=== PATIENT | male | born 1945 | race Caucasian/White ===

== ENCOUNTER → 2016-11-17 | Outpatient (CLI) | payer MEDICARE ==
[2016-11-17 13:14] LABS: ABSOLUTE BASOPHILS # (AUTO) 0.1 10^3/uL (0.0-0.2); ABSOLUTE EOSINOPHILS # (AUTO) 0.4 10^3/uL (0.0-0.6); ABSOLUTE LYMPHOCYTES (AUTO) 0.5 10^3/uL (0.5-4.7); ABSOLUTE MONOCYTES (AUTO) 0.9 10^3/uL (0.1-1.4); ABSOLUTE NEUT (AUTO) 7.9 10^3/uL (1.7-8.2); BASOPHILS % (AUTO) 0.7 % (0-2); EOSINOPHILS % (AUTO) 3.9 % (0-6); HEMATOCRIT 41.7 % (37.9-51.0); HEMOGLOBIN 13.3 g/dL (13.5-17.0); HGB HCT DIFFERENCE -1.8; LYMPHOCYTES % (AUTO) 5.5 % (13-45); MEAN CORPUSCULAR HEMOGLOBIN 28.9 pg (27.0-33.4); MEAN CORPUSCULAR HGB CONC 31.8 g/dL (32.0-36.0); MEAN CORPUSCULAR VOLUME 91 fl (80-97); MONOCYTES % (AUTO) 9.5 % (3-13); SEGMENTED NEUTROPHILS % (AUTO) 80.4 % (42-78); WHITE BLOOD COUNT 9.8 10^3/uL (4.0-10.5)
[2016-11-17 13:22] LABS: APPEARANCE,URINE CLEAR; BILIRUBIN,URINE NEGATIVE (NEGATIVE); GLUCOSE, URINE NEGATIVE (NEGATIVE); KETONES,URINE NEGATIVE (NEGATIVE); LEUKOCYTE ESTERASE,URINE NEGATIVE (NEGATIVE); NITRITE,URINE NEGATIVE (NEGATIVE); PROTEIN,URINE NEGATIVE (NEGATIVE); URINE SPECIFIC GRAVITY 1.012; UROBILINOGEN,URINE NEGATIVE mg/dL (<2.0)
[2016-11-17 13:26] LABS: ANION GAP 14 (5-19); BLOOD UREA NITROGEN 33 mg/dL (7-20); CARBON DIOXIDE 26 mmol/L (22-30); CHLORIDE 101 mmol/L (98-107); CREATININE RESULT 1.38 mg/dL (0.52-1.25); GLUCOSE 103 mg/dL (75-110); POTASSIUM 4.8 mmol/L (3.6-5.0); SODIUM 141.1 mmol/L (137-145)
[2016-11-18 11:40] LABS: CREATININE URINE 57.7 mg/dL (Not Estab.)
[2016-11-18 11:47] LABS: MICROALBUMIN URINE <3.0 ug/mL (Not Estab.)
== END ==
LOC: OD 11:35
PROVIDERS: ATTEND Internal Medicine Nephrology
DX: N18.3 Chronic kidney disease, stage 3 (moderate) (principal); Z94.0 Kidney transplant status
CPT/HCPCS: 36415; 80048; 80197; 81001; 82043; 82570; 85025

== ENCOUNTER → 2017-01-20 | Outpatient (CLI) | payer MEDICARE | LOC: OD 11:34 | PROVIDERS: ATTEND Internal Medicine Critical Care Medicine | DX: Z53.9 Procedure and treatment not carried out, unspecified reason (principal) ==

== ENCOUNTER → 2017-01-28 | Outpatient (CLI) | payer MEDICARE | LOC: RAD 12:09 | PROVIDERS: ATTEND Internal Medicine Critical Care Medicine | DX: R91.1 Solitary pulmonary nodule (principal); J47.9 Bronchiectasis, uncomplicated | CPT/HCPCS: 71250 ==

== ENCOUNTER → 2017-03-23 | Outpatient (CLI) | payer MEDICARE ==
[2017-03-23 10:09] LABS: ABSOLUTE BASOPHILS # (AUTO) 0.1 10^3/uL (0.0-0.2); ABSOLUTE EOSINOPHILS # (AUTO) 0.5 10^3/uL (0.0-0.6); ABSOLUTE LYMPHOCYTES (AUTO) 0.8 10^3/uL (0.5-4.7); ABSOLUTE MONOCYTES (AUTO) 1.2 10^3/uL (0.1-1.4); ABSOLUTE NEUT (AUTO) 6.5 10^3/uL (1.7-8.2); EOSINOPHILS % (AUTO) 5.6 % (0-6); HEMATOCRIT 42.7 % (37.9-51.0); HEMOGLOBIN 13.6 g/dL (13.5-17.0); HGB HCT DIFFERENCE -1.9; LYMPHOCYTES % (AUTO) 9.1 % (13-45); MEAN CORPUSCULAR HEMOGLOBIN 28.9 pg (27.0-33.4); MEAN CORPUSCULAR HGB CONC 31.8 g/dL (32.0-36.0); MEAN CORPUSCULAR VOLUME 91 fl (80-97); MONOCYTES % (AUTO) 13.1 % (3-13); RED CELL DISTRIBUTION WIDTH 15.7 % (11.5-14.0); SEGMENTED NEUTROPHILS % (AUTO) 71.2 % (42-78); WHITE BLOOD COUNT 9.1 10^3/uL (4.0-10.5)
[2017-03-23 10:44] LABS: ALBUMIN 3.7 g/dL (3.5-5.0); ANION GAP 11 (5-19); BLOOD UREA NITROGEN 25 mg/dL (7-20); CALCIUM 8.9 mg/dL (8.4-10.2); CARBON DIOXIDE 28 mmol/L (22-30); CHLORIDE 102 mmol/L (98-107); CREATININE RESULT 1.16 mg/dL (0.52-1.25); GLUCOSE 87 mg/dL (75-110); PHOSPHORUS 4.4 mg/dL (2.5-4.5); POTASSIUM 5.1 mmol/L (3.6-5.0)
[2017-03-24 07:20] LABS: VITAMIN D 25-HYDROXY 31.6 ng/mL (30.0-100.0)
[2017-03-24 10:57] LABS: APPEARANCE,URINE CLEAR; BILIRUBIN,URINE NEGATIVE (NEGATIVE); GLUCOSE, URINE NEGATIVE (NEGATIVE); KETONES,URINE NEGATIVE (NEGATIVE); LEUKOCYTE ESTERASE,URINE NEGATIVE (NEGATIVE); NITRITE,URINE NEGATIVE (NEGATIVE); PROTEIN,URINE NEGATIVE (NEGATIVE); URINE SPECIFIC GRAVITY 1.015; UROBILINOGEN,URINE NEGATIVE mg/dL (<2.0)
[2017-03-24 13:58] LABS: TACROLIMUS (FK506) 3.6 ng/mL (2.0-20.0)
[2017-03-25 11:40] LABS: CREATININE URINE 85.7 mg/dL (Not Estab.)
[2017-03-25 13:21] LABS: MICROALBUMIN URINE <3.0 ug/mL (Not Estab.)
== END ==
LOC: OD 09:01
PROVIDERS: ATTEND Internal Medicine Nephrology
DX: N18.3 Chronic kidney disease, stage 3 (moderate) (principal); Z94.0 Kidney transplant status
CPT/HCPCS: 36415; 80048; 80197; 81001; 82040; 82043; 82306; 82570; 83970; 84100; 85025

== ENCOUNTER → 2017-06-02 | Outpatient (CLI) | payer MEDICARE ==
[2017-06-02 11:37] LABS: ABSOLUTE BASOPHILS # (AUTO) 0.1 10^3/uL (0.0-0.2); ABSOLUTE EOSINOPHILS # (AUTO) 0.5 10^3/uL (0.0-0.6); ABSOLUTE LYMPHOCYTES (AUTO) 0.7 10^3/uL (0.5-4.7); ABSOLUTE MONOCYTES (AUTO) 0.7 10^3/uL (0.1-1.4); ABSOLUTE NEUT (AUTO) 5.3 10^3/uL (1.7-8.2); BASOPHILS % (AUTO) 1.3 % (0-2); HEMATOCRIT 41.5 % (37.9-51.0); HEMOGLOBIN 13.4 g/dL (13.5-17.0); HGB HCT DIFFERENCE -1.3; LYMPHOCYTES % (AUTO) 9.3 % (13-45); MEAN CORPUSCULAR HEMOGLOBIN 29.7 pg (27.0-33.4); MEAN CORPUSCULAR HGB CONC 32.3 g/dL (32.0-36.0); MEAN CORPUSCULAR VOLUME 92 fl (80-97); RED BLOOD COUNT 4.51 10^6/uL (4.35-5.55); RED CELL DISTRIBUTION WIDTH 16.1 % (11.5-14.0); SEGMENTED NEUTROPHILS % (AUTO) 72.4 % (42-78); WHITE BLOOD COUNT 7.3 10^3/uL (4.0-10.5)
[2017-06-02 12:08] LABS: ALANINE AMINOTRANSFERASE 33 U/L (21-72); ALBUMIN 3.9 g/dL (3.5-5.0); ALKALINE PHOSPHATASE 123 U/L (38-126); ANION GAP 11 (5-19); ASPARTATE AMINO TRANSFERASE 24 U/L (17-59); BILIRUBIN,DIRECT 0.5 mg/dL (0.0-0.4); BILIRUBIN,TOTAL 0.6 mg/dL (0.2-1.3); BLOOD UREA NITROGEN 32 mg/dL (7-20); C-REACTIVE PROTEIN 13.1 mg/L (<10.0); CALCIUM 8.9 mg/dL (8.4-10.2); CARBON DIOXIDE 26 mmol/L (22-30); CHLORIDE 105 mmol/L (98-107); CREATININE RESULT 1.37 mg/dL (0.52-1.25); GLUCOSE 101 mg/dL (75-110); SODIUM 141.8 mmol/L (137-145); TOTAL PROTEIN 7.2 g/dL (6.3-8.2)
[2017-06-02 12:15] LABS: ERYTHROCYTE SEDIMENTATION RATE 22 mm/hr (0-20)
== END ==
LOC: OD 10:11
PROVIDERS: ATTEND Physician Assistant
DX: B44.1 Other pulmonary aspergillosis (principal)
CPT/HCPCS: 36415; 80053; 85025; 85652; 86140

== ENCOUNTER → 2017-06-04 | Outpatient (CLI) | payer MEDICARE ==
--- NOTE | 2017-06-04 13:23 | RADIOLOGY REPORT (SQ) ---
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 Images reviewed with lung, soft tissue and bone windows. Reconstructed coronal and sagittal MPR images reviewed. All images st ored on PACS. All CT scanners at this facility use dose modulation, iterative reconstruction, and/or weight based d osing when appropriate to reduce radiation dose to as low as reasonably achievable (ALARA). [facility]: Dose Right [facility]: CareDose [facility]: Dose Right [facility]: Teradose 4D [facility]: [employer] RADIATION DOSE: Up-to-date CT equipment and radiation dose reduction techniques were employed. CTDIv ol: 7.3 mGy. DLP: 273 mGy-cm. mGy. LIMITATIONS: No technical limitations. FINDINGS: LUNGS AND PLEURA: There is stable bronchiectasis in the right lower lobe. Minimal parench ymal scarring. No consolidation or pleural effusions. HILAR AND MEDIASTINAL STRUCTURES: No identified masses or abnormal nodes. No obvious aneurysm. HEART AND VASCULAR STRUCTURES: There is coronary artery calcification. No pericardial effusion. UPPER ABDOMEN: No significant findings. Limited exam. THYROID AND OTHER SOFT TISSUES: No masses. No adenopathy. BONES: No significant finding. HARDWARE: Sternotomy wires are in place. OTHER: No other significant findings. IMPRESSION: Stable CT of the chest with bronchiectasis and scarring in the right lower lobe. No shane picious nodules. No consolidation. TECHNICAL DOCUMENTATION: JOB ID: [id number] Quality ID # [id number]: Final reports with documentation of one or more dose reduction techniques (e.g., Au tomated exposure control, adjustment of the mA and/or kV according to patient size, use of iterative reconstruction technique) 2010 [employer] All Rights Reserved
== END ==
LOC: RAD 12:54
PROVIDERS: ATTEND Physician Assistant
DX: B44.1 Other pulmonary aspergillosis (principal)
CPT/HCPCS: 71250

== ENCOUNTER → 2017-07-26 | Outpatient (CLI) | payer MEDICARE ==
[2017-07-26 10:55] LABS: ANION GAP 11 (5-19); BLOOD UREA NITROGEN 33 mg/dL (7-20); CALCIUM 9.2 mg/dL (8.4-10.2); CARBON DIOXIDE 26 mmol/L (22-30); CHLORIDE 105 mmol/L (98-107); CREATININE RESULT 1.12 mg/dL (0.52-1.25); GLUCOSE 84 mg/dL (75-110); POTASSIUM 5.1 mmol/L (3.6-5.0); SODIUM 142.1 mmol/L (137-145)
== END ==
LOC: OD 09:31
PROVIDERS: ATTEND Internal Medicine Nephrology
DX: N18.2 Chronic kidney disease, stage 2 (mild) (principal); Z94.0 Kidney transplant status
CPT/HCPCS: 36415; 80048; 80197

== ENCOUNTER → 2017-07-30 | Outpatient (CLI) | payer MEDICARE ==
--- NOTE | 2017-07-30 14:11 | RADIOLOGY REPORT (SQ) ---
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 Images reviewed with lung, soft tissue and bone windows. Reconstructed coronal and sagittal MPR images reviewed. All images st ored on PACS. All CT scanners at this facility use dose modulation, iterative reconstruction, and/or weight based d osing when appropriate to reduce radiation dose to as low as reasonably achievable (ALARA). [facility]: Dose Right [facility]: CareDose [facility]: Dose Right [facility]: Teradose 4D [facility]: [employer] RADIATION DOSE: Up-to-date CT equipment and radiation dose reduction techniques were employed. CTDIv ol: 7.1 mGy. DLP: 289 mGy-cm. mGy. LIMITATIONS: No technical limitations. FINDINGS: LUNGS AND PLEURA: Upper lobes are hyperinflated and hyperlucent. No dense consolidation in the lung parenchyma on today's study. subcentimeter smooth round subpleura l nodules are present in the periphery of the right upper lobe, right middle lobe near the minor fiss ure, and at both lung bases, similar or less prominent than on previous exams. There are no pleural effusions today. No focal consolidation in the lower lobes. There is mild stable bronchiectasis in the bilateral lower lobes. No pneumothorax. HILAR AND MEDIASTINAL STRUCTURES: No identified masses or abnormal nodes. No obvious aneurysm. Stab le subcentimeter calcified left hilar lymph nodes. HEART AND VASCULAR STRUCTURES: No aneurysm. No pericardial effusion. Very heavy ruby coronary art yandy calcification. UPPER ABDOMEN: No significant findings. Limited exam. THYROID AND OTHER SOFT TISSUES: No masses. No adenopathy. BONES: Osteoporotic. No acute fracture. HARDWARE: Post sternotomy for CABG. OTHER: No other significant findings. IMPRESSION: No recurrent consolidation. No pleural effusions. Chronic obstructive disease in the l ungs, bronchiectasis bilateral lower lobes, small postinflammatory benign nodules. TECHNICAL DOCUMENTATION: JOB ID: [id number] Quality ID # [id number]: Final reports with documentation of one or more dose reduction techniques (e.g., Au tomated exposure control, adjustment of the mA and/or kV according to patient size, use of iterative reconstruction technique) 2010 [employer]- All Rights Reserved
== END ==
LOC: RAD 12:09
PROVIDERS: ATTEND Internal Medicine Critical Care Medicine
DX: A42.9 Actinomycosis, unspecified (principal); A43.0 Pulmonary nocardiosis; R91.1 Solitary pulmonary nodule; J45.40 Moderate persistent asthma, uncomplicated; R05 Cough; N18.9 Chronic kidney disease, unspecified; J44.9 Chronic obstructive pulmonary disease, unspecified; Z80.1 Family history of malignant neoplasm of trachea, bronchus and lung; Z94.0 Kidney transplant status
CPT/HCPCS: 71250

== ENCOUNTER 2017-11-04 14:01 | Inpatient (IN) | payer MEDICARE ==
[2017-11-04] MEDS ORDERED: IPRATROPIUM/ALBUTEROL 0.5-2.5 MG/3 ML AMPUL NEB ONE ×3 (14:07→22:30)
[2017-11-04] MEDS ORDERED: METHYLPREDNISOLONE INJ 125 MG/2 ML SDV IV ONE (14:42)
--- NOTE | 2017-11-04 14:43 | ER Document Report ---
ED Respiratory Problem - General Stated Complaint: DIFFICULTY BREATHING Time Seen by Provider: 11/04/17 14:29 Notes: This is a 72-year-old male to emergency department chief complaint shortness of breath. On antibiotics recently. Recently started on doxycycline yesterday due to concern for possible pneumonia. Cannot seem to catch his breath. Getting much worse. Seen by the rf engineer as well as the cooler room worker. On chronic immunosuppression for kidney transplant. TRAVEL OUTSIDE OF THE [place] IN LAST 30 DAYS: No - Related Data Allergies/Adverse Reactions: aspirin [Aspirin] Allergy (Verified 09/01/17 18:00) iron [Iron] Allergy (Verified 09/01/17 18:00) Past Medical History - General Information source: Patient, [facility] Records - Social History Smoking Status: Former Smoker Cigarette use (# per day): No Frequency of alcohol use: None Drug Abuse: None Lives with: Spouse/Significant other Family History: Reviewed & Not Pertinent, CAD, Hypertension - Past Medical History Cardiac Medical History: Reports: Hx Atrial Fibrillation, Hx Congestive Heart Failure, Hx Coronary Artery Disease, Hx Heart Attack - x2, Hx Hypercholesterolemia, Hx Pulmonary Embolism Denies: Hx Hypertension Pulmonary Medical History: Reports: Hx Asthma, Hx Bronchitis, Hx COPD, Hx Pneumonia, Hx Sleep Apnea Neurological Medical History: Denies: Hx Cerebrovascular Accident, Hx Seizures Endocrine Medical History: Denies: Hx Diabetes Mellitus Type 1, Hx Diabetes Mellitus Type 2 Renal/ Medical History: Reports: Hx End Stage Renal Disease - Patient was previously on hemodialysis prior to kidney transplant., Hx Hemodialysis - No longer on dialysis. Denies: Hx Peritoneal Dialysis Musculoskeltal Medical History: Reports Hx Arthritis Psychiatric Medical History: Denies: Hx Depression Past Surgical History: Reports: Hx Cardiac Catheterization, Hx Cardiac Surgery - CABG, Hx Coronary Artery Bypass Graft - 3 vessels on 09/19/2008, Hx Coronary Stent - 10/15/1999, Hx Kidney (Renal Surgery) - Transplant, Hx Open Heart Surgery - x 3V - Immunizations Hx Diphtheria, Pertussis, Tetanus Vaccination: Yes Hx Pneumococcal Vaccination: 06/25/16 Review of Systems - Review of Systems Constitutional: Malaise, Weakness EENT: No symptoms reported Cardiovascular: No symptoms reported. denies: Chest pain Respiratory: Cough, Short of breath, Wheezing. denies: Hemoptysis Gastrointestinal: No symptoms reported Genitourinary: No symptoms reported Male Genitourinary: No symptoms reported Musculoskeletal: No symptoms reported Skin: No symptoms reported Hematologic/Lymphatic: No symptoms reported Neurological/Psychological: No symptoms reported Physical Exam - Vital signs Vitals: Pulse Resp BP Pulse Ox 90 12 133/66 H 100 11/04/17 14:03 11/04/17 14:03 11/04/17 14:03 11/04/17 14:03 Interpretation: Normal, Tachypneic - General General appearance: Appears well, Alert - HEENT Head: Normocephalic, Atraumatic Eyes: Normal Pupils: PERRL - Respiratory Respiratory status: No respiratory distress Chest status: Nontender Breath sounds: Wheezing Chest palpation: Normal - Cardiovascular Rhythm: Regular Heart sounds: Normal auscultation Murmur: No - Abdominal Inspection: Normal Distension: No distension Bowel sounds: Normal Tenderness: Nontender Organomegaly: No organomegaly - Back Back: Normal, Nontender - Extremities General upper extremity: Normal inspection, Nontender, Normal color, Normal ROM , Normal temperature General lower extremity: Normal inspection, Nontender, Normal color, Normal ROM , Normal temperature, Normal weight bearing. No: Sadie's sign - Neurological Neuro grossly intact: Yes Cognition: Normal Orientation: AAOx4 Unique Coma Scale Eye Opening: Spontaneous Unique Coma Scale Verbal: Oriented Mcrae [place] Coma Scale Motor: Obeys Commands Unique Coma Scale Total: 15 Speech: Normal Motor strength normal: LUE, RUE, LLE, RLE Sensory: Normal - Psychological Associated symptoms: Normal affect, Normal mood - Skin Skin Temperature: Warm Skin Moisture: Dry Skin Color: Normal Course - Re-evaluation Re-evalutation: 11/04/17 17:08 The patient is with audible wheezing. History of COPD and pulmonary infections. Already on antibiotics. Does have a history of PE. 11/04/17 18:15 Patient states he does not feel a whole lot better. Just feels extremely short of breath. Has extreme exertional dyspnea. Will order VQ scan as well as a echocardiogram. Consulted with Dr. Heath. Patient will likely need to be admitted 11/04/17 19:11 Consult with patient's cooler room worker, Dr. Saavedra. Recommends getting CT scan, sputum culture and giving IV Levaquin and admitted to the hospital. Thinks that there is probably some cardiac issues as well and the echocardiogram will be helpful. He will see patient tomorrow. Admits to the hospitalist service at this time 11/04/17 19:24 Consulted with the hospitalist, Dr. Anaya. Will admit at this time. Starting on Levaquin and Zosyn based on his previous cultures. Will get CT scan without contrast and VQ scan. May need to get CT angiogram if this is unrevealing or patient is not getting better. - Vital Signs Vital signs: Temp Pulse Resp BP Pulse Ox 90 12 133/65 H 100 11/04/17 14:03 11/04/17 17:01 11/04/17 17:00 11/04/17 17:01 - Laboratory Result Diagrams: 11/04/17 17:50 11/04/17 17:50 Laboratory results interpreted by me: 11/04/17 11/04/17 11/04/17 17:50 17:50 17:50 RBC 4.18 L Hgb 12.4 L RDW 15.5 H Seg Neutrophils % 83.1 H Lymphocytes % 6.5 L BUN 24 H Glucose 157 H Lactic Acid 2.4 H NT-Pro-B Natriuret Pep Total Protein 6.1 L Albumin 3.4 L 11/04/17 17:50 RBC Hgb RDW Seg Neutrophils % Lymphocytes % BUN Glucose Lactic Acid NT-Pro-B Natriuret Pep 1980 H Total Protein Albumin Discharge - Discharge Clinical Impression: COPD exacerbation Congestive heart failure Qualifiers: Congestive heart failure type: unspecified Congestive heart failure chronicity : unspecified Qualified Code(s): I50.9 - Heart failure, unspecified Condition: Good Disposition: ADMITTED INPATIENT Admitting Provider: Jazlyn Anaya Unit Admitted: I[facility]U Referrals: PORSCHE SAPP MD [Primary Care Provider] - Follow up as needed
--- NOTE | 2017-11-04 15:35 | RADIOLOGY REPORT (SQ) ---
EXAM DESCRIPTION: CHEST SINGLE VIEW COMPLETED DATE/TIME: 11/04/2017 3:14 pm REASON FOR STUDY: sob COMPARISON: Chest CT scan dated July 2017 EXAM PARAMETERS: NUMBER OF VIEWS: One view. TECHNIQUE: Single frontal radiographic view of the chest acquired. RADIATION DOSE: NA LIMITATIONS: None. FINDINGS: LUNGS AND PLEURA: No opacities, masses or pneumothorax. No pleural effusion. Chronic appe aring changes are identified. I cannot exclude a component of obstructive lung disease. MEDIASTINUM AND HILAR STRUCTURES: No masses. Contour normal. HEART AND VASCULAR STRUCTURES: Cardiac silhouette is at the upper limits of normal in size. BONES: No acute findings. HARDWARE: Patient is status post median sternotomy with coronary bypass surgery. OTHER: No other significant finding. IMPRESSION: NO ACUTE RADIOGRAPHIC FINDING IN THE CHEST. TECHNICAL DOCUMENTATION: JOB ID: [id number] [employer]- All Rights Reserved
[2017-11-04] MEDS ORDERED: ALBUTEROL SULFATE 0.083% NEB 2.5 MG/3 ML AMPUL NEB ONE (16:44)
[2017-11-04 18:24] LABS: ABSOLUTE EOSINOPHILS # (AUTO) 0.1 10^3/uL (0.0-0.6); ABSOLUTE LYMPHOCYTES (AUTO) 0.5 10^3/uL (0.5-4.7); ABSOLUTE MONOCYTES (AUTO) 0.7 10^3/uL (0.1-1.4); ABSOLUTE NEUT (AUTO) 6.6 10^3/uL (1.7-8.2); BASOPHILS % (AUTO) 0.6 % (0-2); EOSINOPHILS % (AUTO) 0.7 % (0-6); HEMATOCRIT 38.6 % (37.9-51.0); HEMOGLOBIN 12.4 g/dL (13.5-17.0); LYMPHOCYTES % (AUTO) 6.5 % (13-45); MEAN CORPUSCULAR HEMOGLOBIN 29.6 pg (27.0-33.4); MEAN CORPUSCULAR HGB CONC 32.1 g/dL (32.0-36.0); MEAN CORPUSCULAR VOLUME 92 fl (80-97); MONOCYTES % (AUTO) 9.1 % (3-13); PLATELET COUNT 290 10^3/uL (150-450); RED BLOOD COUNT 4.18 10^6/uL (4.35-5.55); RED CELL DISTRIBUTION WIDTH 15.5 % (11.5-14.0); SEGMENTED NEUTROPHILS % (AUTO) 83.1 % (42-78); TOTAL CELLS COUNTED % (AUTO) 100 %; WHITE BLOOD COUNT 7.9 10^3/uL (4.0-10.5)
[2017-11-04 18:45] LABS: ALANINE AMINOTRANSFERASE 41 U/L (21-72); ALBUMIN 3.4 g/dL (3.5-5.0); ALKALINE PHOSPHATASE 102 U/L (38-126); ANION GAP 10 (5-19); ASPARTATE AMINO TRANSFERASE 29 U/L (17-59); BILIRUBIN,DIRECT 0.3 mg/dL (0.0-0.4); BILIRUBIN,TOTAL 0.4 mg/dL (0.2-1.3); BLOOD UREA NITROGEN 24 mg/dL (7-20); CALCIUM 8.7 mg/dL (8.4-10.2); CARBON DIOXIDE 28 mmol/L (22-30); CHLORIDE 103 mmol/L (98-107); GLUCOSE 157 mg/dL (75-110); POTASSIUM 4.4 mmol/L (3.6-5.0); SODIUM 140.5 mmol/L (137-145); TOTAL PROTEIN 6.1 g/dL (6.3-8.2)
[2017-11-04 18:56] LABS: TROPONIN I 0.016 ng/mL
[2017-11-04] MEDS ORDERED: LEVOFLOXACIN 500 MG/D5W RTU 500 MG/100 ML RTUPB IV ONE (19:10)
[2017-11-04] MEDS ORDERED: PIPERACILLIN/TAZOBACTAM 3.375 GM VIAL IV ONE ×2 (19:22)
[2017-11-04 20:15] LABS: APPEARANCE,URINE CLEAR; BILIRUBIN,URINE NEGATIVE (NEGATIVE); COLOR,URINE YELLOW; GLUCOSE, URINE NEGATIVE (NEGATIVE); KETONES,URINE NEGATIVE (NEGATIVE); LEUKOCYTE ESTERASE,URINE NEGATIVE (NEGATIVE); NITRITE,URINE NEGATIVE (NEGATIVE); PROTEIN,URINE NEGATIVE (NEGATIVE); URINE SPECIFIC GRAVITY 1.023; UROBILINOGEN,URINE NEGATIVE mg/dL (<2.0)
--- NOTE | 2017-11-04 20:29 | XCELERA REPORT ---
[address] [address] Transthoracic Echocardiogram Report Name: GOEMZPAOLOJR Age: 72 yrs Gender: Male : 1945 Patient Status: Inpatient Patient Location: [address] Study Date: 11/04/2017 07:06 PM Height: 65 in Weight: 170 lb BSA: 1.8 m2 Procedure: A complete two-dimensional transthoracic echocardiogram was performed (2D, M-mode, spectral and color flow Doppler). The study was technically difficult with many images being suboptimal in quality. Reason For Study: sob Ordering Physician: MITCHELL GERBER Performed By: Benita Blue Interpretation Summary The Ejection Fraction estimate is 45-50% Left ventricular systolic function is borderline reduced. There is mild concentric left ventricular hypertrophy. The left ventricle is grossly normal size. Regional wall motion abnormalities cannot be excluded due to limited visualization. Doppler measurements suggest pseudonormalized left ventricular relaxation, which is associated with grade II/IV or mild to moderate diastolic dysfunction The right ventricular systolic function is normal. The right ventricle is borderline dilated. The left atrium is mildly dilated. The right atrium is mildly dilated. There is a mild to moderate amount of mitral regurgitation There is no mitral valve stenosis. There is a trace to mild amount of aortic regurgitation There is mild aortic stenosis There is a trace to mild amount of tricuspid regurgitation There is mild pulmonary hypertension by echo Right ventricular systolic pressure is estimated to be elevated at 30- 40mmHg. The aortic root is not well visualized. The inferior vena cava appeared normal and decreased > 50% with respiration (RAP 5-10 mmHg) There is no pericardial effusion. MMode/2D Measurements & Calculations RVDd: 3.3 cm LVIDd: 6.3 cmFS: 18.7 % Ao root diam: 3.3 cm IVSd: 1.2 cm LVIDs: 5.1 cmEDV(Teich): 198.0 ml LVPWd: 1.2 cmESV(Teich): 123.0 ml Ao root area: 8.7 cm2 EF(Teich): 37.9 % LA dimension: 4.4 cm LVOT diam: 2.2 cm LVOT area: 3.7 cm2 Doppler Measurements & Calculations MV E max gary: MV P1/2t max gary: Ao V2 max: LV V1 max P.0 cm/sec 120.1 cm/sec 223.0 cm/sec 6.6 mmHg MV A max gary: MV P1/2t: 46.0 msec Ao max PG: LV V1 mean P.1 cm/sec MVA(P1/2t): 4.8 cm2 19.9 mmHg 3.8 mmHg MV E/A: 1.2 MV dec slope: Ao V2 mean: LV V1 max: 764.6 cm/sec2 152.4 cm/sec 127.6 cm/sec Ao mean PG: LV V1 mean: 10.2 mmHg 89.2 cm/sec Ao V2 VTI: LV V1 VTI: 48.3 cm 30.8 cm MARISA(I,D): 2.4 cm2 MARISA(V,D): 2.1 cm2 SV(LVOT): 114.2 ml PA V2 max: TR max gary: 105.1 cm/sec 286.4 cm/sec PA max P.4 mmHg TR max P.8 mmHg Left Ventricle The left ventricle is grossly normal size. There is mild concentric left ventricular hypertrophy. Left ventricular systolic function is borderline reduced. The Ejection Fraction estimate is 45-50%. Doppler measurements suggest pseudonormalized left ventricular relaxation, which is associated with grade II/IV or mild to moderate diastolic dysfunction. Regional wall motion abnormalities cannot be excluded due to limited visualization. Right Ventricle The right ventricle is borderline dilated. There is normal right ventricular wall thickness. The right ventricular systolic function is normal. Atria The right atrium is mildly dilated. The left atrium is mildly dilated. Interarterial septum not well visualized and not well dopplered. Cannot comment on ASD/PFO presence. Mitral Valve There is mild to moderate mitral annular calcification. There is no mitral valve stenosis. There is a mild to moderate amount of mitral regurgitation. Aortic Valve The aortic valve is moderately calcified. There is mild aortic stenosis. There is a trace to mild amount of aortic regurgitation. Tricuspid Valve The tricuspid valve is not well visualized, but is grossly normal. There is no tricuspid stenosis. There is a trace to mild amount of tricuspid regurgitation. There is mild pulmonary hypertension by echo. Right ventricular systolic pressure is estimated to be elevated at 30-40mmHg. Pulmonic Valve The pulmonic valve is not well visualized. Great Vessels The aortic root is not well visualized. The inferior vena cava appeared normal and decreased > 50% with respiration (RAP 5-10 mmHg). Effusions There is no pericardial effusion. : MITCHELL GERBER > Karey Heath
--- NOTE | 2017-11-04 20:42 | PDOC CONSULTATION ---
Consultation Consult Date: 11/04/17 Attending physician:: MINH STEWART Consult reason:: Shortness of breath, known CAD History of Present Illness Admission Date/PCP: 11/04/17 19:32 PORSCHE SAPP MD Patient complains of: Shortness of breath History of Present Illness: PAOLO GOMEZ JR is a 72 year old male, with history of coronary artery disease, status post coronary artery bypass graft surgery, history of CHF, history of renal transplant, COPD and redness granulomatosis who has been chronically short of breath but has gotten worse over time with acute worsening today. Patient was seen by Dr. Rae who felt that patient may have CHF and therefore was sent over for further assessment and management. Patient on questioning denied any chest pain. This history was reviewed and confirmed and supplemented. Past Medical History Cardiac Medical History: Reports: Atrial Fibrillation, Congestive Heart Failure , Coronary Artery Disease, Myocardial Infarction - x2, Hyperlipidema, Pulmonary Embolism Denies: Hypertension Pulmonary Medical History: Reports: Asthma, Bronchitis, Chronic Obstructive Pulmonary Disease (COPD), Pneumonia, Sleep Apnea Neurological Medical History: Denies: Seizures Endocrine Medical History: Denies: Diabetes Mellitus Type 1, Diabetes Mellitus Type 2 Renal/ Medical History: Reports: End Stage Renal Disease - Patient was previously on hemodialysis prior to kidney transplant. Musculoskeltal Medical History: Reports: Arthritis Psychiatric Medical History: Denies: Depression Hematology: Denies: Anemia Past Surgical History Past Surgical History: Reports: Cardiac Catheterization, Coronary Artery Bypass Graft - 3 vessels on 09/19/2008, Coronary Stent - 10/15/1999 Social History Information Source: Patient Lives with: Spouse/Significant other Smoking Status: Former Smoker Frequency of Alcohol Use: None Hx Recreational Drug Use: No Hx Prescription Drug Abuse: No - Advance Directive Resuscitation Status: Full Code Surrogate healthcare decision maker:: Patient spouse is the surrogate decision-maker Family History Family History: Reviewed & Not Pertinent, CAD, Hypertension Parental Family History Reviewed: Yes Children Family History Reviewed: Yes Sibling(s) Family History Reviewed.: Yes Medication/Allergy Home Medications: Albuterol Sulfate [Proair Hfa Inhalation Aerosol 8.5 gm Mdi] 1 puff IH Q4HP PRN 11/04/17 Albuterol Sulfate [Ventolin 0.083% Neb 2.5 mg/3 ml Ampul] 1 vial NEB RTQ4HP PRN 11/04/17 Apixaban [Eliquis 5 mg Tablet] 5 mg PO Q12 11/04/17 Atorvastatin Calcium [Lipitor 40 mg Tablet] 40 mg PO QHS 11/04/17 Budesonide/Formoterol Fumarate [Symbicort Hfa 160-4.5 Mcg Inhaler 6 gm] 1 puff IH Q12 11/04/17 Cetirizine HCl [Zyrtec 10 mg Tablet] 10 mg PO DAILY 11/04/17 Clopidogrel Bisulfate [Plavix 75 mg Tablet] 75 mg PO DAILY 11/04/17 Diltiazem HCl [Tiazac] 120 mg PO DAILY 11/04/17 Docusate Sodium [Colace 100 mg Capsule] 100 mg PO BID 11/04/17 Ergocalciferol (Vitamin D2) [Drisdol 50,000 Unit (1.25MG) Capsule] 50,000 unit PO ASDIR PRN MDD TAKE ON & 11/04/17 Famotidine [Pepcid 20 mg Tablet] 40 mg PO QHS 11/04/17 Gabapentin [Neurontin 300 mg Capsule] 300 mg PO BID@,11/04/17 Gabapentin [Neurontin 300 mg Capsule] 600 mg PO DAILY@11/04/17 Magnesium Oxide [Mag-Ox 400 mg Tablet] 400 mg PO DAILY 11/04/17 Midodrine HCl [Proamatine 5 Mg Tablet] 5 mg PO Q12 11/04/17 Minocycline HCl [Minocin] 100 mg PO DAILY 11/04/17 Mycophenolate Sodium [Mycophenolic Acid] 360 mg PO Q8 11/04/17 Nitroglycerin [Nitrostat 0.4 mg (1/150 Gr) Tabs 25/Bottle] 1 tab SL Q5MP PRN 09/11 Oxycodone HCl/Acetaminophen [Percocet 5-325 mg Tablet] 1 tab PO Q4HP PRN Prednisone [Deltasone 5 mg Tablet] 5 mg PO DAILY 11/04/17 Ropinirole HCl [Requip] 1 mg PO BID@,11/04/17 Ropinirole HCl [Requip] 2 mg PO QHS 11/04/17 Tacrolimus Anhydrous [Prograf 1 Mg Capsule] 1 mg PO Q12 11/04/17 Tiotropium [place] [Spiriva Handihaler 18 mcg/dose (30 Dose)] 1 cap IH DAILY 09/11 Allergies/Adverse Reactions: aspirin [Aspirin] Allergy (Verified 09/01/17 18:00) iron [Iron] Allergy (Verified 09/01/17 18:00) Review of Systems Review of Systems: Please see history of present illness and past medical history as wall. Constitutional: No definite fever or chills reported. Head : No recent chronic headaches, recent head injury. Eyes: No recent eye pain, diplopia, redness, discharge, acute visual changes. Ears: No recent chronic ear pain, acute hearing loss, ear discharge. Oral cavity: No recent ulcerations, bleeding, oral cavity discomfort. Neck: No recent acute neck pain reported. Hematologic: No recent easy bruising or bleeding or hematologic malignancy reported. Lymphatic: No recent lymphatic malignancy, chronic lymphadenopathy reported yet Cardiovascular system review: See history of present illness. Respiratory system review: Recent cough with greenish yellow sputum production but no hemoptysis, blood clots in the lungs reported. Marked increased shortness of breath on exertion Gastrointestinal system review: Negative for any recent acute or chronic abdominal pain, hematemesis, melena, recent change in bowel habits. Genitourinary system review: No recent acute or chronic hematuria, flank pain, UTI etc. reported. Skin system review: Negative for any recent abnormal bruising, no rash, no pruritus reported. Neurologic: No prior history of strokes, mini strokes, seizure disorder. Psychologic: No history of major psychosis or major depression reported. Musculoskeletal: Minor aches and pains reported. No acute joint swelling reported. Endocrine: No recent polyuria, polydipsia, recent heat or cold intolerance. Physical Exam Vital Signs: Temp Pulse Resp BP Pulse Ox 90 13 133/65 H 100 11/04/17 14:03 11/04/17 19:00 11/04/17 17:00 11/04/17 19:00 Exam: GENERAL: well-nourished and in no acute distress. Alert and oriented x3 HEAD: Atraumatic, normocephalic. EYES: Pupils equal round and reactive to light, extraocular movements intact, sclera anicteric, conjunctiva are normal. ENT: TMs normal, nares patent, oropharynx clear without exudates. Moist mucous membranes. No oral ulcerations or bleeding gums noted NECK: supple without lymphadenopathy. Trachea is central. No cervical or axillary lymphadenopathy noted. Carotids are 2+, JVD WNL LUNGS: Respiration seems nonlabored, no significant accessory muscle action noted. Bibasilar coarse crackles noted both bases with minimal dullness noted both bases. CHEST: Palpation of the chest wall shows no significant chest wall tenderness. No other significant abnormalities noted. HEART: Harvey FILM SORTER, No PSH, 1/6 SHARON aortic area, 1/6 cox systolic murmur mitral area, no rubs, no gallops. ABDOMEN: Soft, no significant tenderness appreciated, normoactive bowel sounds. No guarding, no rebound. No rigidity noted . No masses appreciated. EXTREMITIES: Pedal pulses are 1-2+, no calf tenderness noted. No clubbing or cyanosis. 1+ pedal edema noted NEUROLOGICAL: Focused neurological exam showed no significant neurologic deficit. Normal speech, no focal weakness appreciated. PSYCH: Normal mood, normal affect. Judgment and insight within normal limits. SKIN: No significant ecchymosis, rash, ulcerations or signs of pruritus noted. MUSCULOSKELETAL EXAM: No significant joint swelling noted. Results Laboratory Results: 11/04/17 19:36 Urine Color YELLOW Urine Appearance CLEAR Urine pH 5.0 Ur Specific [place] 1.023 Urine Protein NEGATIVE Urine Glucose (UA) NEGATIVE Urine Ketones NEGATIVE Urine Blood NEGATIVE Urine Nitrite NEGATIVE Ur Leukocyte Esterase NEGATIVE Urine WBC (Auto) 0 Urine RBC (Auto) 0 EKG Comments: Sinus rhythm, nonprogression of R-wave V1 to V3, no acute ST-T wave changes noted. Impressions: Chest X-Ray 11/04/17 14:42 IMPRESSION: NO ACUTE RADIOGRAPHIC FINDING IN THE CHEST. Assessment & Plan - Diagnosis (1) COPD exacerbation Is this a current diagnosis for this admission?: Yes (2) Congestive heart failure Qualifiers: Congestive heart failure type: combined Congestive heart failure chronicity : chronic Qualified Code(s): I50.42 - Chronic combined systolic (congestive) and diastolic (congestive) heart failure Is this a current diagnosis for this admission?: Yes (3) CAD (coronary artery disease) Qualifiers: Coronary Disease-Associated Artery/Lesion type: unspecified vessel or lesion type [place] vs. transplanted heart: [place] heart Associated angina: angina presence unspecified Qualified Code(s): I25.10 - Atherosclerotic heart disease of [place] coronary artery without angina pectoris Is this a current diagnosis for this admission?: Yes (4) Respiratory tract infection Is this a current diagnosis for this admission?: Yes - Notes Notes: 2D echo was obtained. This was reviewed. Patient's LVEF is noted to be at around 45-50%. Echocardiogram was technically difficult. Feel that patient's dyspnea is predominantly from COPD exacerbation but with some contribution from CHF. Chest x-ray showed remarkably clear lung freeman. At this point will recommend to low-dose diuretics, aggressive treatment of COPD , interstitial lung disease. May consider pulmonary evaluation. Also recommend ruling out pulmonary embolism in view of history of pulmonary embolism and patient's shortness of breath seems out of proportion to his chest x-ray and other findings. Other possible explanation could be ischemia equivalent symptoms. Will continue to follow patient during this hospitalization. - Time Time Spent: 30 to 50 Minutes - CODE STATUS was discussed, patient remains full code. Surrogate decision-maker unchanged. Multiple medical problems were addressed. More than 50% of the time spent coordinating care, discussing management plans with involved caregivers. Management plans discussed with involved personnels. Medical decision making was of moderate to high complexity , patient's has multiple comorbidities. Medications reviewed and adjusted accordingly: Yes
--- NOTE | 2017-11-04 21:08 | RADIOLOGY REPORT (SQ) ---
EXAM DESCRIPTION: CT CHEST WITHOUT COMPLETED DATE/TIME: 11/04/2017 8:55 pm REASON FOR STUDY: sob COMPARISON: 11/04/2017 TECHNIQUE: CT scan performed of the chest without intravenous contrast. Images reviewed with lung, soft tissue and bone windows. Reconstructed coronal and sagittal MPR images reviewed. All images st ored on PACS. All CT scanners at this facility use dose modulation, iterative reconstruction, and/or weight based d osing when appropriate to reduce radiation dose to as low as reasonably achievable (ALARA). [facility]: Dose Right [facility]: CareDose [facility]: Dose Right [facility]: Teradose 4D [facility]: [employer] RADIATION DOSE: CT Rad equipment meets quality standard of care and radiation dose reduction techniq ues were employed. CTDIvol: 11.1 mGy. DLP: 448 mGy-cm. mGy. LIMITATIONS: No technical limitations. FINDINGS: LUNGS AND PLEURA: Minimal interstitial changes at the right base. No consolidation. No e ffusions. HILAR AND MEDIASTINAL STRUCTURES: No identified masses or abnormal nodes. No obvious aneurysm. HEART AND VASCULAR STRUCTURES: Prior CABG. No aneurysm. UPPER ABDOMEN: Cystic lesion in the pancreatic head. Measures 3.6 cm compared to 5 cm previously. L ikely a resolving pancreatic pseudocysts. THYROID AND OTHER SOFT TISSUES: No masses. No adenopathy. BONES: Sternal wires. HARDWARE: CABG hardware. OTHER: No other significant findings. IMPRESSION: Minimal interstitial changes at the right base. Could represent acute pneumonitis. Cystic lesion in the pancreatic head which is decreased in size since 01/28/2017. Likely a resolving p ancreatic pseudocyst. TECHNICAL DOCUMENTATION: JOB ID: [id number] Quality ID # [id number]: Final reports with documentation of one or more dose reduction techniques (e.g., Au tomated exposure control, adjustment of the mA and/or kV according to patient size, use of iterative reconstruction technique) 2010 [employer]- All Rights Reserved
--- NOTE | 2017-11-04 21:09 | RADIOLOGY REPORT (SQ) ---
EXAM DESCRIPTION: NM LUNG VENT/PERF SCAN COMPLETED DATE/TIME: 11/04/2017 9:00 pm REASON FOR STUDY: sob, hx of PE COMPARISON: Chest radiograph RADIONUCLIDE AND DOSE: 5.49 millicuries TC-99m MAA Intravenous 32.4 millicuries TC-99m DTPA Inhaled aerosol TECHNIQUE: Eight views of the lungs acquired post ventilation of DTPA aerosol. Eight matching views of the lungs acquired following injection of MAA. LIMITATIONS: None. FINDINGS: VENTILATION: Extensive ventilatory abnormality throughout the lungs. PERFUSION: Matching perfusion defects. No mismatch. OTHER: No other significant finding. IMPRESSION: Low probability pulmonary embolus. TECHNICAL DOCUMENTATION: JOB ID: [id number] [employer]- All Rights Reserved
[2017-11-04] MEDS ORDERED: LEVALBUTEROL HCL NEB 1.25 MG/3 ML AMPUL NEB PRN (21:45)
[2017-11-04] MEDS ORDERED: ACETAMINOPHEN 325 MG TABLET PO PRN (21:45)
[2017-11-04] MEDS ORDERED: APIXABAN 5 MG TABLET PO SCH (21:45)
[2017-11-04] MEDS ORDERED: PHARMACY COMMUNICATION ORDER MC NR (21:45)
[2017-11-04] MEDS ORDERED: APIXABAN 5 MG TABLET PO ONE (22:30)
[2017-11-05] MEDS ORDERED: PIPERACILLIN SODIUM/TAZOBACTAM 4.5 GM in NORMAL SALINE 100 ML IV SCH ×2
[2017-11-05] MEDS: METHYLPREDNISOLONE INJ 40 MG/1 ML SDV IV SCH ×4 (00:20→17:33)
[2017-11-05] MEDS: OXYCODONE-ACETAMINOPHEN 5-325 MG TABLET PO PRN ×5 (00:21→20:48)
[2017-11-05] MEDS: FAMOTIDINE 20 MG TABLET PO SCH ×3 (00:21→21:40)
[2017-11-05] MEDS: GUAIFENESIN 600 MG TABLET.SA PO SCH ×3 (00:21→21:40)
[2017-11-05] MEDS: SENNOSIDES/DOCUSATE 8.6-50 MG 1 EACH TABLET PO SCH ×2 (00:23→21:40)
[2017-11-05] MEDS: TACROLIMUS ANHYDROUS 1 MG CAPSULE PO SCH ×3 (02:24→21:39)
[2017-11-05] MEDS ORDERED: PIPERACILLIN/TAZOBACTAM 4.5 GM VIAL IV ONE (02:34)
[2017-11-05] MEDS: PIPERACILLIN SODIUM/TAZOBACTAM 4.5 GM in NORMAL SALINE 100 ML IV SCH ×4 (03:39→20:39)
[2017-11-05 06:53] LABS: HEMATOCRIT 38.2 % (37.9-51.0); HEMOGLOBIN 12.4 g/dL (13.5-17.0); MEAN CORPUSCULAR HEMOGLOBIN 29.8 pg (27.0-33.4); MEAN CORPUSCULAR HGB CONC 32.5 g/dL (32.0-36.0); MEAN CORPUSCULAR VOLUME 92 fl (80-97); PLATELET COUNT 280 10^3/uL (150-450); RED BLOOD COUNT 4.16 10^6/uL (4.35-5.55); RED CELL DISTRIBUTION WIDTH 15.5 % (11.5-14.0); WHITE BLOOD COUNT 6.6 10^3/uL (4.0-10.5)
[2017-11-05 07:18] LABS: ALANINE AMINOTRANSFERASE 44 U/L (21-72); ALBUMIN 3.4 g/dL (3.5-5.0); ALKALINE PHOSPHATASE 98 U/L (38-126); ANION GAP 12 (5-19); ASPARTATE AMINO TRANSFERASE 24 U/L (17-59); BILIRUBIN,DIRECT 0.4 mg/dL (0.0-0.4); BILIRUBIN,TOTAL 0.5 mg/dL (0.2-1.3); BLOOD UREA NITROGEN 23 mg/dL (7-20); CALCIUM 9.1 mg/dL (8.4-10.2); CARBON DIOXIDE 25 mmol/L (22-30); CHLORIDE 104 mmol/L (98-107); GLUCOSE 157 mg/dL (75-110); POTASSIUM 4.6 mmol/L (3.6-5.0); SODIUM 140.9 mmol/L (137-145); TOTAL PROTEIN 6.2 g/dL (6.3-8.2)
--- NOTE | 2017-11-05 07:41 | PDOC H&P ---
History of Present Illness Admission Date/PCP: 11/04/17 19:32 PORSCHE SAPP MD History of Present Illness: Edis Mathew is a 72-year-old male with past medical history of coronary artery disease, Loretta's granulomatosis, status post kidney transplant , atrial fibrillation, squamous and basal cell carcinoma the left, chronic immune suppression, chronic pain who presents to the emergency department with complaints of shortness of breath. Patient reports that he was on Levaquin for the last 34 days. He reports that he does not have any fevers or chills, but has had productive green sputum. 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 Patient apparently saw his wine steward and was told that they felt that his shortness of breath was secondary to cardiac reasons, and he saw his national sales today Dr. Rae, who felt that this was secondary to his pulmonic issues. Subsequently patient was sent to the emergency department. Currently he is improving on 2 L of oxygen. The emergency department elected to consult emergently the national sales and an a bedside echo was obtained which revealed an EF of 45-50% and grade 2 diastolic dysfunction as well as mild pulmonary hypertension. VQ scan performed was low probability for pulmonary embolus, and plain CT of the chest revealed right lower lobe interstitial lung disease. He is referred to the hospitalist service for COPD exacerbation and possible early pneumonia. Past Medical History Cardiac Medical History: Reports: Atrial Fibrillation, Congestive Heart Failure , Coronary Artery Disease, Myocardial Infarction - x2, Hyperlipidema, Pulmonary Embolism Denies: Hypertension Pulmonary Medical History: Reports: Asthma, Bronchitis, Chronic Obstructive Pulmonary Disease (COPD), Pneumonia, Sleep Apnea Neurological Medical History: Denies: Seizures Endocrine Medical History: Denies: Diabetes Mellitus Type 1, Diabetes Mellitus Type 2 Renal/ Medical History: Reports: End Stage Renal Disease - Patient was previously on hemodialysis prior to kidney transplant., Other - Kidney transplant Malignancy Medical History: Reports: Skin Cancer Musculoskeltal Medical History: Reports: Arthritis Psychiatric Medical History: Denies: Depression Hematology: Denies: Anemia Infectious Medical History: Denies: Other Infectious History Note: Nocardia Past Surgical History Past Surgical History: Reports: Cardiac Catheterization, Coronary Artery Bypass Graft - 3 vessels on 09/19/2008, Coronary Stent - 10/15/1999, Renal Transplant Social History Lives with: Spouse/Significant other Smoking Status: Former Smoker Frequency of Alcohol Use: None Hx Recreational Drug Use: No Hx Prescription Drug Abuse: No - Advance Directive Resuscitation Status: Full Code Surrogate healthcare decision maker:: Brandon Mathew, Family History Family History: CAD, Hypertension Parental Family History Reviewed: Yes Children Family History Reviewed: Yes Sibling(s) Family History Reviewed.: Yes Medication/Allergy Home Medications: Albuterol Sulfate [Proair Hfa Inhalation Aerosol 8.5 gm Mdi] 1 puff IH Q4HP PRN 11/04/17 Albuterol Sulfate [Ventolin 0.083% Neb 2.5 mg/3 ml Ampul] 1 vial NEB RTQ4HP PRN 11/04/17 Apixaban [Eliquis 5 mg Tablet] 5 mg PO Q12 11/04/17 Atorvastatin Calcium [Lipitor 40 mg Tablet] 40 mg PO QHS 11/04/17 Budesonide/Formoterol Fumarate [Symbicort Hfa 160-4.5 Mcg Inhaler 6 gm] 1 puff IH Q12 11/04/17 Cetirizine HCl [Zyrtec 10 mg Tablet] 10 mg PO DAILY 11/04/17 Clopidogrel Bisulfate [Plavix 75 mg Tablet] 75 mg PO DAILY 11/04/17 Diltiazem HCl [Tiazac] 120 mg PO DAILY 11/04/17 Docusate Sodium [Colace 100 mg Capsule] 100 mg PO BID 11/04/17 Ergocalciferol (Vitamin D2) [Drisdol 50,000 Unit (1.25MG) Capsule] 50,000 unit PO ASDIR PRN MDD TAKE ON & 11/04/17 Famotidine [Pepcid 20 mg Tablet] 40 mg PO QHS 11/04/17 Furosemide [Lasix 40 mg Tablet] 40 mg PO BID 11/04/17 Gabapentin [Neurontin 300 mg Capsule] 300 mg PO BID@06,11/04/17 Gabapentin [Neurontin 300 mg Capsule] 600 mg PO DAILY@14 11/04/17 Magnesium Oxide [Mag-Ox 400 mg Tablet] 400 mg PO DAILY 11/04/17 Midodrine HCl [Proamatine 5 Mg Tablet] 5 mg PO Q12 11/04/17 Minocycline HCl [Minocin] 100 mg PO DAILY 11/04/17 Mycophenolate Sodium [Mycophenolic Acid] 360 mg PO Q8 11/04/17 Nitroglycerin [Nitrostat 0.4 mg (1/150 Gr) Tabs 25/Bottle] 1 tab SL Q5MP PRN 09/11 Oxycodone HCl/Acetaminophen [Percocet 5-325 mg Tablet] 1 tab PO Q4HP PRN Prednisone [Deltasone 5 mg Tablet] 5 mg PO DAILY 11/04/17 Promethazine HCl 25 mg PO 6XD PRN 11/04/17 Ropinirole HCl [Requip] 1 mg PO BID@06,14 11/04/17 Ropinirole HCl [Requip] 2 mg PO QHS 11/04/17 Tacrolimus Anhydrous [Prograf 1 Mg Capsule] 1 mg PO BID 11/04/17 Tacrolimus Anhydrous [Prograf 1 Mg Capsule] 1 mg PO Q12 11/04/17 Tiotropium [place] [Spiriva Handihaler 18 mcg/dose (30 Dose)] 1 cap IH DAILY 09/11 Warfarin Sodium [Coumadin] 4 mg PO DAILY MDD Th, Fr, Sat, Sun 11/04/17 Allergies/Adverse Reactions: aspirin [Aspirin] Allergy (Verified 09/01/17 18:00) iron [Iron] Allergy (Verified 09/01/17 18:00) Review of Systems Constitutional: PRESENT: fatigue. ABSENT: chills, fever(s), headache(s), weight gain, weight loss Eyes: ABSENT: visual disturbances Ears: ABSENT: hearing changes Cardiovascular: PRESENT: edema. ABSENT: chest pain, dyspnea on exertion, orthropnea, palpitations Respiratory: PRESENT: cough, dyspnea, sputum. ABSENT: hemoptysis Gastrointestinal: ABSENT: abdominal pain, constipation, diarrhea, hematemesis, hematochezia, nausea, vomiting Genitourinary: ABSENT: dysuria, hematuria Musculoskeletal: ABSENT: joint swelling Integumentary: ABSENT: rash, wounds Neurological: ABSENT: abnormal gait, abnormal speech, confusion, dizziness, focal weakness, syncope Psychiatric: ABSENT: anxiety, depression, homidical ideation, suicidal ideation Endocrine: ABSENT: cold intolerance, heat intolerance, polydipsia, polyuria Hematologic/Lymphatic: ABSENT: easy bleeding, easy bruising Physical Exam Vital Signs: Temp Pulse Resp BP Pulse Ox 90 13 133/65 H 100 11/04/17 14:03 11/04/17 19:00 11/04/17 17:00 11/04/17 19:00 General appearance: PRESENT: no acute distress, well-developed, well-nourished Head exam: PRESENT: atraumatic, normocephalic Eye exam: PRESENT: conjunctiva pink, EOMI, PERRLA. ABSENT: scleral icterus Ear exam: PRESENT: normal external ear exam Mouth exam: PRESENT: moist, tongue midline Neck exam: ABSENT: JVD, lymphadenopathy, thyromegaly, tracheal deviation Respiratory exam: PRESENT: rhonchi, unlabored, wheezes. ABSENT: accessory muscle use, rales, tachypnea Cardiovascular exam: PRESENT: RRR, +S1, +S2, systolic murmur. ABSENT: diastolic murmur, rubs Pulses: PRESENT: normal dorsalis pedis pul Vascular exam: PRESENT: normal capillary refill GI/Abdominal exam: PRESENT: normal bowel sounds, soft. ABSENT: distended, guarding, mass, organolmegaly, rebound, tenderness Rectal exam: PRESENT: deferred Extremities exam: PRESENT: full ROM, +1 edema - Right lower extremity. ABSENT: calf tenderness, clubbing Neurological exam: PRESENT: alert, awake, oriented to person, oriented to place , oriented to time, oriented to situation, CN II-XII grossly intact. ABSENT: motor sensory deficit Psychiatric exam: PRESENT: appropriate affect, normal mood. ABSENT: homicidal ideation, suicidal ideation Skin exam: PRESENT: dry, intact, rash - Bilateral arm discoloration secondary to minocycline, warm. ABSENT: cyanosis Results Laboratory Results: 11/04/17 19:36 Urine Color YELLOW Urine Appearance CLEAR Urine pH 5.0 Ur Specific [place] 1.023 Urine Protein NEGATIVE Urine Glucose (UA) NEGATIVE Urine Ketones NEGATIVE Urine Blood NEGATIVE Urine Nitrite NEGATIVE Ur Leukocyte Esterase NEGATIVE Urine WBC (Auto) 0 Urine RBC (Auto) 0 11/04/17 11/04/17 11/04/17 17:50 17:50 17:50 WBC 7.9 Hgb 12.4 L Plt Count 290 Seg Neutrophils % 83.1 H Sodium 140.5 Potassium 4.4 Chloride 103 Carbon Dioxide 28 Anion Gap 10 BUN 24 H Creatinine 1.08 Glucose 157 H Lactic Acid 2.4 H Calcium 8.7 Total Bilirubin 0.4 Direct Bilirubin 0.3 AST 29 ALT 41 Alkaline Phosphatase 102 Troponin I NT-Pro-B Natriuret Pep Total Protein 6.1 L Albumin 3.4 L 11/04/17 17:50 WBC Hgb Plt Count Seg Neutrophils % Sodium Potassium Chloride Carbon Dioxide Anion Gap BUN Creatinine Glucose Lactic Acid Calcium Total Bilirubin Direct Bilirubin AST ALT Alkaline Phosphatase Troponin I 0.016 NT-Pro-B Natriuret Pep 1980 H Total Protein Albumin Impressions: Chest X-Ray 11/04/17 14:42 IMPRESSION: NO ACUTE RADIOGRAPHIC FINDING IN THE CHEST. Assessment & Plan - Diagnosis (1) Pneumonia Qualifiers: Pneumonia type: due to unspecified organism Lung location: unspecified part of lung Is this a current diagnosis for this admission?: Yes Plan: Patient is growing gram-negative rods in his sputum culture. He has a history of Pseudomonas in his sputum initiate patient onScheduled nebulized treatments and Zosyn sputum culture pending (2) COPD exacerbation Is this a current diagnosis for this admission?: Yes Plan: Place patient on scheduled nebulized treatments and re-evaluate for improvement. PRN Xopenex Place patient on IV Solu-Medrol Obtain sputum culture (3) Transplanted kidney Is this a current diagnosis for this admission?: Yes Plan: Check tacrolimus level (4) Anemia of chronic disease Is this a current diagnosis for this admission?: Yes (5) Chronic a-fib Is this a current diagnosis for this admission?: Yes (6) Chronic anticoagulation Is this a current diagnosis for this admission?: Yes Plan: Have expressed concern to patient over him being on both Plavix and Eliquis but will continue these as patient is highly allergic to aspirin (7) Esophageal reflux disease Qualifiers: Esophagitis presence: esophagitis presence not specified Qualified Code(s) : K21.9 - Gastro-esophageal reflux disease without esophagitis Is this a current diagnosis for this admission?: Yes (8) History of pulmonary embolism Is this a current diagnosis for this admission?: Yes Plan: VQ scan negative (9) Opiate dependence, continuous Is this a current diagnosis for this admission?: Yes (10) Peripheral neuropathy Qualifiers: Peripheral neuropathy type: idiopathic neuropathy, unspecified Qualified Code(s): G60.9 - Hereditary and idiopathic neuropathy, unspecified Is this a current diagnosis for this admission?: Yes (11) Coronary atherosclerosis Is this a current diagnosis for this admission?: Yes (12) Nocardia infection Is this a current diagnosis for this admission?: Yes Plan: Continue minocycline, patient may use his from home (13) Pulmonary hypertension Is this a current diagnosis for this admission?: Yes (14) Full code status Is this a current diagnosis for this admission?: Yes - Time Time Spent: 50 to 70 Minutes Medications reviewed and adjusted accordingly: Yes
--- NOTE | 2017-11-05 08:00 | EKG REPORT ---
SEVERITY:- ABNORMAL ECG - SINUS RHYTHM NONSPECIFIC INTRAVENTRICULAR CONDUCTION DELAY ABNRM R PROG, CONSIDER ASMI OR LEAD PLACEMENT : Confirmed by: Jorgito Street MD 05-Nov-2017 07:59:41
[2017-11-05] MEDS: IPRATROPIUM/ALBUTEROL 0.5-2.5 MG/3 ML AMPUL NEB SCH ×4 (08:20→19:55)
[2017-11-05] MEDS: DOCUSATE SODIUM 100 MG CAPSULE PO SCH ×2 (09:42→17:33)
[2017-11-05] MEDS: CLOPIDOGREL BISULFATE 75 MG TABLET PO SCH (09:43)
[2017-11-05] MEDS: APIXABAN 5 MG TABLET PO SCH ×2 (09:48→17:34)
--- NOTE | 2017-11-05 11:24 | PDOC PROGRESS REPORT ---
Subjective Progress Note for:: 11/05/17 Subjective:: Still has dyspnea. However Patient seems to be doing better with gradual improvement. Pt is denying any chest arm or neck discomfort. Patient denying any PND, orthopnea. Patient denied any sustained palpitations, dizziness, syncope, near syncope. Patient denying any fever chills. Patient denying any other significant discomfort. Patient is maintaining sinus rhythm. Frequent APCs noted. Review of systems: Rest review of systems negative. Medications: Medications have been reviewed. Reason For Visit: PNEUMONIA, COPD EXACERBATION HX OF KTP Physical Exam Vital Signs: Temp Pulse Resp BP Pulse Ox 97.5 F 92 18 148/66 H 100 11/05/17 08:24 11/05/17 08:24 11/05/17 08:24 11/05/17 08:24 11/05/17 08:24 Intake & Output 11/04/17 11/05/17 11/06/17 06:59 06:59 06:59 Intake Total 337 Output Total 0 Balance 337 Weight 78.4 kg Exam: GENERAL: well-nourished and in no acute distress. Alert and oriented x3 HEAD: Atraumatic, normocephalic. EYES: Pupils equal round and reactive to light, extraocular movements intact, sclera anicteric, conjunctiva are normal. ENT: TMs normal, nares patent, oropharynx clear without exudates. Moist mucous membranes. No oral ulcerations or bleeding gums noted NECK: supple without lymphadenopathy. Trachea is central. No cervical or axillary lymphadenopathy noted. Carotids are 2+, JVD WNL LUNGS: Respiration seems nonlabored, no significant accessory muscle action noted. Bibasilar coarse crackles and mild wheezing noted. CHEST: Palpation of the chest wall shows no significant chest wall tenderness. No other significant abnormalities noted. HEART: [place] [employer], No PSH, 1/6 SHARON aortic area, 1/6 cox systolic murmur mitral area, no rubs, no gallops. ABDOMEN: Soft, no significant tenderness appreciated, normoactive bowel sounds. No guarding, no rebound. No rigidity noted . No masses appreciated. EXTREMITIES: Pedal pulses are 1-2+, no calf tenderness noted. No clubbing or cyanosis.trace to 1+ pedal edema noted NEUROLOGICAL: Focused neurological exam showed no significant neurologic deficit. Normal speech, no focal weakness appreciated. PSYCH: Normal mood, normal affect. Judgment and insight within normal limits. SKIN: No significant ecchymosis, rash, ulcerations or signs of pruritus noted. MUSCULOSKELETAL EXAM: No significant joint swelling noted. Results Laboratory Results: 11/05/17 06:25 11/05/17 06:25 11/04/17 11/05/17 11/05/17 19:36 06:25 06:25 WBC 6.6 RBC 4.16 L Hgb 12.4 L Hct 38.2 MCV 92 MCH 29.8 MCHC 32.5 RDW 15.5 H Plt Count 280 Sodium 140.9 Potassium 4.6 Chloride 104 Carbon Dioxide 25 Anion Gap 12 BUN 23 H Creatinine 1.09 Est GFR ( Amer) > 60 Est GFR (Non-Af Amer) > 60 Glucose 157 H Calcium 9.1 Total Bilirubin 0.5 AST 24 ALT 44 Alkaline Phosphatase 98 Total Protein 6.2 L Albumin 3.4 L Urine Color YELLOW Urine Appearance CLEAR Urine pH 5.0 Ur Specific [place] 1.023 Urine Protein NEGATIVE Urine Glucose (UA) NEGATIVE Urine Ketones NEGATIVE Urine Blood NEGATIVE Urine Nitrite NEGATIVE Ur Leukocyte Esterase NEGATIVE Urine WBC (Auto) 0 Urine RBC (Auto) 0 EKG Comments: Telemetry strips reviewed shows patient maintaining sinus rhythm. No sustained tachycardia or bradycardia arrhythmias noted. Occasional PACs noted. Impressions: Chest X-Ray 11/04/17 14:42 IMPRESSION: NO ACUTE RADIOGRAPHIC FINDING IN THE CHEST. Lung Scan-VQ NM 11/04/17 18:04 IMPRESSION: Low probability pulmonary embolus. Chest CT 11/04/17 19:10 IMPRESSION: Minimal interstitial changes at the right base. Could represent acute pneumonitis. Cystic lesion in the pancreatic head which is decreased in size since 01/28/2017. Likely a resolving pancreatic pseudocyst. Assessment & Plan - Diagnosis (1) Dyspnea Qualifiers: Dyspnea type: unspecified Qualified Code(s): R06.00 - Dyspnea, unspecified Is this a current diagnosis for this admission?: Yes (2) COPD exacerbation Is this a current diagnosis for this admission?: Yes (3) Congestive heart failure Qualifiers: Congestive heart failure type: combined Congestive heart failure chronicity : chronic Qualified Code(s): I50.42 - Chronic combined systolic (congestive) and diastolic (congestive) heart failure Is this a current diagnosis for this admission?: Yes (4) CAD (coronary artery disease) Qualifiers: Coronary Disease-Associated Artery/Lesion type: unspecified vessel or lesion type [place] vs. transplanted heart: [place] heart Associated angina: angina presence unspecified Qualified Code(s): I25.10 - Atherosclerotic heart disease of [place] coronary artery without angina pectoris Is this a current diagnosis for this admission?: Yes (5) Respiratory tract infection Is this a current diagnosis for this admission?: Yes - Notes Notes: Started Lasix 20mg po daily. Dyspnea: Most likely related to COPD exacerbation, underlying emphysema with some contribution from CHF. Have placed patient on low-dose Lasix. Have discussed CT scan results, VQ scan results, venous duplex results and also EKGs and rhythm strips. Patient also seems improved. Coronary artery disease: Symptomatically stable. Initial troponin I negative. EKGs has been nonacute. CHF: Feel that patient is mildly fluid overloaded. Therefore did start Lasix 20 mg p.o. daily. Respiratory tract infection: Continue with antibiotic therapy and bronchodilator therapy etc. COPD with exacerbation. Continue current therapeutic plans with steroids, bronchodilator therapy, antibiotics etc. Patient does have a complicated past medical history and significant ongoing concurrent problems. However cardiac talbot he seems stable. Will continue to follow until discharge. - Time Time with patient: Greater than 35 minutes - CODE STATUS was discussed, patient remains full code. Surrogate decision-maker unchanged. Multiple medical problems were addressed. More than 50% of the time spent coordinating care, discussing management plans with involved caregivers. Management plans discussed with involved personnels. Medical decision making was of moderate to high complexity, patient's has multiple comorbidities. Medications reviewed and adjusted accordingly: Yes
[2017-11-05] MEDS: FUROSEMIDE 20 MG TABLET PO SCH (11:42)
[2017-11-05] MEDS: MYCOPHENOLATE MOFETIL 250 MG CAPSULE PO SCH ×3 (14:43→18:00)
--- NOTE | 2017-11-05 17:06 | XCELERA REPORT ---
[address] [address] Lower Extremity Venous Evaluation Name: PAOLO GOMEZ JR Age: 72 yrs Gender: Male : 1945 Patient Status: Inpatient Patient Location: [address] [place] [address] Study Date: 11/05/2017 10:03 AM Procedure: Color flow and duplex imaging of the veins of the right lower extremity as well as the left Common Femoral vein. Reason For Study: RLE edema, hxof dvt Ordering Physician: AJIT WALDROP Performed By: Nichole Chang Right Sided Venous Evaluation Complex, non vascular mass in the Popliteal fossa, measures 4 x 3 x 2 cms. Normal vessel filling wall to wall, compression and augmentation as well as Colour flow down to the infrageniculate veins. Left Sided Venous Evaluation The left common femoral vein is fully compressible. Spontaneous and phasic flow is present in the left common femoral vein. Interpretation Summary No duplex evidence of DVT or obstruction in the right lower extremity nor in the left Common Femoral vein. Unusual complex mass in the right Popliteal fossa, further imaging to be considered. : AJIT WALDROP [place]
[2017-11-05] MEDS: LACTOBACILLUS ACIDOPHILUS 250 MG TAB PO SCH (17:33)
--- NOTE | 2017-11-05 18:28 | PROGRESS NOTE E ---
Progress Note NAME: PAOLO GOMEZ : 1945 AGE: 72Y DATE: 11/05/2017 ROOM: 314 SUBJECTIVE: The patient is out of bed to the bedside chair. He states he feels better today. He does admit to a strong cough but is unable to produce any sputum. The patient has been afebrile. His blood pressure has been in a good range. He denies any nausea, vomiting, diarrhea. No dizziness or chest pain. The patient does not voice any other concerns at this time. REVIEW OF SYSTEMS: Rest of review of systems is negative. MEDICATIONS: Medications have been reviewed. OBJECTIVE: Mr. Gomez is a 72-year-old male who is awake, alert, and oriented to person, place, and situation. He is verbal, conversational, ambulatory, does not appear to be in any acute distress. VITAL SIGNS: Temperature is 97.5, pulse 73, respirations 20, blood pressure is 111/55, oxygen saturation of 100% on 4 L nasal cannula. SKIN: Warm and dry. No rashes. No diaphoretic. HEENT: Pupils equal, round, reactive to light and accommodation. Conjunctivae was pink. No evidence of JVD. CARDIOVASCULAR SYSTEM: Heart is regular. There is no murmur or rub. CHEST: Clear, symmetrical, unlabored. ABDOMEN: Soft, nontender, nondistended. BACK: No CVA tenderness, sacral edema. EXTREMITIES: No clubbing, cyanosis, or edema. PSYCHIATRIC: Appropriate affect, pleasant mood. DIAGNOSTICS/LAB VALUES: Hematology obtained on 11/05/2017, WBC are 6.6, hemoglobin is 12.4, hematocrit is 38.2, platelet count is 280,000. Chemistries obtained on 11/05/2017, sodium is 144, potassium 3.8, chloride is 104, carbon dioxide 25, BUN 23, creatinine is 1.09, glucose 127, calcium is 9.1, bilirubin is 0.5, AST 24, ALT 44, alk phos 98, total protein 6.2, albumin 3.4. IMPRESSION AND PLAN: 1. GRAM-NEGATIVE JOSE PNEUMONIA. Will continue the patient's current treatment with Zosyn. Wait for repeat sputum cultures. It appears the patient did have a history of pseudomonas as well. 2. CHRONIC OBSTRUCTIVE PULMONARY DISEASE. Will continue the patient's home inhalers as well as p.r.n. Xopenex and Solu-Medrol, follow. 3. ACUTE ON CHRONIC HYPOXEMIC RESPIRATORY FAILURE. Will continue supplemental O2. 4. TRANSPLANT KIDNEY. Will continue Prograf. 5. ANEMIA OF CHRONIC DISEASE, STABLE. 6. CHRONIC ATRIAL FIBRILLATION. Will continue the patient's home medications. 7. CHRONIC ANTICOAGULATION. Will continue the patient's home medications. 8. ESOPHAGEAL REFLUX DISEASE. Will continue the patient's home medications. 9. HISTORY OF PULMONARY EMBOLISM. VQ scan is negative. 10. OPIATE DEPENDENCY, CONTINUOUS. Will continue the patient's home medication. 11. PERIPHERAL NEUROPATHY. Will continue the patient's home medications. 12. CORONARY ARTERIOSCLEROSIS. Continue home medication. 13. NOCARDIA INFECTION. The patient is on minocycline. He can continue his home medications. 14. PULMONARY HYPERTENSION. Continue home medications. DISPOSITION: THE PATIENT IS FULL CODE. Pending patient's symptomatology and diagnostic findings, will reevaluate in the a.m. Time spent on this followup, including assessment, plan, physical examination, patient education, review of records, and specialty collaboration, was 25 minutes. DICTATING PHYSICIAN: BUFFY HAIR NP [id number] PHY#: [id number] ID: [id number] JOB#: [id number] ACCT: [id number] cc: > SHARONA
[2017-11-05] MEDS ORDERED: ROPINIROLE HCL 2 MG TABLET PO SCH (22:00)
[2017-11-05] MEDS: FLUTICASONE/SALMETEROL DISKUS 500-50 MCG/DOSE IH SCH (22:46)
[2017-11-05] MEDS: GABAPENTIN 300 MG CAPSULE PO SCH (22:48)
[2017-11-06] MEDS: OXYCODONE-ACETAMINOPHEN 5-325 MG TABLET PO PRN (00:36)
[2017-11-06] MEDS: METHYLPREDNISOLONE INJ 40 MG/1 ML SDV IV SCH ×2 (00:36→05:18)
[2017-11-06] MEDS: PIPERACILLIN SODIUM/TAZOBACTAM 4.5 GM in NORMAL SALINE 100 ML IV SCH ×2 (02:46→10:38)
[2017-11-06] MEDS: GABAPENTIN 300 MG CAPSULE PO SCH (05:18)
[2017-11-06] MEDS ORDERED: ROPINIROLE HCL 1 MG TABLET PO SCH ×3 (06:00→22:00)
[2017-11-06] MEDS: IPRATROPIUM/ALBUTEROL 0.5-2.5 MG/3 ML AMPUL NEB SCH ×2 (07:56→11:53)
[2017-11-06] MEDS ORDERED: TIOTROPIUM BROMIDE DPI 5 CAP/KIT (18 MCG/CAP) IH SCH (10:00)
[2017-11-06] MEDS: GUAIFENESIN 600 MG TABLET.SA PO SCH (10:48)
[2017-11-06] MEDS: LACTOBACILLUS ACIDOPHILUS 250 MG TAB PO SCH (10:48)
[2017-11-06] MEDS: FAMOTIDINE 20 MG TABLET PO SCH (10:49)
[2017-11-06] MEDS: CLOPIDOGREL BISULFATE 75 MG TABLET PO SCH (10:49)
[2017-11-06] MEDS: APIXABAN 5 MG TABLET PO SCH (10:49)
[2017-11-06] MEDS: DOCUSATE SODIUM 100 MG CAPSULE PO SCH (10:49)
[2017-11-06] MEDS: FLUTICASONE/SALMETEROL DISKUS 500-50 MCG/DOSE IH SCH (10:50)
[2017-11-06] MEDS: TACROLIMUS ANHYDROUS 1 MG CAPSULE PO SCH (10:51)
--- NOTE | 2017-11-06 11:34 | PDOC PROGRESS REPORT ---
Subjective Progress Note for:: 11/06/17 Subjective:: Patient claims significant improvement and has ambulated without any problems claims that he is now basically baseline to what he was doing at home. Pt is denying any chest arm or neck discomfort. Patient denying any PND, orthopnea. Patient denied any sustained palpitations, dizziness, syncope, near syncope. Patient denying any fever chills. Patient denying any other significant discomfort. Patient is maintaining sinus rhythm. Occasional APCs noted. Review of systems: Rest review of systems negative. Medications: Medications have been reviewed. Reason For Visit: PNEUMONIA Physical Exam Vital Signs: Temp Pulse Resp BP Pulse Ox 97.5 F 95 16 144/71 H 94 11/06/17 07:38 11/06/17 07:56 11/06/17 07:56 11/06/17 07:38 11/06/17 07:56 Intake & Output 11/05/17 11/06/17 11/07/17 06:59 06:59 06:59 Intake Total 1500 Output Total 1775 Balance -275 Weight 76.9 kg Exam: GENERAL: well-nourished and in no acute distress. Alert and oriented x3 HEAD: Atraumatic, normocephalic. EYES: Pupils equal round and reactive to light, extraocular movements intact, sclera anicteric, conjunctiva are normal. ENT: TMs normal, nares patent, oropharynx clear without exudates. Moist mucous membranes. No oral ulcerations or bleeding gums noted NECK: supple without lymphadenopathy. Trachea is central. No cervical or axillary lymphadenopathy noted. Carotids are 2+, JVD WNL LUNGS: Respiration seems nonlabored, no significant accessory muscle action noted. Few coarse crackles noted both bases. No wheezes rales or rhonchi noted. No significant dullness noted on percussion. CHEST: Palpation of the chest wall shows no significant chest wall tenderness. No other significant abnormalities noted. HEART: [place] [employer]CHITECT, No PSH, 1/6 SHARON aortic area, 1/6 cox systolic murmur mitral area, no rubs, no gallops. ABDOMEN: Soft, no significant tenderness appreciated, normoactive bowel sounds. No guarding, no rebound. No rigidity noted . No masses appreciated. EXTREMITIES: Pedal pulses are 1-2+, no calf tenderness noted. No clubbing or cyanosis.trace pedal edema noted NEUROLOGICAL: Focused neurological exam showed no significant neurologic deficit. Normal speech, no focal weakness appreciated. PSYCH: Normal mood, normal affect. Judgment and insight within normal limits. SKIN: No significant ecchymosis, rash, ulcerations or signs of pruritus noted. MUSCULOSKELETAL EXAM: No significant joint swelling noted. Results EKG Comments: Telemetry strips reviewed showed sinus rhythm with occasional APCs and VPCs. Impressions: Chest X-Ray 11/04/17 14:42 IMPRESSION: NO ACUTE RADIOGRAPHIC FINDING IN THE CHEST. Lung Scan-VQ NM 11/04/17 18:04 IMPRESSION: Low probability pulmonary embolus. Chest CT 11/04/17 19:10 IMPRESSION: Minimal interstitial changes at the right base. Could represent acute pneumonitis. Cystic lesion in the pancreatic head which is decreased in size since 01/28/2017. Likely a resolving pancreatic pseudocyst. Assessment & Plan - Diagnosis (1) Dyspnea Qualifiers: Dyspnea type: unspecified Qualified Code(s): R06.00 - Dyspnea, unspecified Is this a current diagnosis for this admission?: Yes (2) COPD exacerbation Is this a current diagnosis for this admission?: Yes (3) Congestive heart failure Qualifiers: Congestive heart failure type: combined Congestive heart failure chronicity : chronic Qualified Code(s): I50.42 - Chronic combined systolic (congestive) and diastolic (congestive) heart failure Is this a current diagnosis for this admission?: Yes (4) CAD (coronary artery disease) Qualifiers: Coronary Disease-Associated Artery/Lesion type: unspecified vessel or lesion type [place] vs. transplanted heart: [place] heart Associated angina: angina presence unspecified Qualified Code(s): I25.10 - Atherosclerotic heart disease of [place] coronary artery without angina pectoris Is this a current diagnosis for this admission?: Yes (5) Respiratory tract infection Is this a current diagnosis for this admission?: Yes - Notes Notes: Patient has shown significant improvement in his general condition. Patient did tolerate Lasix p.o. and seems to have been improved since it was started yesterday. At this point will recommend continuing low-dose diuretics, concurrent management of his COPD exacerbation, CAD etc. as he were doing. Patient was encouraged to ambulate. He is expecting to be discharged today. Cardiac evaluations, rhythm strips discussed. 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 - Time Time with patient: 15-25 minutes - CODE STATUS was discussed, patient remains full code. Surrogate decision-maker unchanged. Multiple medical problems were addressed. More than 50% of the time spent coordinating care, discussing management plans with involved caregivers. Management plans discussed with involved personnels. Medical decision making was of moderate to high complexity , patient's has multiple comorbidities. Medications reviewed and adjusted accordingly: Yes
[2017-11-06] MEDS ORDERED: ERGOCALCIFEROL (VITAMIN D2) 50000 UNIT (1.25 MG) CAPSULE PO PRN (11:52)
[2017-11-06] MEDS ORDERED: ALBUTEROL SULFATE HFA (90 MCG/PUFF) 200 PUFF/8.5 GM MDI IH PRN (11:52)
[2017-11-06] MEDS ORDERED: ALBUTEROL SULFATE 0.083% NEB 2.5 MG/3 ML AMPUL NEB PRN (11:52)
[2017-11-06] MEDS ORDERED: NITROGLYCERIN 0.4 MG/TAB 25 TAB/BOTTLE SL PRN (11:52)
[2017-11-06] MEDS ORDERED: OXYCODONE-ACETAMINOPHEN 5-325 MG TABLET PO PRN (11:52)
[2017-11-06] MEDS ORDERED: MINOCYCLINE HCL 100 MG PO SCH (12:00)
[2017-11-06] MEDS ORDERED: CETIRIZINE 10 MG TABLET PO SCH (12:00)
[2017-11-06] MEDS ORDERED: CLOPIDOGREL BISULFATE 75 MG TABLET PO SCH (12:00)
[2017-11-06] MEDS: FUROSEMIDE 20 MG TABLET PO SCH (12:51)
[2017-11-06] MEDS ORDERED: (PENDING PHARMACY ID) (Mycophenolate Sodium [Mycophenolic Acid] 360 MG) PO SCH (14:00)
[2017-11-06] MEDS ORDERED: MYCOPHENOLATE SODIUM 360 MG PO SCH (14:00)
[2017-11-06] MEDS ORDERED: GABAPENTIN 300 MG CAPSULE PO SCH ×3 (14:00→22:00)
[2017-11-06 14:41] VITALS: BP 126/63
[2017-11-06] MEDS ORDERED: DOCUSATE SODIUM 100 MG CAPSULE PO SCH (18:00)
--- NOTE | 2017-11-06 18:49 | CONSULTATION REPORT E ---
Duplicate/ Error. MTDD
--- NOTE | 2017-11-06 19:03 | CONSULTATION REPORT E ---
Consultation Report NAME: PAOLO GOMEZ : 1945 AGE: 72Y DATE: 11/05/2017 ROOM: 314 A TO: LORENE BRADFORD M.D. FROM: AJIT WALDROP M.D. Requesting Physician HISTORY OF PRESENT ILLNESS: The patient is a 72-year-old male with a past medical history of severe COPD, kidney transplant, on immunosuppression, admitted because of increased shortness of breath and increasing chest tightness. The patient has been coughing yellow-green phlegm over the last 3-4 weeks. Sputum culture showed Pseudomonas aeruginosa senstive to Levaquin. The patient was placed on Levaquin 750 mg once daily for about 3 weeks. He was seen in the pulmonary clinic about 3 days ago and was started on doxicycline 100 mg cap po daily. The patient was admitted yesterday due to severe SOB, wheezing and chest tightness The patient has history of severe COPD - severe chrobic bronchitis, and asthma, history of pneumonia, and obstructive sleep apnea. Has chronic kidney disease and status post renal transplant and currently on immunosuppressive therapy. ALLERGIES: 1. ASPIRIN 2. IRON REVIEW OF SYSTEMS: CONSTITUTIONAL: Has no fever or chills. EYES: No conjunctival pallor or eye pain. EARS, NOSE, AND THROAT: No ear drainage or nasal discharge. HEAD AND NECK: No scalp swelling or tenderness. RESPIRATORY: Complains of increased shortness of breath, wheezing, and chest tightness. Has been coughing up green phlegm. Treated for pseudomonas infection of the respiratory tract for the last 3 weeks, on Levaquin 750 mg daily. GASTROINTESTINAL: No nausea, vomiting, diarrhea. CARDIAC: No history of chest pain or chest tightness. History of heart attack. . GENITOURINARY: No dysuria, hematuria, urinary stones. History of renal transplant PHYSICAL EXAM: GENERAL: Patient is awake, alert, coherent, oriented x3. VITAL SIGNS: Temperature 97.6 with a T-max of 98.4. Heart rate is 96-102. Blood pressure is 127/74. Respirations 20. Saturation is 97% on 2 L. EYES: Conjunctival. EARS, NOSE, AND THROAT: No ear drainage noted. No nasal discharge. HEAD AND NECK: No scalp tenderness. Neck supple. CARDIOVASCULAR: S1/S2 distant. Normal rate and regular rhythm. ABDOMEN: Flabby. Positive bowel sounds. Soft, nondistended, tender. EXTREMITIES: no jint swelling cellulitis. LABORATORY DATA: On admission, CBC showed a white count of 10.9 yesterday and 6.6 this morning; hemoglobin is 12.4 this morning, and platelet count is 218, and no bands noted on yesterday's CBC differential. Chemistries today show a sodium of 140, potassium is 4.6, chloride 104, CO2 is 25, BUN 12, creatinine is 1.09, calcium is 9.1, total bili 0.5, direct bili 0.4. NT-BNP is elevated. SGOT is 24, SGPT 44, alkaline phos 98, total protein 6.2, and albumin 3.4. Lactate was 2.4 yesterday. IMAGING STUDIES: Chest CT scan showed some infiltrates involving the right lower lobe with subsegmental opacities. Pneumonia could not be completely excluded. ASSESSMENT: 1. Severe COPD exacerbation. 2. Pulmonary infiltrate, right lower lobe, possible pneumonic process. 3. Chronic kidney disease, status post renal transplant, on immunosuppressant. 4. History of congestive heart failure, CVD, status post CABG. PLAN/RECOMMENDATION: 1. Continue nebulizer treatment every 6 hours as needed. 2. Continue Advair 500 mcg Diskus 1 puff b.i.d. 3. Spiriva inhaler 1 capsule once daily. 4. Continue Cellcept, prednsione, Plavix, as taking at home. 5. Continue Zosyn. Awaiting blood cultures and sputum culture results. DICTATING PHYSICIAN: LORENE BRADFORD MD,GLENN,MPH [id number] PHY#: [id number] ID: [id number] JOB#: [id number] ACCT: [id number] cc:LORENE BRADFORD M.D. > [id number] PHY#: [id number] ID: [id number] JOB#: [id number] ACCT: [id number] cc:LORENE BRADFORD M.D. > MTDD
[2017-11-06] MEDS ORDERED: APIXABAN 5 MG TABLET PO SCH ×2 (22:00)
[2017-11-06] MEDS ORDERED: MIDODRINE HCL 5 MG TABLET PO SCH (22:00)
[2017-11-06] MEDS ORDERED: FAMOTIDINE 20 MG TABLET PO SCH (22:00)
[2017-11-06] MEDS ORDERED: ATORVASTATIN CALCIUM 40 MG TABLET PO SCH (22:00)
[2017-11-06] MEDS ORDERED: TACROLIMUS ANHYDROUS 1 MG CAPSULE PO SCH (22:00)
[2017-11-06] MEDS ORDERED: BUDESONIDE/FORMOTEROL 160-4.5 MCG 60 PUFF/6 GM MDI IH SCH (22:00)
[2017-11-07] MEDS ORDERED: TIOTROPIUM BROMIDE DPI 5 CAP/KIT (18 MCG/CAP) IH SCH (10:00)
[2017-11-07] MEDS ORDERED: PREDNISONE 5 MG TABLET PO SCH (10:00)
[2017-11-07] MEDS ORDERED: DILTIAZEM HCL 120 MG CAP.SR.24H PO SCH (10:00)
[2017-11-07] MEDS ORDERED: DILTIAZEM HCL 120 MG PO SCH (10:00)
[2017-11-07] MEDS ORDERED: MAGNESIUM OXIDE 400 MG TABLET PO SCH (10:00)
--- NOTE | 2017-11-07 11:54 | DISCHARGE SUMMARY E ---
Discharge Summary NAME: PAOLO GOMEZ : 1945 AGE: 72Y ADMITTED: 11/05/2017 DISCHARGED: 11/06/2017 CODE STATUS: FULL CODE. PRIMARY CARE PROVIDER: Irma Owusu MD DISCHARGE DIAGNOSES: 1. MULTIFOCAL PNEUMONIA. 2. CHRONIC OBSTRUCTIVE PULMONARY DISEASE. 3. VCKXL-OX-CSWOOCY HYPOXIC RESPIRATORY FAILURE. 4. TRANSPLANT KIDNEY. 5. ANEMIA OF CHRONIC DISEASE, STABLE. 6. CHRONIC ATRIAL FIBRILLATION. 7. CHRONIC ANTICOAGULATION. 8. ESOPHAGEAL REFLUX DISEASE. 9. HISTORY OF PULMONARY EMBOLISM. 10. OPIATE DEPENDENCY, CONTINUOUS. 11. PERIPHERAL NEUROPATHY. 12. CORONARY ARTERY SCLEROSIS. 13. NOCARDIA INFECTION. 14. PULMONARY HYPERTENSION. DISCHARGE MEDICATIONS: Include: 1. Augmentin 875/125, one tablet p.o. b.i.d., 14 tablets with 0 refill. 2. Spiriva 1 capsule inhalation daily. 3. Prograf 1 mg p.o. every 12 hours. 4. Requip 2 mg p.o. at bedtime. 5. Requip 1 mg p.o. b.i.d. 6. Prednisone 5 mg daily. 7. Percocet 5/325 mg 1 tablet p.o. every 4 hours p.r.n. 8. Nitrostat 0.4 mg sublingual p.r.n. 9. Mycophenolic acid 360 mg p.o. every 8 hours. 10. Minocin 100 mg p.o. daily. 11. Midodrine 5 mg every 12 hours. 12. Magnesium oxide 400 mg p.o. daily. 13. Neurontin 300 mg p.o. b.i.d. 14. Neurontin 300 mg, 600 mg daily at 2 o'clock. 15. Pepcid 40 mg at bedtime. 16. Vitamin D2 50,000 IU p.o. as directed. 17. Colace 100 mg p.o. b.i.d. 18. Cardizem 120 mg p.o. daily. 19. Plavix 75 mg p.o. daily. 20. Zyrtec 2 mg p.o. daily. 21. Symbicort HFA one puff inhalation every 12 hours. 22. Eliquis 5 mg p.o. every 12 hours. 23. Ventolin 2.5 mg via nebulizer every 4 hours p.r.n. 24. ProAir HFA 1 puff inhalation every 4 hours p.r.n. DIET: As tolerated. ACTIVITIES: As tolerated. DIAGNOSTIC/LABORATORY VALUES: Hematology obtained 11/05/2017: WBC 6.6, hemoglobin 12.4, hematocrit 38.2, platelet count 280,000. Chemistries obtained on 11/05/2017: sodium 144, potassium 4.6, chloride 104, carbon dioxide 25, BUN 23, creatinine 1.09, glucose 157, lactic acid 2.4, calcium 9.1, bilirubin 0.5, AST 24, ALT 44, alkaline phosphatase 98. Troponin 0.016. BNP 1980. Total protein 3.2, albumin 3.4. Urinalysis obtained on 11/04/2017: Color yellow, appearance clear, pH 5.0, specific gravity 1.023, protein negative, glucose negative, ketones negative, occult blood negative, nitrites negative, bilirubin negative, urobilinogen negative, leukocyte esterase negative, WBC 0, RBC 0, epithelial squamous cells less than 1, mucous rare, ascorbic acid negative. Toxicology obtained on 11/05/2017: Tacrolimus is pending. Serology obtained on 11/05/2017: AFP is pending. Blood cultures read on 11/04/2017: Revealed no growth. Sputum cultures read on 11/05/2017: Revealed no growth. Urine culture obtained on 11/05/2017: Revealed no growth. AFP negative. Chest x-ray obtained 11/04/2017: Revealed no acute radiographic finding of the chest. Lung VQ scan obtained 11/04/2017: Revealed low probability of pulmonary emboli. Chest CT obtained on 11/04/2017: Revealed minimal interstitial changes to the right lung base, which could represent acute pneumonitis. Venous Doppler study obtained 11/05/2017: Revealed no duplex evidence of DVT or obstruction of the right lower extremity, nor in the common femoral vein. Unusual complex mass in the right popliteal fossa, further imaging to be considered. EKG obtained on 11/04/2017 revealed sinus rhythm. Echocardiogram obtained on 11/04/2017 revealed EF of 45-50%, moderate diastolic dysfunction. HISTORY OF PRESENT ILLNESS: The patient is a 72-year-old male with past medical history of transplant kidney, as well as Loretta granulomatosis. The patient presented to the emergency department with the chief complaint of shortness of breath. The patient is on chronic immunosuppression and chronic pain, presented the emergency department with significant shortness of breath, but not fevers or chills, but was productive of green sputum. The patient was on Levaquin for 34 days due to a previous Pseudomonal infection; however, the patient's last sputum culture did reveal Gram-negative elio consistent with E. coli. This was as well sensitive to Levaquin. The patient is followed outpatient by Dr. Saavedra, as well as Dr. Rae. The patient had increasing shortness of breath, which Pulmonary felt might be a cardiology issue. However, after the patient was evaluated at his fuel storage technician's office, he was sent to the emergency department for evaluation. The patient improved significantly on 2 liters of oxygen. The patient was referred to the hospitalist for admission and management. HOSPITAL COURSE: The patient was admitted to [facility]. The patient was placed on Zosyn and had significant improvement in his pneumonia symptoms. The patient was seen by his art class model, Dr. Saavedra and recommendations were noted. The patient was weaned from O2. The patient was able to cough up a significant amount of sputum with flutter valve. The patient was transitioned to Augmentin given his previous history of Gram-negative elio, possible E. coli in the sputum. However, the patient's sputum culture was negative, but given the patient's improvement with Zosyn it was recommended the patient to continue on Augmentin and to follow up with his art class model in a couple of weeks. The patient is in agreement with this plan. The patient did have a Doppler of his lower extremity that did have findings of an unusual mass that will require followup imaging. The patient is quite eager to leave the hospital and will follow this up on an outpatient basis. The patient does have a history of reflux, but denies it has given him any significant issues. This appears to be well controlled with an H2 receptor franki. Given the concern for previous E. coli on culture, I do recommend the patient have an outpatient swallow study versus evaluation for reflux. The patient is quite eager for discharge and has actually refused treatments and was dressed stating he was going to leave regardless today. The rest of the patient's workup can be done on an outpatient basis. The patient is hemodynamically stable. PHYSICAL EXAMINATION: GENERAL: The patient is a frail, chronically ill appearing 72-year-old male, who is awake, alert and oriented to person, place, time and situation. He is a verbal conversationalist, does appear in acute distress. VITAL SIGNS: As follows: Temperature 97.4, pulse 105, respirations 22, blood pressure 126/63, oxygen saturation 100% on room air. SKIN: Warm and dry. No rashes. No diaphoretic. HEENT: Pupils equal, round, reactive to light and accommodation. Conjunctivae was pink. No evidence of JVD. CARDIOVASCULAR SYSTEM: Heart is regular. There is no murmur or rub. CHEST: Clear, symmetrical, unlabored. ABDOMEN: Soft, nontender, nondistended. BACK: No CVA tenderness or sacral edema. EXTREMITIES: No clubbing, cyanosis, or edema. DISCHARGE PLAN: 1. The patient is to follow up with his art class model, Dr. Saavedra within 2-4 weeks for hospital followup. 2. The patient is to follow up with fuel storage technician as scheduled. 3. The patient is to follow up with his primary care provider, Dr. Owusu, within 1 week for hospital followup. The patient does need an additional followup for findings on the venous Doppler that was suggestive of an unusual complex mass in the right popliteal fossa. TIME SPENT: On this discharge including assessment, plan, physical examination, patient education, review of records is 30 minutes. DICTATING PHYSICIAN: BUFFY HAIR NP [id number] PHY#: [id number] ID: [id number] JOB#: [id number] ACCT: [id number] cc:Bimal SALINAS NP MILAGROS CAILING, M.D. >
== END 2017-11-06 15:12 | disposition home or self-care (01) | DRG 193 ==
LOC: ER 14:01 → EH 19:32 → INTOOBSV 19:32 → 3W 23:22 → OBSVTOIN 11-05 16:12
PROVIDERS: ADMIT Family Medicine; ATTEND Family Medicine
DX: J18.9 Pneumonia, unspecified organism (principal); J96.21 Acute and chronic respiratory failure with hypoxia; J44.0 Chronic obstructive pulmonary disease with (acute) lower respiratory infection; J44.1 Chronic obstructive pulmonary disease with (acute) exacerbation; M31.30 Wegener's granulomatosis without renal involvement; Z94.0 Kidney transplant status; I50.42 Chronic combined systolic (congestive) and diastolic (congestive) heart failure; I11.0 Hypertensive heart disease with heart failure; I48.2 Chronic atrial fibrillation; D63.8 Anemia in other chronic diseases classified elsewhere; K21.9 Gastro-esophageal reflux disease without esophagitis; G89.29 Other chronic pain; E78.5 Hyperlipidemia, unspecified; I25.10 Atherosclerotic heart disease of native coronary artery without angina pectoris; G62.9 Polyneuropathy, unspecified; I27.20 Pulmonary hypertension, unspecified; M19.90 Unspecified osteoarthritis, unspecified site; Z79.02 Long term (current) use of antithrombotics/antiplatelets; Z79.899 Other long term (current) drug therapy; Z86.711 Personal history of pulmonary embolism; Z95.1 Presence of aortocoronary bypass graft; Z85.828 Personal history of other malignant neoplasm of skin; Z95.5 Presence of coronary angioplasty implant and graft; Z87.891 Personal history of nicotine dependence; Z88.6 Allergy status to analgesic agent
CPT/HCPCS: 36415; 71045; 71250; 78582; 80053; 80197; 81001; 83605; 83880; 84484; 85025; 85027; 87015; 87040; 87070; 87077; 87086; 87101; 87116; 87186; 87205; 87206; 93005; 93010; 93306; 93971; 94640; 96374; 99285; A9540; A9567; J2543; J2920; J2930; J3490; J7507; J7517; J7620; Q9969

== ENCOUNTER → 2017-11-29 | Outpatient (CLI) | payer MEDICARE ==
--- NOTE | 2017-11-29 15:19 | RADIOLOGY REPORT (SQ) ---
EXAM DESCRIPTION: MRI RT LOWER EXTREMITY WITHOUT COMPLETED DATE/TIME: 11/29/2017 1:36 pm REASON FOR STUDY: LOCALIZED SWELLING MASS OR LUMP IN R THIGH R22.41 LOCALIZED SWELLING, MASS AND JUVENTINO MP, RIGHT LOWER LIMB COMPARISON: Venous Doppler 11/05/2017 TECHNIQUE: Right lower extremity images acquired and stored on PACS. Multiplanar images include fat sensitive sequences as T1, water sensitive sequences as FST2 or STIR, cartilage sensitive sequences as FSPD, and gradient echo sequences. LIMITATIONS: None. FINDINGS: In the right popliteal fossa, a 6 cm CC x 3.4 cm AP x 2.3 cm TR paredes cyst is present gerry g the medial head gastrocnemius muscle proximal tendon. Cyst is complex with septations. This corre lates with findings on venous Doppler 11/05/2017. Normal bone marrow signal. No findings worrisome for occult fracture. No soft tissue masses worrisome for tumor. Limited view of the knee in the field of view demonstrates that the ACL and PCL are intact. Medial a nd lateral collateral ligaments are intact. No gross meniscal tear. Moderate chondromalacia through out the medial compartment. IMPRESSION: Findings on right lower extremity venous Doppler 11/05/2017 correlate with a complex Bake r's cyst in the medial popliteal fossa with septations. TECHNICAL DOCUMENTATION: JOB ID: [id number] [employer]- All Rights Reserved
== END ==
LOC: RAD 11:40
PROVIDERS: ATTEND Physician Assistant
DX: R22.41 Localized swelling, mass and lump, right lower limb (principal); M71.21 Synovial cyst of popliteal space [Baker], right knee

== ENCOUNTER 2018-03-02 15:51 | Inpatient (IN) | payer MEDICARE ==
--- NOTE | 2018-03-02 16:06 | ER Document Report ---
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 He saw an urgent care 4 days ago and was started on antibiotics and steroids, but he is not feeling much better. He denies chest pain, hemoptysis, increased leg swelling, fevers, nausea, vomiting, back pain, syncope, headache, abdominal pain or urinary symptoms. TRAVEL OUTSIDE OF THE [place] IN LAST 30 DAYS: No - Related Data Allergies/Adverse Reactions: aspirin [Aspirin] Allergy (Verified 09/01/17 18:00) iron [Iron] Allergy (Verified 09/01/17 18:00) Past Medical History - General Information source: Patient - Social History Smoking Status: Former Smoker Family History: Reviewed & Not Pertinent, CAD, Hypertension - Past Medical History Cardiac Medical History: Reports: Hx Atrial Fibrillation, Hx Congestive Heart Failure, Hx Coronary Artery Disease, Hx Heart Attack - x2, Hx Hypercholesterolemia, Hx Pulmonary Embolism Denies: Hx Hypertension Pulmonary Medical History: Reports: Hx Asthma, Hx Bronchitis, Hx COPD, Hx Pneumonia, Hx Sleep Apnea Neurological Medical History: Denies: Hx Cerebrovascular Accident, Hx Seizures Endocrine Medical History: Denies: Hx Diabetes Mellitus Type 1, Hx Diabetes Mellitus Type 2 Renal/ Medical History: Reports: Hx End Stage Renal Disease - Patient was previously on hemodialysis prior to kidney transplant., Hx Hemodialysis - No longer on dialysis. Denies: Hx Peritoneal Dialysis Malignancy Medical History: Reports Hx Skin Cancer Musculoskeltal Medical History: Reports Hx Arthritis Psychiatric Medical History: Denies: Hx Depression Past Surgical History: Reports: Hx Cardiac Catheterization, Hx Cardiac Surgery - CABG, Hx Coronary Artery Bypass Graft - 3 vessels on 09/19/2008, Hx Coronary Stent - 10/15/1999, Hx Kidney (Renal Surgery) - Transplant, Hx Open Heart Surgery - x 3V - Immunizations Hx Diphtheria, Pertussis, Tetanus Vaccination: Yes Hx Pneumococcal Vaccination: 06/25/16 Review of Systems - Review of Systems Notes: REVIEW OF SYSTEMS: CONSTITUTIONAL: -fevers, -chills EENT: -eye pain, -difficulty swallowing, -nasal congestion CARDIOVASCULAR: -chest pain, -syncope. RESPIRATORY: +cough, +SOB GASTROINTESTINAL: -abdominal pain, -nausea, -vomiting, -diarrhea GENITOURINARY: -dysuria, -hematuria MUSCULOSKELETAL: -back pain, -neck pain SKIN: -rash or skin lesions. HEMATOLOGIC: -easy bruising or bleeding. LYMPHATIC: -swollen, enlarged glands. NEUROLOGICAL: -altered mental status or loss of consciousness, -headache, - neurologic symptoms PSYCHIATRIC: -anxiety, -depression. ALL OTHER SYSTEMS REVIEWED AND NEGATIVE. Physical Exam - Vital signs Vitals: Pulse Ox 100 03/02/18 15:52 - Notes Notes: PHYSICAL EXAMINATION: GENERAL: Mild respiratory distress. HEAD: Atraumatic, normocephalic. EYES: Pupils equal round and reactive to light, extraocular movements intact, sclera anicteric, conjunctiva are normal. ENT: nares patent, oropharynx clear without exudates. Moist mucous membranes. NECK: Normal range of motion, supple without lymphadenopathy LUNGS: Tachypnea, diffuse wheezing and rhonchi, crackles in RLL. HEART: Tachycardia, irregular rhythm. ABDOMEN: Soft, nontender, normoactive bowel sounds. No guarding, no rebound. No masses appreciated. EXTREMITIES: 2+ peripheral edema, normal range of motion, no pitting or edema. No cyanosis. NEUROLOGICAL: Cranial nerves grossly intact. Normal speech. Normal sensory and motor exams. PSYCH: Normal mood, normal affect. SKIN: Warm, Dry, normal turgor, no rashes or lesions noted. Course - Re-evaluation Re-evalutation: Patient arrives tachypneic with diffuse wheezing and rhonchi. He is already taking 60 mg prednisone, using his albuterol inhaler and antibiotics given to him by the urgent care, but he is still having increased shortness of breath. CTA ordered due to his tachycardia and tachypnea, but this did not show any evidence of a PE. It did show a right lower lobe infiltrate. Due to his tenuous respiratory status, failure of outpatient Abx treatment and multiple comorbidities, patient requires observation for further evaluation and treatment. His primary care physician is Dr. Gaurang Sapp. Broad-spectrum Abx started due to his immunocompromised state with his immunosuppression meds for his kidney transplant. 03/02/18 18:[address] North (Hospitalist) and she has admitted patient to [facility] for further evaluation and treatment. - Vital Signs Vital signs: Temp Pulse Resp BP Pulse Ox 98.1 F 26 H 143/67 H 100 03/02/18 16:19 03/02/18 18:01 03/02/18 18:01 03/02/18 18:01 - Laboratory Result Diagrams: 03/02/18 16:04 03/02/18 16:04 Laboratory results interpreted by me: 03/02/18 03/02/18 03/02/18 16:04 16:04 16:04 WBC 12.4 H RBC 3.93 L Hgb 11.5 L Hct 35.9 L RDW 15.9 H Seg Neutrophils % 85.2 H Lymphocytes % 6.2 L Absolute Neutrophils 10.6 H Potassium 5.1 H BUN 40 H Glucose 156 H Direct Bilirubin 0.6 H Creatine Kinase 197 H NT-Pro-B Natriuret Pep 3390 H Total Protein 6.1 L Albumin 3.2 L Urine Blood 03/02/18 16:54 WBC RBC Hgb Hct RDW Seg Neutrophils % Lymphocytes % Absolute Neutrophils Potassium BUN Glucose Direct Bilirubin Creatine Kinase NT-Pro-B Natriuret Pep Total Protein Albumin Urine Blood SMALL H - Diagnostic Test Radiology reviewed: Image reviewed, Reports reviewed Radiology results interpreted by me: CXR: Mild chronic lung changes with no acute pulmonary disease. Borderline cardiomegaly without failure. CTA Chest: No evidence for pulmonary embolic disease. Minimal patchy densities in the right lower lung feel most consistent with a patchy pneumonic infiltrate. There are some associated bronchiectatic changes in the right lung base. No consolidations or pleural effusions are identified. Emphysematous changes are identified. Other findings as noted above - EKG Interpretation by Me EKG shows normal: Sinus rhythm, Pryor Rate: Tachycardia When compared to previous EKG there are: No significant change Additional EKG results interpreted by me: QTc 486 Discharge - Discharge Clinical Impression: Acute exacerbation of chronic bronchitis, Tachypnea Condition: Stable Disposition: ADMITTED INPATIENT Admitting Provider: Hospitalist - [facility] Admitted: Telemetry Referrals: PORSCHE SAPP MD [Primary Care Provider] - Follow up as needed
[2018-03-02] MEDS ORDERED: IPRATROPIUM/ALBUTEROL 0.5-2.5 MG/3 ML AMPUL NEB ONE (16:13)
[2018-03-02 16:24] LABS: ABSOLUTE EOSINOPHILS # (AUTO) 0.1 10^3/uL (0.0-0.6); ABSOLUTE LYMPHOCYTES (AUTO) 0.8 10^3/uL (0.5-4.7); ABSOLUTE NEUT (AUTO) 10.6 10^3/uL (1.7-8.2); BASOPHILS % (AUTO) 0.3 % (0-2); EOSINOPHILS % (AUTO) 0.4 % (0-6); HEMATOCRIT 35.9 % (37.9-51.0); HEMOGLOBIN 11.5 g/dL (13.5-17.0); LYMPHOCYTES % (AUTO) 6.2 % (13-45); MEAN CORPUSCULAR HEMOGLOBIN 29.2 pg (27.0-33.4); MEAN CORPUSCULAR VOLUME 91 fl (80-97); MONOCYTES % (AUTO) 7.9 % (3-13); PLATELET COUNT 334 10^3/uL (150-450); RED BLOOD COUNT 3.93 10^6/uL (4.35-5.55); RED CELL DISTRIBUTION WIDTH 15.9 % (11.5-14.0); SEGMENTED NEUTROPHILS % (AUTO) 85.2 % (42-78); TOTAL CELLS COUNTED % (AUTO) 100 %; WHITE BLOOD COUNT 12.4 10^3/uL (4.0-10.5)
[2018-03-02 16:32] LABS: VENOUS BLOOD BASE EXCESS 3.9 mmol/L; VENOUS BLOOD PCO2 45.3 mmHg (35-63); VENOUS BLOOD PH 7.42 (7.30-7.42)
[2018-03-02 16:44] LABS: ALANINE AMINOTRANSFERASE 54 U/L (21-72); ALBUMIN 3.2 g/dL (3.5-5.0); ALKALINE PHOSPHATASE 113 U/L (38-126); ANION GAP 11 (5-19); ASPARTATE AMINO TRANSFERASE 42 U/L (17-59); BILIRUBIN,DIRECT 0.6 mg/dL (0.0-0.4); BILIRUBIN,TOTAL 0.6 mg/dL (0.2-1.3); BLOOD UREA NITROGEN 40 mg/dL (7-20); CARBON DIOXIDE 30 mmol/L (22-30); CHLORIDE 99 mmol/L (98-107); CREATINE KINASE 197 U/L (55-170); GLUCOSE 156 mg/dL (75-110); POTASSIUM 5.1 mmol/L (3.6-5.0); SODIUM 139.6 mmol/L (137-145); TOTAL PROTEIN 6.1 g/dL (6.3-8.2)
--- NOTE | 2018-03-02 16:58 | RADIOLOGY REPORT (SQ) ---
EXAM DESCRIPTION: CHEST SINGLE VIEW COMPLETED DATE/TIME: 03/02/2018 4:48 pm REASON FOR STUDY: SOB COMPARISON: 11/04/2017 EXAM PARAMETERS: NUMBER OF VIEWS: One view. TECHNIQUE: Single frontal radiographic view of the chest acquired. RADIATION DOSE: NA LIMITATIONS: None. FINDINGS: LUNGS AND PLEURA: Mild chronic interstitial changes. MEDIASTINUM AND HILAR STRUCTURES: No masses. Contour normal. HEART AND VASCULAR STRUCTURES: Heart size is borderline. No evidence of failure. BONES: No acute findings. HARDWARE: None in the chest. OTHER: No other significant finding. IMPRESSION: Mild chronic lung changes with no acute pulmonary disease. Borderline cardiomegaly with out failure. TECHNICAL DOCUMENTATION: JOB ID: [id number] [employer]- All Rights Reserved Reading location - IP/workstation name: [email or web address]
[2018-03-02 17:03] LABS: TROPONIN I 0.043 ng/mL
[2018-03-02 17:07] LABS: APPEARANCE,URINE CLEAR; BILIRUBIN,URINE NEGATIVE (NEGATIVE); COLOR,URINE YELLOW; GLUCOSE, URINE NEGATIVE (NEGATIVE); KETONES,URINE NEGATIVE (NEGATIVE); LEUKOCYTE ESTERASE,URINE NEGATIVE (NEGATIVE); NITRITE,URINE NEGATIVE (NEGATIVE); PROTEIN,URINE NEGATIVE (NEGATIVE); URINE SPECIFIC GRAVITY 1.017; UROBILINOGEN,URINE NEGATIVE mg/dL (<2.0)
--- NOTE | 2018-03-02 18:08 | RADIOLOGY REPORT (SQ) ---
EXAM DESCRIPTION: CTA CHEST COMPLETED DATE/TIME: 03/02/2018 5:48 pm REASON FOR STUDY: tachypnea, tachycardia, PE? COMPARISON: Non contrasted chest CT scan dated October 2017 TECHNIQUE: CT scan of the chest performed using helical scanning technique with dynamic intravenous contrast injection. Images reviewed with lung, soft tissue and bone windows. Reconstructed coronal and sagittal MPR images reviewed. Additional 3 dimensional post-processing performed to develop Maximal Intensity Projection images (MO P). All images stored on PACS. All CT scanners at this facility use dose modulation, iterative reconstruction, and/or weight based d osing when appropriate to reduce radiation dose to as low as reasonably achievable (ALARA). [facility]: Dose Right [facility]: CareDose [facility]: Dose Right [facility]: Teradose 4D [facility]: IronPearl CONTRAST TYPE AND DOSE: contrast/concentration: Isovue 370.00 mg/ml; Total Contrast Delivered: 69.0 ml; Total Saline Delivered: 109.0 ml Contrast bolus optimized for the pulmonary arteries. Not diagnostic for the aorta. RENAL FUNCTION: Not available RADIATION DOSE: CT Rad equipment meets quality standard of care and radiation dose reduction techniq ues were employed. CTDIvol: 14.8 - 16.5 mGy. DLP: 585 mGy-cm. . LIMITATIONS: None. FINDINGS: LUNGS AND PLEURA: There are minimal patchy densities in the right lower lung field most co nsistent with a patchy pneumonic infiltrate. There are some associated bronchiectatic changes in the right lung base. No consolidations or pleural effusions are identified. Emphysematous changes are identified. AORTA AND GREAT VESSELS: No aneurysm. Contrast bolus not optimized for the aorta. There is ectasia of the thoracic aorta with vascular calcifications. HEART: No pericardial effusion. No significant coronary artery calcifications. PULMONARY ARTERIES: No emboli visualized in the main pulmonary arteries or the segmental branches. HILAR AND MEDIASTINAL STRUCTURES: No identified masses or abnormal nodes. HARDWARE: Patient is status post median sternotomy with coronary bypass surgery UPPER ABDOMEN: Atrophic appearing kidneys are identified. Vascular calcifications are identified in the proximal renal arteries bilaterally. Vascular calcifications also identified at the origin of th e celiac axis and superior mesenteric artery. THYROID AND OTHER SOFT TISSUES: No masses. No adenopathy. BONES: No acute or significant finding. 3D MIPS: Confirm above findings. OTHER: No other significant finding. IMPRESSION: No evidence for pulmonary embolic disease. Minimal patchy densities in the right lower lung feel most consistent with a patchy pneumonic infiltrate. There are some associated bronchiectat ic changes in the right lung base. No consolidations or pleural effusions are identified. Emphysema tous changes are identified. Other findings as noted above COMMENT: Quality ID # [id number]: Final reports with documentation of one or more dose reduction techniques (e.g., Automated exposure control, adjustment of the mA and/or kV according to patient size, use of iterative reconstruction technique) TECHNICAL DOCUMENTATION: JOB ID: [id number] [employer]- All Rights Reserved Reading location - IP/workstation name: [email or web address]
[2018-03-02] MEDS ORDERED: VANCOMYCIN HCL INJ 1000 MG VIAL IV ONE (18:16)
[2018-03-02] MEDS ORDERED: PIPERACILLIN/TAZOBACTAM 3.375 GM VIAL IV ONE (18:16)
[2018-03-02] MEDS ORDERED: ZOLPIDEM TARTRATE 5 MG TABLET PO PRN (18:21)
[2018-03-02] MEDS ORDERED: ONDANSETRON HCL INJ/PF 4 MG/2 ML SDV IV PRN (18:21)
[2018-03-02] MEDS ORDERED: ACETAMINOPHEN 325 MG TABLET PO PRN (18:21)
--- NOTE | 2018-03-02 18:24 | EKG REPORT ---
SEVERITY:- ABNORMAL ECG - SINUS TACHYCARDIA WITH PACS [id number] ABNRM R PROG, CONSIDER ASMI OR LEAD PLACEMENT BORDERLINE PROLONGED QT INTERVAL : Confirmed by: Jorgito Street MD 02-Mar-2018 18:22:44
[2018-03-02] MEDS ORDERED: ALBUTEROL SULFATE 0.083% NEB 2.5 MG/3 ML AMPUL NEB PRN (18:27)
[2018-03-02] MEDS ORDERED: FUROSEMIDE INJ/PF 20 MG/2 ML SDV IV SCH (18:30)
[2018-03-02] MEDS ORDERED: DEXTROSE 50%-WATER 25 GM/50 ML DISP.SYRIN IV PRN ×2 (18:44)
[2018-03-02] MEDS ORDERED: GLUCAGON,HUMAN RECOMB 1 MG INJ IM PRN (18:44)
[2018-03-02] MEDS ORDERED: DEXTROSE 40% GEL 15 GM TUBE PO PRN ×2 (18:44)
--- NOTE | 2018-03-02 19:07 | PDOC H&P ---
History of Present Illness Admission Date/PCP: PORSCHE SAPP MD Patient complains of: Shortness of breath for about 2 weeks worse today History of Present Illness: JOSE GOMEZ JR is a 73 year old male presented to ED accompanied by several members of his family complaining of progressive shortness of breath for the past 2 weeks. He had been seen at a local urgent care recently when he was given a course of doxycycline with no further improvement. Patient does use 2 L of O2 on a regular basis however had been going up to 3. Patient also complains of swelling of his legs. He is supposed to be on diuretics which he takes off and on. Patient denies having any fever or chills. 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 It has been suggested to him that he may need a lung biopsy to determine if he does have active Loretta's in his lungs. Accordingly his kidneys have been doing better since he got a kidney transplant and the donor was his daughter. Patient admits as to having a history of heart attacks 2 and heart surgery previously. 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 He was advised as not to be exposed to sun but he did not follow up with advice. Recently he had a cancer removed from his upper chest. Patient was evaluated through a CTA of the chest with her concern of pneumonia in the right side of his chest. Our service was consulted and prompted to admit for the management of primarily what is deemed to be acute exacerbation of COPD with bronchitis, pulmonary hypertension and acute on chronic congestive heart failure Past Medical History Cardiac Medical History: Reports: Atrial Fibrillation, Congestive Heart Failure , Coronary Artery Disease, Myocardial Infarction - x2, Hyperlipidema, Pulmonary Embolism Denies: Hypertension Pulmonary Medical History: Reports: Asthma, Bronchitis, Chronic Obstructive Pulmonary Disease (COPD), Pneumonia, Sleep Apnea EENT Medical History: Reports: None Neurological Medical History: Reports: None Denies: Seizures Endocrine Medical History: Denies: Diabetes Mellitus Type 1, Diabetes Mellitus Type 2 Renal/ Medical History: Reports: None, Chronic Kidney Disease Malignancy Medical History: Reports: None, Skin Cancer GI Medical History: Reports: None Musculoskeltal Medical History: Reports: Arthritis Psychiatric Medical History: Denies: Depression Traumatic Medical History: Reports: None Hematology: Denies: Anemia Infectious Medical History: Reports: None Past Surgical History Past Surgical History: Reports: Cardiac Catheterization, Coronary Artery Bypass Graft - 3 vessels on 09/19/2008, Coronary Stent - 10/15/1999, Other - Kidney transplant Social History Information Source: Patient Smoking Status: Former Smoker Frequency of Alcohol Use: None Hx Recreational Drug Use: No Hx Prescription Drug Abuse: No Family History Family History: CAD, Hypertension Parental Family History Reviewed: Yes Children Family History Reviewed: Yes Sibling(s) Family History Reviewed.: Yes Medication/Allergy Home Medications: Albuterol Sulfate [Proair Respiclick] 90 mcg IH PRN PRN 03/02/18 Albuterol Sulfate [Proventil Hfa] 6.7 gm IH PRN PRN 03/02/18 Apixaban [Eliquis 5 mg Tablet] 5 mg PO BID 03/02/18 Atorvastatin Calcium 40 mg PO DAILY 03/02/18 Budesonide/Formoterol Fumarate [Symbicort 160-4.5 Mcg Inhaler] 10.2 gm IH BID Cetirizine HCl [All Day Allergy] 10 mg PO DAILY 03/02/18 Clopidogrel Bisulfate [Clopidogrel] 75 mg PO DAILY 03/02/18 Diltiazem HCl 120 mg PO DAILY 03/02/18 Docusate Sodium 100 mg PO DAILY 03/02/18 Ergocalciferol (Vitamin D2) [Vitamin D2] 50,000 unit PO DAILY 03/02/18 Gabapentin 300 mg PO QID 03/02/18 Magnesium Oxide [Magnesium] 400 mg PO DAILY 03/02/18 Midodrine HCl [Proamatine 5 Mg Tablet] 5 mg PO DAILY 03/02/18 Minocycline HCl 100 mg PO DAILY 03/02/18 Mycophenolate Sodium [Mycophenolic Acid] 360 mg PO TID 03/02/18 Oxycodone HCl/Acetaminophen [Oxycodone-Acetaminophen 5-325] 1 each PO PRN PRN Prednisone 5 mg PO DAILY 03/02/18 Promethazine HCl 25 mg PO PRN PRN 03/02/18 Ropinirole HCl 1 mg PO BID 03/02/18 Tacrolimus [Prograf] 1 mg PO BID 03/02/18 Tiotropium [place] [Spiriva] 18 mcg IH DAILY 03/02/18 Allergies/Adverse Reactions: aspirin [Aspirin] Allergy (Verified 09/01/17 18:00) iron [Iron] Allergy (Verified 09/01/17 18:00) Review of Systems Constitutional: PRESENT: fatigue. ABSENT: chills, night sweats Eyes: ABSENT: visual disturbances Ears: ABSENT: hearing changes Nose, Mouth, and Throat: ABSENT: mouth pain, sore throat Cardiovascular: PRESENT: edema. ABSENT: chest pain, palpitations Respiratory: PRESENT: cough, dyspnea, sputum Gastrointestinal: PRESENT: abdominal pain. ABSENT: nausea, vomiting Genitourinary: ABSENT: dysuria Musculoskeletal: ABSENT: deformity, joint swelling Neurological: PRESENT: abnormal gait Endocrine: PRESENT: polydipsia, polyphagia, polyuria Physical Exam Vital Signs: Temp Pulse Resp BP Pulse Ox 98.1 F 26 H 143/67 H 100 03/02/18 16:19 03/02/18 18:01 03/02/18 18:01 03/02/18 18:01 Intake & Output 03/01/18 03/02/18 03/03/18 06:59 06:59 06:59 Weight 75 kg General appearance: PRESENT: no acute distress, cooperative, other - Chronically ill looking Head exam: PRESENT: atraumatic, normocephalic Eye exam: PRESENT: conjunctiva pink, EOMI, PERRLA Ear exam: PRESENT: normal external ear exam, TM's normal bilaterally Mouth exam: PRESENT: moist Neck exam: PRESENT: full ROM. ABSENT: JVD, lymphadenopathy, tenderness, thyromegaly Respiratory exam: PRESENT: crackles, decreased breath sounds Cardiovascular exam: PRESENT: irregular rhythm. ABSENT: diastolic murmur, systolic murmur Vascular exam: PRESENT: normal capillary refill GI/Abdominal exam: PRESENT: normal bowel sounds, soft. ABSENT: tenderness Extremities exam: PRESENT: full ROM, other Musculoskeletal exam: PRESENT: ambulatory Neurological exam: PRESENT: alert, awake, oriented to person, oriented to place , oriented to time, oriented to situation, CN II-XII grossly intact Psychiatric exam: PRESENT: appropriate affect, normal mood Skin exam: PRESENT: dry, other - Purplish discoloration of extremities. Results Laboratory Results: 03/02/18 16:04 03/02/18 16:04 03/02/18 03/02/18 03/02/18 16:04 16:04 16:04 WBC 12.4 H RBC 3.93 L Hgb 11.5 L Hct 35.9 L MCV 91 MCH 29.2 MCHC 32.0 RDW 15.9 H Plt Count 334 Seg Neutrophils % 85.2 H Lymphocytes % 6.2 L Monocytes % 7.9 Eosinophils % 0.4 Basophils % 0.3 Absolute Neutrophils 10.6 H Absolute Lymphocytes 0.8 Absolute Monocytes 1.0 Absolute Eosinophils 0.1 Absolute Basophils 0.0 VBG pH VBG pCO2 VBG HCO3 VBG Base Excess Sodium 139.6 Potassium 5.1 H Chloride 99 Carbon Dioxide 30 Anion Gap 11 BUN 40 H Creatinine 1.07 Est GFR ( Amer) > 60 Est GFR (Non-Af Amer) > 60 Glucose 156 H Lactic Acid 1.2 Calcium 9.0 Total Bilirubin 0.6 AST 42 ALT 54 Alkaline Phosphatase 113 Total Protein 6.1 L Albumin 3.2 L Urine Color Urine Appearance Urine pH Ur Specific [place] Urine Protein Urine Glucose (UA) Urine Ketones Urine Blood Urine Nitrite Ur Leukocyte Esterase Urine WBC (Auto) Urine RBC (Auto) 03/02/18 03/02/18 16:04 16:54 WBC RBC Hgb Hct MCV MCH MCHC RDW Plt Count Seg Neutrophils % Lymphocytes % Monocytes % Eosinophils % Basophils % Absolute Neutrophils Absolute Lymphocytes Absolute Monocytes Absolute Eosinophils Absolute Basophils VBG pH 7.42 VBG pCO2 45.3 VBG HCO3 29.0 VBG Base Excess 3.9 Sodium Potassium Chloride Carbon Dioxide Anion Gap BUN Creatinine Est GFR ( Amer) Est GFR (Non-Af Amer) Glucose Lactic Acid Calcium Total Bilirubin AST ALT Alkaline Phosphatase Total Protein Albumin Urine Color YELLOW Urine Appearance CLEAR Urine pH 5.0 Ur Specific [place] 1.017 Urine Protein NEGATIVE Urine Glucose (UA) NEGATIVE Urine Ketones NEGATIVE Urine Blood SMALL H Urine Nitrite NEGATIVE Ur Leukocyte Esterase NEGATIVE Urine WBC (Auto) 2 Urine RBC (Auto) 0 03/02/18 03/02/18 16:04 16:04 Creatine Kinase 197 H Troponin I 0.043 NT-Pro-B Natriuret Pep 3390 H Impressions: Chest X-Ray 03/02/18 16:04 IMPRESSION: Mild chronic lung changes with no acute pulmonary disease. Borderline cardiomegaly without failure. Chest/Abdomen CTA 03/02/18 17:12 IMPRESSION: No evidence for pulmonary embolic disease. Minimal patchy densities in the right lower lung feel most consistent with a patchy pneumonic infiltrate. There are some associated bronchiectatic changes in the right lung base. No consolidations or pleural effusions are identified. Emphysematous changes are identified. Other findings as noted above Assessment & Plan - Diagnosis (1) COPD (chronic obstructive pulmonary disease) with acute bronchitis Is this a current diagnosis for this admission?: Yes Plan: Patient will be placed on DuoNeb scheduled, albuterol as needed, diuresis, IV steroids, Mucomyst, Mucinex and Meropenem. Patient stated that his physician had told him that he is immune to Levaquin (2) Pulmonary hypertension Is this a current diagnosis for this admission?: Yes Plan: Patient does have a diastolic component contributing to pulmonary hypertension however he does have advanced COPD therefore multifactorial. To diuresis (3) CHF (congestive heart failure) Qualifiers: Heart failure type: combined systolic and diastolic Heart failure chronicity: acute on chronic Qualified Code(s): I50.43 - Acute on chronic combined systolic (congestive) and diastolic (congestive) heart failure Is this a current diagnosis for this admission?: Yes Plan: Will place patient on Lasix IV. (4) History of Loretta's granulomatosis Is this a current diagnosis for this admission?: Yes Plan: Recommend for patient to follow-up with Dr. Cori cox as outpatient to evaluate if any pulmonary involvement at the present time (5) Immunosuppressed status Is this a current diagnosis for this admission?: Yes Plan: Patient is on immunosuppressive therapy on mycophenolate secondary to kidney transplant (6) HTN (hypertension) Is this a current diagnosis for this admission?: Yes Plan: Anticipate to continue outpatient regimen once available (7) Anemia Qualifiers: Anemia type: unspecified type Qualified Code(s): D64.9 - Anemia, unspecified Is this a current diagnosis for this admission?: Yes Plan: Likely due to chronic disease. Will order anemia panel (8) Hyperkalemia Is this a current diagnosis for this admission?: Yes Plan: Patient will be placed DuoNeb's and hopefully will improve. To trend (9) Acute and chronic respiratory failure Qualifiers: Respiratory failure complication: hypoxia Qualified Code(s): J96.21 - Acute and chronic respiratory failure with hypoxia Is this a current diagnosis for this admission?: Yes Plan: Continue oxygen supplementation and will wean off as tolerated (10) Atrial fibrillation Qualifiers: Atrial fibrillation type: permanent Qualified Code(s): I48.2 - Chronic atrial fibrillation Is this a current diagnosis for this admission?: Yes Plan: Will continue with outpatient regimen - Time Time Spent: 30 to 50 Minutes Medications reviewed and adjusted accordingly: Yes Anticipated discharge: Home Within: within 72 hours - Inpatient Certification Based on my medical assessment, after consideration of the patient's comorbidities, presenting symptoms, or acuity I expect that the services needed warrant INPATIENT care.: Yes I certify that my determination is in accordance with my understanding of Medicare's requirements for reasonable and necessary INPATIENT services [42 CFR 412.3e].: Yes Medical Necessity: Significant Comorbidiites Make Outpatient Treatment Too Risky , Need Close Monitoring Due to Risk of Patient Decompensation, Need For Continuous Telemetry Monitoring, Need for Nebulizer Therapy and Monitoring of Response
[2018-03-02] MEDS: INSULIN LISPRO 100 UNIT/ML 3 ML VIAL SUBCUT PRN ×2 (19:12→22:41)
[2018-03-02] MEDS ORDERED: LEVOFLOXACIN 750 MG TABLET PO ONE (19:30)
[2018-03-02] MEDS ORDERED: FUROSEMIDE INJ/PF 40 MG/4 ML SDV IV ONE (19:30)
[2018-03-02] MEDS: IPRATROPIUM/ALBUTEROL 0.5-2.5 MG/3 ML AMPUL NEB SCH (20:49)
[2018-03-02] MEDS: ACETYLCYSTEINE 20% SOLN 800 MG/4 ML VIAL.NEB NEB SCH (21:20)
[2018-03-02] MEDS: MEROPENEM 500 MG in NORMAL SALINE 50 ML IV SCH (22:00)
[2018-03-02] MEDS ORDERED: HEPARIN SOD (PORCINE) 5,000 UNIT/ML 1 ML SYRINGE SUBCUT SCH (22:00)
[2018-03-02] MEDS ORDERED: GABAPENTIN 300 MG CAPSULE PO SCH (22:00)
[2018-03-02] MEDS: GUAIFENESIN 600 MG TABLET.SA PO SCH (22:41)
[2018-03-02] MEDS: METHYLPREDNISOLONE INJ 40 MG/1 ML SDV IV SCH (22:41)
[2018-03-02] MEDS ORDERED: MEROPENEM 500 MG VIAL ONE (22:44)
[2018-03-02] MEDS ORDERED: TACROLIMUS ANHYDROUS 1 MG CAPSULE PO ONE (23:00)
[2018-03-02] MEDS: GABAPENTIN 300 MG CAPSULE PO SCH (23:14)
[2018-03-02] MEDS ORDERED: ROPINIROLE HCL 1 MG TABLET PO ONE (23:30)
[2018-03-02] MEDS ORDERED: MYCOPHENOLATE MOFETIL 250 MG CAPSULE ONE (23:45)
[2018-03-02] MEDS ORDERED: MYCOPHENOLATE MOFETIL 250 MG CAPSULE PO ONE (23:55)
[2018-03-02] MEDS: OXYCODONE-ACETAMINOPHEN 5-325 MG TABLET PO PRN (23:56)
[2018-03-03 05:38] LABS: ANION GAP 9 (5-19); BLOOD UREA NITROGEN 47 mg/dL (7-20); CALCIUM 9.1 mg/dL (8.4-10.2); CARBON DIOXIDE 34 mmol/L (22-30); CHLORIDE 96 mmol/L (98-107); GLUCOSE 166 mg/dL (75-110); SODIUM 139.2 mmol/L (137-145)
[2018-03-03] MEDS: METHYLPREDNISOLONE INJ 40 MG/1 ML SDV IV SCH ×3 (05:55→21:43)
[2018-03-03] MEDS: GABAPENTIN 300 MG CAPSULE PO SCH ×3 (05:55→17:22)
[2018-03-03] MEDS ORDERED: FUROSEMIDE INJ/PF 40 MG/4 ML SDV IV SCH (06:00)
[2018-03-03] MEDS: MEROPENEM 500 MG in NORMAL SALINE 50 ML IV SCH ×3 (06:00→21:51)
[2018-03-03 06:44] LABS: FOLATE 9.99 ng/mL (>2.76)
[2018-03-03 06:49] LABS: IRON(TIBC) 25.4 ug/dL (49-181)
[2018-03-03 07:48] LABS: ABSOLUTE RETICS # 0.064 10^6/uL (0.028-0.122); HEMOGLOBIN 11.6 g/dL (13.5-17.0); MEAN CORPUSCULAR HEMOGLOBIN 29.2 pg (27.0-33.4); MEAN CORPUSCULAR HGB CONC 32.1 g/dL (32.0-36.0); MEAN CORPUSCULAR VOLUME 91 fl (80-97); PLATELET COUNT 302 10^3/uL (150-450); RED BLOOD COUNT 3.96 10^6/uL (4.35-5.55); RED CELL DISTRIBUTION WIDTH 15.7 % (11.5-14.0); RETICULOCYTE COUNT (AUTO) 1.62 % (0.66-2.85); WHITE BLOOD COUNT 6.6 10^3/uL (4.0-10.5)
[2018-03-03 07:49] LABS: BASOPHILS % (MANUAL) 0 % (0-2); EOSINOPHILS % (MANUAL) 0 % (0-6); TOTAL CELLS COUNTED 100
[2018-03-03 07:50] LABS: ABSOLUTE LYMPHOCYTES# (MANUAL) 0.1 10^3/uL (0.5-4.7); ABSOLUTE MONOCYTES # (MANUAL) 0.1 10^3/uL (0.1-1.4); ABSOLUTE NEUTROPHILS# (MANUAL) 6.3 10^3/uL (1.7-8.2); ANISOCYTOSIS SLIGHT; HYPOCHROMASIA 1+; LYMPHOCYTES % (MANUAL) 2 % (13-45); MONOCYTES % (MANUAL) 2 % (3-13); POLYCHROMASIA SLIGHT; ROULEAUX SLIGHT; SEGMENTED NEUTROPHILS % (MAN) 96 % (42-78)
[2018-03-03 07:51] LABS: PLATELET COMMENT ADEQUATE
[2018-03-03] MEDS: INSULIN LISPRO 100 UNIT/ML 3 ML VIAL SUBCUT PRN ×3 (08:34→21:43)
[2018-03-03] MEDS: IPRATROPIUM/ALBUTEROL 0.5-2.5 MG/3 ML AMPUL NEB SCH ×3 (08:34→20:32)
[2018-03-03] MEDS: ACETYLCYSTEINE 20% SOLN 800 MG/4 ML VIAL.NEB NEB SCH (08:34)
[2018-03-03] MEDS: TACROLIMUS ANHYDROUS 1 MG CAPSULE PO SCH ×2 (09:34→21:44)
[2018-03-03] MEDS: ROFLUMILAST 500 MCG TABLET PO SCH (09:35)
[2018-03-03] MEDS: CLOPIDOGREL BISULFATE 75 MG TABLET PO SCH (09:35)
[2018-03-03] MEDS: GUAIFENESIN 600 MG TABLET.SA PO SCH ×2 (09:35→21:43)
[2018-03-03] MEDS: ROPINIROLE HCL 1 MG TABLET PO SCH ×2 (09:37→21:43)
[2018-03-03] MEDS: MIDODRINE HCL 5 MG TABLET PO SCH (09:37)
[2018-03-03] MEDS: CETIRIZINE 10 MG TABLET PO SCH (09:38)
[2018-03-03] MEDS: DILTIAZEM HCL 60 MG TABLET PO SCH (09:38)
[2018-03-03] MEDS ORDERED: DOCUSATE SODIUM 100 MG CAPSULE PO SCH (10:00)
[2018-03-03] MEDS ORDERED: (PENDING PHARMACY ID) (Diltiazem Hcl [Diltiazem Hcl] 120 MG) PO SCH (10:00)
[2018-03-03] MEDS: APIXABAN 5 MG TABLET PO SCH ×2 (10:47→17:21)
[2018-03-03] MEDS ORDERED: LANSOPRAZOLE 15 MG TAB.RAP.DR PO ONE (11:30)
[2018-03-03] MEDS ORDERED: (PENDING PHARMACY ID) (Magnesium Oxide [Magnesium] 400 MG) PO SCH (13:00)
[2018-03-03] MEDS ORDERED: ONDANSETRON HCL INJ/PF 4 MG/2 ML SDV IV PRN (13:30)
[2018-03-03] MEDS: MYCOPHENOLIC ACID 360 MG PO SCH ×2 (14:53→21:44)
[2018-03-03] MEDS: MAGNESIUM SULFATE/D5W 1 GM/100 ML RTUPB IV SCH ×2 (16:07→17:21)
[2018-03-03] MEDS: OXYCODONE-ACETAMINOPHEN 5-325 MG TABLET PO PRN ×2 (16:12→21:43)
[2018-03-03] MEDS: FUROSEMIDE INJ/PF 20 MG/2 ML SDV IV SCH (17:21)
[2018-03-03] MEDS: DOCUSATE SODIUM 100 MG CAPSULE PO SCH (17:22)
[2018-03-03] MEDS ORDERED: LEVOFLOXACIN 750 MG TABLET PO SCH (18:00)
[2018-03-03] MEDS ORDERED: DOCUSATE SODIUM 100 MG PO SCH (18:00)
--- NOTE | 2018-03-03 18:16 | PDOC PROGRESS REPORT ---
Subjective Progress Note for:: 03/03/18 Subjective:: 73 yr old male with history of Loretta's granulomatosis with kidney involvement status post kidney transplant. Chronic hypoxic respiratory failure due to COPD on 2 L oxygen at home Systolic and diastolic CHF Asthma Hypertension Obstructive sleep apnea not compliant with CPAP Hyperlipidemia Coronary artery disease status post AR 2 Pulmonary embolism Skin cancer recent resection from upper chest Pulmonary hypertension Atrial fibrillation He presented to the emergency room with a two-week history of progressively worsening shortness of breath and lower extremity edema. He admits to noncompliance with his CPAP as well as Lasix dosage. He suffers from discoloration of his arms and legs after sun exposure during treatment for nocardia. He was recently seen at a local urgent care and was given a course of doxycycline with no improvement. The patient was diagnosed with acute bronchitis and COPD exacerbation as well as combined systolic and diastolic congestive heart failure exacerbation. Reason For Visit: ACUTE ON CHRONIC CHF Physical Exam Vital Signs: Temp Pulse Resp BP Pulse Ox 97.7 F 115 H 16 121/54 L 97 03/03/18 12:00 03/03/18 14:00 03/03/18 13:50 03/03/18 12:00 03/03/18 13:50 Intake & Output 03/02/18 03/03/18 03/04/18 06:59 06:59 06:59 Intake Total 480 742 Output Total 1200 2050 Balance -720 -1308 Weight 72.7 kg General appearance: PRESENT: no acute distress Head exam: PRESENT: normocephalic Ear exam: PRESENT: normal external ear exam Mouth exam: PRESENT: moist Neck exam: ABSENT: tracheal deviation Respiratory exam: PRESENT: crackles, symmetrical Cardiovascular exam: PRESENT: irregular rhythm GI/Abdominal exam: PRESENT: normal bowel sounds, soft Rectal exam: PRESENT: deferred Extremities exam: PRESENT: pedal edema Neurological exam: PRESENT: alert, awake, oriented to person, oriented to place , oriented to time Psychiatric exam: PRESENT: appropriate affect Results Laboratory Results: 03/03/18 04:45 03/03/18 04:45 03/03/18 03/03/18 04:45 04:45 WBC 6.6 RBC 3.96 L Hgb 11.6 L Hct 36.0 L MCV 91 MCH 29.2 MCHC 32.1 RDW 15.7 H Plt Count 302 Seg Neutrophils % Not Reportable Lymphocytes % Not Reportable Monocytes % Not Reportable Eosinophils % Not Reportable Basophils % Not Reportable Absolute Neutrophils Not Reportable Absolute Lymphocytes Not Reportable Absolute Monocytes Not Reportable Absolute Eosinophils Not Reportable Absolute Basophils Not Reportable Retic Count (auto) 1.62 Absolute Retic 0.064 Sodium 139.2 Potassium 5.0 Chloride 96 L Carbon Dioxide 34 H Anion Gap 9 BUN 47 H Creatinine 1.42 H Est GFR ( Amer) 59 L Est GFR (Non-Af Amer) 49 L Glucose 166 H Calcium 9.1 Magnesium 1.7 Iron 25.4 L TIBC 274 % Saturation 9 Ferritin 60.10 Vitamin B12 368.0 Folate 9.99 03/02/18 03/03/18 22:30 04:45 Troponin I 0.042 0.047 Impressions: Chest X-Ray 03/02/18 16:04 IMPRESSION: Mild chronic lung changes with no acute pulmonary disease. Borderline cardiomegaly without failure. Chest/Abdomen CTA 03/02/18 17:12 IMPRESSION: No evidence for pulmonary embolic disease. Minimal patchy densities in the right lower lung feel most consistent with a patchy pneumonic infiltrate. There are some associated bronchiectatic changes in the right lung base. No consolidations or pleural effusions are identified. Emphysematous changes are identified. Other findings as noted above Assessment & Plan - Diagnosis (1) Acute exacerbation of chronic obstructive pulmonary disease (COPD) Is this a current diagnosis for this admission?: Yes Plan: IV steroids, Mucinex, antibiotics, inhalers, duo nebs (2) Acute on chronic combined systolic and diastolic CHF (congestive heart failure) Is this a current diagnosis for this admission?: Yes Plan: Continue IV Lasix. Monitor intake and output. Monitor kidney function. (3) Atrial fibrillation Qualifiers: Atrial fibrillation type: permanent Qualified Code(s): I48.2 - Chronic atrial fibrillation Is this a current diagnosis for this admission?: Yes (4) HTN (hypertension) Is this a current diagnosis for this admission?: Yes Plan: Stable. Continue outpatient medications. (5) History of Loretta's granulomatosis Is this a current diagnosis for this admission?: Yes (6) Anemia of chronic disease Is this a current diagnosis for this admission?: Yes (7) Chronic respiratory failure Is this a current diagnosis for this admission?: Yes Plan: COPD. (8) Esophageal reflux disease Qualifiers: Esophagitis presence: esophagitis presence not specified Qualified Code(s) : K21.9 - Gastro-esophageal reflux disease without esophagitis Is this a current diagnosis for this admission?: Yes Plan: Lansoprazole. (9) History of pulmonary embolism Is this a current diagnosis for this admission?: Yes Plan: On anticoagulation. (10) Opiate dependence, continuous Is this a current diagnosis for this admission?: Yes Plan: Continue Percocet as needed. (11) Coronary atherosclerosis Qualifiers: Coronary Disease-Associated Artery/Lesion type: [place] artery [place] vs. transplanted heart: [place] heart Associated angina: without angina Qualified Code(s): I25.10 - Atherosclerotic heart disease of [place] coronary artery without angina pectoris Is this a current diagnosis for this admission?: Yes Plan: Continue outpatient medications. (12) Pulmonary hypertension Is this a current diagnosis for this admission?: Yes Plan: Continue current management. CPAP use encouraged for his obstructive sleep apnea. (13) Transplanted kidney Is this a current diagnosis for this admission?: Yes Plan: Continue outpatient medications. - Time Time Spent with patient: 35 or more minutes
[2018-03-03] MEDS: BUDESONIDE/FORMOTEROL 160-4.5 MCG 60 PUFF/6 GM MDI IH SCH (21:44)
[2018-03-04] MEDS: GABAPENTIN 300 MG CAPSULE PO SCH ×5 (00:14→23:07)
[2018-03-04] MEDS: OXYCODONE-ACETAMINOPHEN 5-325 MG TABLET PO PRN ×2 (03:42→18:13)
[2018-03-04] MEDS: METHYLPREDNISOLONE INJ 40 MG/1 ML SDV IV SCH ×3 (05:32→21:25)
[2018-03-04] MEDS: MEROPENEM 500 MG in NORMAL SALINE 50 ML IV SCH (05:32)
[2018-03-04] MEDS: LANSOPRAZOLE 15 MG TAB.RAP.DR PO SCH (05:32)
[2018-03-04] MEDS: FUROSEMIDE INJ/PF 20 MG/2 ML SDV IV SCH ×2 (05:32→18:09)
[2018-03-04] MEDS: MYCOPHENOLIC ACID 360 MG PO SCH ×3 (05:32→21:21)
[2018-03-04 07:14] LABS: ANION GAP 15 (5-19); BLOOD UREA NITROGEN 51 mg/dL (7-20); CARBON DIOXIDE 26 mmol/L (22-30); CHLORIDE 104 mmol/L (98-107); GLUCOSE 135 mg/dL (75-110); POTASSIUM 3.2 mmol/L (3.6-5.0); SODIUM 144.6 mmol/L (137-145)
[2018-03-04 07:17] LABS: HEMATOCRIT 29.2 % (37.9-51.0); HEMOGLOBIN 9.7 g/dL (13.5-17.0); MEAN CORPUSCULAR HGB CONC 33.1 g/dL (32.0-36.0); MEAN CORPUSCULAR VOLUME 91 fl (80-97); PLATELET COUNT 246 10^3/uL (150-450); RED BLOOD COUNT 3.22 10^6/uL (4.35-5.55); RED CELL DISTRIBUTION WIDTH 15.8 % (11.5-14.0); WHITE BLOOD COUNT 9.8 10^3/uL (4.0-10.5)
[2018-03-04 08:00] LABS: ABSOLUTE LYMPHOCYTES# (MANUAL) 0.4 10^3/uL (0.5-4.7); ABSOLUTE MONOCYTES # (MANUAL) 0.1 10^3/uL (0.1-1.4); ABSOLUTE NEUTROPHILS# (MANUAL) 9.3 10^3/uL (1.7-8.2); BASOPHILS % (MANUAL) 0 % (0-2); EOSINOPHILS % (MANUAL) 0 % (0-6); LYMPHOCYTES % (MANUAL) 4 % (13-45); MONOCYTES % (MANUAL) 1 % (3-13); SEGMENTED NEUTROPHILS % (MAN) 95 % (42-78); TOTAL CELLS COUNTED 100
[2018-03-04 08:04] LABS: ANISOCYTOSIS SLIGHT; OVALOCYTES SLIGHT; PLATELET COMMENT ADEQUATE; POIKILOCYTOSIS SLIGHT; TOXIC GRANULATION SLIGHT
[2018-03-04] MEDS: IPRATROPIUM/ALBUTEROL 0.5-2.5 MG/3 ML AMPUL NEB SCH ×3 (08:33→19:44)
[2018-03-04] MEDS: MAGNESIUM SULFATE/D5W 1 GM/100 ML RTUPB IV SCH ×2 (08:55→10:38)
[2018-03-04] MEDS ORDERED: CALCIUM GLUCONATE 1000 MG/10 ML INJ IV ONE (09:00)
[2018-03-04] MEDS: DILTIAZEM HCL 60 MG TABLET PO SCH (09:17)
[2018-03-04] MEDS: CALCIUM CARBONATE 500 MG TABLET PO SCH ×2 (09:17→18:09)
[2018-03-04] MEDS: CETIRIZINE 10 MG TABLET PO SCH (09:18)
[2018-03-04] MEDS: CLOPIDOGREL BISULFATE 75 MG TABLET PO SCH (09:18)
[2018-03-04] MEDS: APIXABAN 5 MG TABLET PO SCH ×2 (09:18→18:09)
[2018-03-04] MEDS: GUAIFENESIN 600 MG TABLET.SA PO SCH ×2 (09:18→21:25)
[2018-03-04] MEDS: MAGNESIUM OXIDE 400 MG TABLET PO SCH (09:18)
[2018-03-04] MEDS: TACROLIMUS ANHYDROUS 1 MG CAPSULE PO SCH ×2 (09:19→21:26)
[2018-03-04] MEDS: ROFLUMILAST 500 MCG TABLET PO SCH (09:19)
[2018-03-04] MEDS: MIDODRINE HCL 5 MG TABLET PO SCH (09:19)
[2018-03-04] MEDS: BUDESONIDE/FORMOTEROL 160-4.5 MCG 60 PUFF/6 GM MDI IH SCH ×2 (09:19→21:24)
[2018-03-04] MEDS: ROPINIROLE HCL 1 MG TABLET PO SCH ×2 (09:20→21:27)
[2018-03-04] MEDS: DOCUSATE SODIUM 100 MG CAPSULE PO SCH ×2 (09:23→18:14)
[2018-03-04] MEDS: TIOTROPIUM BROMIDE DPI 5 CAP/KIT (18 MCG/CAP) IH SCH (09:23)
[2018-03-04] MEDS ORDERED: POTASSIUM CHLORIDE 10 MEQ TABLET.SA PO ONE (09:30)
[2018-03-04] MEDS ORDERED: MAGNESIUM OXIDE 400 MG TABLET PO SCH (10:00)
[2018-03-04] MEDS: INSULIN LISPRO 100 UNIT/ML 3 ML VIAL SUBCUT PRN ×2 (12:10→23:12)
--- NOTE | 2018-03-04 12:49 | XCELERA REPORT ---
[address] [address] Lower Extremity Venous Evaluation Name: JOSE GOMEZ JR Age: 73 yrs Gender: Male : 1945 Patient Status: Inpatient Patient Location: [address] [place], [place] [address]A Study Date: 03/04/2018 10:23 AM Procedure: Color flow and duplex imaging bilaterally of the veins of the lower extremities as well as the Common Femoral veins. Reason For Study: Edema Ordering Physician: MAGALY ROLLE Performed By: Mitesh Valladares Right Sided Venous Evaluation Normal vessel filling wall to wall, compression and augmentation as well as Colour flow down to the infrageniculate veins. Left Sided Venous Evaluation Normal vessel filling wall to wall, compression and augmentation as well as Colour flow down to the infrageniculate veins. Interpretation Summary No duplex evidence of DVT or obstruction in the bilateral lower extremities. : MAGALY ROLLE > Rick Patino
--- NOTE | 2018-03-04 12:59 | PDOC PROGRESS REPORT ---
Subjective Progress Note for:: 03/04/18 Subjective:: 73 yr old male with history of Loretta's granulomatosis with kidney involvement status post kidney transplant. Chronic hypoxic respiratory failure due to COPD on 2 L oxygen at home Systolic and diastolic CHF Asthma Hypertension Obstructive sleep apnea not compliant with CPAP Hyperlipidemia Coronary artery disease status post [place] 2 Pulmonary embolism Skin cancer recent resection from upper chest Pulmonary hypertension Atrial fibrillation He presented to the emergency room with a two-week history of progressively worsening shortness of breath and lower extremity edema. He admits to noncompliance with his CPAP as well as Lasix dosage. He has discoloration of his arms and legs after sun exposure during treatment for nocardia. He was recently seen at a local urgent care and was given a course of doxycycline with no improvement. He is being treated for COPD exacerbation as well as combined systolic and diastolic congestive heart failure exacerbation. Feels much better today. No complaints. Lower extremity venous doppler studies negative for DVT. Reason For Visit: ACUTE ON CHRONIC CHF Physical Exam Vital Signs: Temp Pulse Resp BP Pulse Ox 98.0 F 101 H 20 140/78 H 95 03/04/18 12:00 03/04/18 12:00 03/04/18 12:00 03/04/18 12:00 03/04/18 12:00 Intake & Output 03/03/18 03/04/18 03/05/18 06:59 06:59 06:59 Intake Total 480 1745 Output Total 1200 3250 Balance -720 -1505 Weight 72.7 kg 76.7 kg Results Laboratory Results: 03/04/18 05:52 03/04/18 05:52 03/03/18 03/04/18 03/04/18 04:45 05:52 05:52 WBC 9.8 RBC 3.22 L Hgb 9.7 L Hct 29.2 L MCV 91 MCH 30.0 MCHC 33.1 RDW 15.8 H Plt Count 246 Seg Neutrophils % Not Reportable Lymphocytes % Not Reportable Monocytes % Not Reportable Eosinophils % Not Reportable Basophils % Not Reportable Absolute Neutrophils Not Reportable Absolute Lymphocytes Not Reportable Absolute Monocytes Not Reportable Absolute Eosinophils Not Reportable Absolute Basophils Not Reportable Sodium 144.6 Potassium 3.2 L Chloride 104 Carbon Dioxide 26 Anion Gap 15 BUN 51 H Creatinine 0.92 Est GFR ( Amer) > 60 Est GFR (Non-Af Amer) > 60 Glucose 135 H Calcium 6.0 L* Phosphorus Magnesium 1.6 Transferrin 184 L 03/04/18 05:52 WBC RBC Hgb Hct MCV MCH MCHC RDW Plt Count Seg Neutrophils % Lymphocytes % Monocytes % Eosinophils % Basophils % Absolute Neutrophils Absolute Lymphocytes Absolute Monocytes Absolute Eosinophils Absolute Basophils Sodium Potassium Chloride Carbon Dioxide Anion Gap BUN Creatinine Est GFR ( Amer) Est GFR (Non-Af Amer) Glucose Calcium Phosphorus 4.5 Magnesium Transferrin 03/02/18 03/03/18 22:30 04:45 Troponin I 0.042 0.047 Impressions: Chest X-Ray 03/02/18 16:04 IMPRESSION: Mild chronic lung changes with no acute pulmonary disease. Borderline cardiomegaly without failure. Chest/Abdomen CTA 03/02/18 17:12 IMPRESSION: No evidence for pulmonary embolic disease. Minimal patchy densities in the right lower lung feel most consistent with a patchy pneumonic infiltrate. There are some associated bronchiectatic changes in the right lung base. No consolidations or pleural effusions are identified. Emphysematous changes are identified. Other findings as noted above Assessment & Plan - Diagnosis (1) Acute exacerbation of chronic obstructive pulmonary disease (COPD) Is this a current diagnosis for this admission?: Yes Plan: taper IV steroids, Continue Mucinex, antibiotics, inhalers, duo nebs and supplemental oxygen (2) Acute on chronic combined systolic and diastolic CHF (congestive heart failure) Is this a current diagnosis for this admission?: Yes Plan: Continue IV Lasix. Monitor intake and output. Monitor kidney function. (3) Atrial fibrillation Qualifiers: Atrial fibrillation type: permanent Qualified Code(s): I48.2 - Chronic atrial fibrillation Is this a current diagnosis for this admission?: Yes Plan: On Cardizem Eliquis and Plavix. (4) HTN (hypertension) Is this a current diagnosis for this admission?: Yes Plan: Stable. Continue outpatient medications. (5) History of Loretta's granulomatosis Is this a current diagnosis for this admission?: Yes (6) Anemia of chronic disease Is this a current diagnosis for this admission?: Yes Plan: Stable. (7) Chronic respiratory failure Is this a current diagnosis for this admission?: Yes Plan: Due to COPD. 2L [place] supplemental oxygen. (8) Esophageal reflux disease Qualifiers: Esophagitis presence: esophagitis presence not specified Qualified Code(s) : K21.9 - Gastro-esophageal reflux disease without esophagitis Is this a current diagnosis for this admission?: Yes Plan: Lansoprazole. (9) History of pulmonary embolism Is this a current diagnosis for this admission?: Yes Plan: On anticoagulation. (10) Opiate dependence, continuous Is this a current diagnosis for this admission?: Yes Plan: Continue Percocet as needed. (11) Coronary atherosclerosis Qualifiers: Coronary Disease-Associated Artery/Lesion type: [place] artery [place] vs. transplanted heart: [place] heart Associated angina: without angina Qualified Code(s): I25.10 - Atherosclerotic heart disease of [place] coronary artery without angina pectoris Is this a current diagnosis for this admission?: Yes Plan: Continue outpatient medications. (12) Pulmonary hypertension Is this a current diagnosis for this admission?: Yes Plan: Continue current management. CPAP use encouraged for his obstructive sleep apnea. (13) Transplanted kidney Is this a current diagnosis for this admission?: Yes Plan: Continue outpatient medications. (14) Hypokalemia Is this a current diagnosis for this admission?: Yes Plan: replete (15) Hypocalcemia Is this a current diagnosis for this admission?: Yes Plan: replete (16) Hypomagnesemia Is this a current diagnosis for this admission?: Yes Plan: replete - Time Time Spent with patient: 35 or more minutes
[2018-03-04] MEDS ORDERED: ATORVASTATIN CALCIUM 40 MG TABLET PO SCH (22:00)
[2018-03-05] MEDS: OXYCODONE-ACETAMINOPHEN 5-325 MG TABLET PO PRN (01:34)
[2018-03-05 05:18] LABS: HEMATOCRIT 36.9 % (37.9-51.0); MEAN CORPUSCULAR HEMOGLOBIN 29.4 pg (27.0-33.4); MEAN CORPUSCULAR HGB CONC 32.6 g/dL (32.0-36.0); MEAN CORPUSCULAR VOLUME 90 fl (80-97); PLATELET COUNT 295 10^3/uL (150-450); RED BLOOD COUNT 4.08 10^6/uL (4.35-5.55); RED CELL DISTRIBUTION WIDTH 15.8 % (11.5-14.0); WHITE BLOOD COUNT 11.7 10^3/uL (4.0-10.5)
[2018-03-05 05:38] LABS: ANION GAP 10 (5-19); BLOOD UREA NITROGEN 69 mg/dL (7-20); CALCIUM 8.7 mg/dL (8.4-10.2); CARBON DIOXIDE 35 mmol/L (22-30); CHLORIDE 93 mmol/L (98-107); GLUCOSE 170 mg/dL (75-110); SODIUM 138.2 mmol/L (137-145)
[2018-03-05 05:49] LABS: POTASSIUM 4.8 mmol/L (3.6-5.0)
[2018-03-05 05:50] LABS: ABSOLUTE LYMPHOCYTES# (MANUAL) 0.1 10^3/uL (0.5-4.7); ABSOLUTE MONOCYTES # (MANUAL) 0.4 10^3/uL (0.1-1.4); ABSOLUTE NEUTROPHILS# (MANUAL) 11.2 10^3/uL (1.7-8.2); BASOPHILS % (MANUAL) 0 % (0-2); EOSINOPHILS % (MANUAL) 0 % (0-6); LYMPHOCYTES % (MANUAL) 1 % (13-45); MONOCYTES % (MANUAL) 3 % (3-13); SEGMENTED NEUTROPHILS % (MAN) 96 % (42-78); TOTAL CELLS COUNTED 100
[2018-03-05 05:51] LABS: ANISOCYTOSIS SLIGHT; OVALOCYTES SLIGHT; PLATELET COMMENT ADEQUATE; POIKILOCYTOSIS SLIGHT; POLYCHROMASIA SLIGHT
[2018-03-05] MEDS: MYCOPHENOLIC ACID 360 MG PO SCH (06:56)
[2018-03-05] MEDS: LANSOPRAZOLE 15 MG TAB.RAP.DR PO SCH (06:57)
[2018-03-05] MEDS: GABAPENTIN 300 MG CAPSULE PO SCH (06:57)
[2018-03-05] MEDS: FUROSEMIDE INJ/PF 20 MG/2 ML SDV IV SCH (06:58)
[2018-03-05] MEDS: METHYLPREDNISOLONE INJ 40 MG/1 ML SDV IV SCH (07:00)
[2018-03-05 08:32] VITALS: BP 137/73
[2018-03-05] MEDS: IPRATROPIUM/ALBUTEROL 0.5-2.5 MG/3 ML AMPUL NEB SCH (08:37)
[2018-03-05] MEDS: DILTIAZEM HCL 60 MG TABLET PO SCH (09:08)
[2018-03-05] MEDS: GUAIFENESIN 600 MG TABLET.SA PO SCH (09:09)
[2018-03-05] MEDS: CETIRIZINE 10 MG TABLET PO SCH (09:09)
[2018-03-05] MEDS: CALCIUM CARBONATE 500 MG TABLET PO SCH (09:09)
[2018-03-05] MEDS: CLOPIDOGREL BISULFATE 75 MG TABLET PO SCH (09:09)
[2018-03-05] MEDS: MAGNESIUM OXIDE 400 MG TABLET PO SCH (09:10)
[2018-03-05] MEDS: MIDODRINE HCL 5 MG TABLET PO SCH (09:10)
[2018-03-05] MEDS: ROFLUMILAST 500 MCG TABLET PO SCH (09:11)
[2018-03-05] MEDS: APIXABAN 5 MG TABLET PO SCH (09:11)
[2018-03-05] MEDS: BUDESONIDE/FORMOTEROL 160-4.5 MCG 60 PUFF/6 GM MDI IH SCH (09:12)
[2018-03-05] MEDS: TACROLIMUS ANHYDROUS 1 MG CAPSULE PO SCH (09:12)
[2018-03-05] MEDS: TIOTROPIUM BROMIDE DPI 5 CAP/KIT (18 MCG/CAP) IH SCH (09:13)
[2018-03-05] MEDS: DOCUSATE SODIUM 100 MG CAPSULE PO SCH (09:15)
[2018-03-05] MEDS ORDERED: BUMETANIDE 1 MG TABLET PO SCH (10:00)
--- NOTE | 2018-03-05 11:06 | PDOC DISCHARGE SUMMARY ---
General - Admit/Disc Date/PCP Admission Date/Primary Care Provider: 03/02/18 19:16 PORSCHE SAPP MD Discharge Date: 03/05/18 - Discharge Diagnosis (1) Acute exacerbation of chronic obstructive pulmonary disease (COPD) Is this a current diagnosis for this admission?: Yes (2) Acute on chronic combined systolic and diastolic CHF (congestive heart failure) Is this a current diagnosis for this admission?: Yes (3) Atrial fibrillation Is this a current diagnosis for this admission?: Yes (4) HTN (hypertension) Is this a current diagnosis for this admission?: Yes (5) History of Loretta's granulomatosis Is this a current diagnosis for this admission?: Yes (6) Anemia of chronic disease Is this a current diagnosis for this admission?: Yes (7) Chronic respiratory failure Is this a current diagnosis for this admission?: Yes (8) Esophageal reflux disease Is this a current diagnosis for this admission?: Yes (9) History of pulmonary embolism Is this a current diagnosis for this admission?: Yes (10) Opiate dependence, continuous Is this a current diagnosis for this admission?: Yes (11) Coronary atherosclerosis Is this a current diagnosis for this admission?: Yes (12) Pulmonary hypertension Is this a current diagnosis for this admission?: Yes (13) Transplanted kidney Is this a current diagnosis for this admission?: Yes (14) Hypokalemia Is this a current diagnosis for this admission?: Yes (15) Hypocalcemia Is this a current diagnosis for this admission?: Yes (16) Hypomagnesemia Is this a current diagnosis for this admission?: Yes - Additional Information Resuscitation Status: Full Code Discharge Diet: Cardiac Discharge Activity: Activity As Tolerated, Balance Activity w/Rest, Keep Legs Elevated, Weigh Daily Prescriptions: Bumetanide [Bumex 1 mg Tablet] 1 mg PO MOWEFR 30 Days #15 tablet Guaifenesin [Mucinex Sr 600 mg Tablet.sa] 600 mg PO Q12 5 Days #10 tablet.sa Prednisone [Deltasone 20 mg Tablet] 40 mg PO DAILY #7 tablet Home Medications: Albuterol Sulfate [Proventil Hfa] 2 puff IH Q6HP PRN 03/02/18 Apixaban [Eliquis 5 mg Tablet] 5 mg PO Q12 03/02/18 Atorvastatin Calcium 40 mg PO DAILY 03/02/18 Budesonide/Formoterol Fumarate [Symbicort 160-4.5 Mcg Inhaler] 1 puff IH Q12 07/12 Cetirizine HCl [All Day Allergy] 10 mg PO DAILY 03/02/18 Clopidogrel Bisulfate [Clopidogrel] 75 mg PO DAILY 03/02/18 Diltiazem HCl 120 mg PO DAILY 03/02/18 Docusate Sodium 100 mg PO BID 03/02/18 Ergocalciferol (Vitamin D2) [Vitamin D2] 50,000 unit PO [id number] 03/02/18 Gabapentin 300 mg PO DAILY 03/02/18 Gabapentin [Neurontin 300 mg Capsule] 300 mg PO QHS 03/02/18 Gabapentin [Neurontin 300 mg Capsule] 600 mg PO DAILY@1500 03/02/18 Midodrine HCl [Proamatine 5 Mg Tablet] 5 mg PO DAILY 03/02/18 Minocycline HCl 100 mg PO DAILY 03/02/18 Mycophenolate Sodium [Mycophenolic Acid] 360 mg PO TID 03/02/18 Oxycodone HCl/Acetaminophen [Oxycodone-Acetaminophen 5-325] 1 each PO Q4HP PRN 03/02/18 Prednisone 5 mg PO DAILY 03/02/18 Promethazine HCl 25 mg PO Q4HP PRN 03/02/18 Ropinirole HCl 1 mg PO DAILY 03/02/18 Ropinirole HCl [Requip] 1 mg PO DAILY@1500 03/02/18 Ropinirole HCl [Requip] 2 mg PO QHS 03/02/18 Tacrolimus [Prograf] 1 mg PO Q12 03/02/18 Tiotropium [place] [Spiriva] 18 mcg IH DAILY 03/02/18 Bumetanide [Bumex 1 mg Tablet] 1 mg PO MOWEFR 30 Days #15 tablet 03/05/18 Guaifenesin [Mucinex Sr 600 mg Tablet.sa] 600 mg PO Q12 5 Days #10 tablet.sa 10/11 Magnesium Oxide [Magnesium] 400 mg PO MOWEFR #0 03/05/18 Prednisone [Deltasone 20 mg Tablet] 40 mg PO DAILY #7 tablet 03/05/18 History of Present Illness History of Present Illness: 73 yr old male with history of Loretta's granulomatosis with kidney involvement status post kidney transplant. Chronic hypoxic respiratory failure due to COPD on 2 L oxygen at home Systolic and diastolic CHF Asthma Hypertension Obstructive sleep apnea not compliant with CPAP Hyperlipidemia Coronary artery disease status post [place] 2 Pulmonary embolism Skin cancer recent resection from upper chest Pulmonary hypertension Atrial fibrillation He presented to the emergency room with a two-week history of progressively worsening shortness of breath and lower extremity edema. He admits to noncompliance with his CPAP as well as Lasix dosage. He has discoloration of his arms and legs after sun exposure during treatment for nocardia. He was recently seen at a local urgent care and was given a course of doxycycline with no improvement. He was treated for COPD exacerbation as well as combined systolic and diastolic congestive heart failure exacerbation. Lower extremity venous doppler studies negative for DVT. Feels much better. Stable for discharge home. He was evaluated by physical therapy and they recommended home PT. Follow-up with primary care, nephrology and cardiology in 1 week. Basic metabolic panel on March 10, 2018. Physical Exam Vital Signs: Temp Pulse Resp BP Pulse Ox 97.9 F 74 16 137/73 H 96 03/05/18 08:00 03/05/18 08:37 03/05/18 08:37 03/05/18 08:00 03/05/18 08:37 Intake & Output 03/04/18 03/05/18 03/06/18 06:59 06:59 06:59 Intake Total 1745 1659 Output Total 3250 3260 Balance -1505 -1601 Weight 76.7 kg 77.8 kg General appearance: PRESENT: no acute distress Respiratory exam: PRESENT: symmetrical, unlabored GI/Abdominal exam: PRESENT: soft Results Laboratory Results: 03/05/18 04:01 03/05/18 04:01 03/05/18 03/05/18 04:01 04:01 WBC 11.7 H RBC 4.08 L Hgb 12.0 L D Hct 36.9 L MCV 90 MCH 29.4 MCHC 32.6 RDW 15.8 H Plt Count 295 Seg Neutrophils % Not Reportable Lymphocytes % Not Reportable Monocytes % Not Reportable Eosinophils % Not Reportable Basophils % Not Reportable Absolute Neutrophils Not Reportable Absolute Lymphocytes Not Reportable Absolute Monocytes Not Reportable Absolute Eosinophils Not Reportable Absolute Basophils Not Reportable Sodium 138.2 Potassium 4.8 D Chloride 93 L Carbon Dioxide 35 H Anion Gap 10 BUN 69 H Creatinine 1.43 H Est GFR ( Amer) 59 L Est GFR (Non-Af Amer) 49 L Glucose 170 H Calcium 8.7 Magnesium 2.4 H 03/02/18 03/03/18 22:30 04:45 Troponin I 0.042 0.047 Impressions: Chest X-Ray 03/02/18 16:04 IMPRESSION: Mild chronic lung changes with no acute pulmonary disease. Borderline cardiomegaly without failure. Chest/Abdomen CTA 03/02/18 17:12 IMPRESSION: No evidence for pulmonary embolic disease. Minimal patchy densities in the right lower lung feel most consistent with a patchy pneumonic infiltrate. There are some associated bronchiectatic changes in the right lung base. No consolidations or pleural effusions are identified. Emphysematous changes are identified. Other findings as noted above Qualifiers - * PATIENT BEING DISCHARGED WITH ANY OF THE FOLLOWING DIAGNOSIS: Heart Failure VTE patient discharged on overlapping Therapy?: Yes Stroke Pt being discharged on Anti-thrombolytic therapy?: Yes Stroke Pt being discharged on Anti-coagulation therapy?: Yes Stroke Pt being discharged on Statins?: Yes [place] Pt being discharged on Aspirin therapy?: No Reason(s) for not prescribing Aspirin therapy:: Medical Contraindication [place] Pt being discharged on Statins?: Yes [place] Pt discharged ACEI/ARBS?: No Reason(s) for not prescribing ACEI/ARBS:: Medical Contraindication HF Pt being discharged on ACEI for LVEF less than 40%?: No Reason(s) for not prescribing ACEI:: Medical Contraindication HF Pt being discharged on ARBS for LVEF less than 40%?: No Reason(s) for not prescribing ARBS:: Medical Contraindication HF Pt with Afib discharged with Warfarin?: Yes HF Pt discharged on evidence-based Beta Dagoberto:: Yes Plan Time Spent: Greater than 30 Minutes
[2018-03-05] MEDS ORDERED: ROPINIROLE HCL 1 MG TABLET PO SCH ×2 (15:00→22:00)
[2018-03-05] MEDS ORDERED: GABAPENTIN 300 MG CAPSULE PO SCH ×2 (15:00→22:00)
[2018-03-06] MEDS ORDERED: ERGOCALCIFEROL (VITAMIN D2) 50000 UNIT (1.25 MG) CAPSULE PO SCH (10:00)
[2018-03-07] MEDS ORDERED: BUMETANIDE 1 MG TABLET PO SCH (10:00)
== END 2018-03-05 12:27 | disposition home health service (06) | DRG 189 ==
LOC: ER 15:51 → EH 19:16 → 4N 22:05
PROVIDERS: ADMIT Internal Medicine; ATTEND Internal Medicine
DX: J96.21 Acute and chronic respiratory failure with hypoxia (principal); I50.43 Acute on chronic combined systolic (congestive) and diastolic (congestive) heart failure; M31.31 Wegener's granulomatosis with renal involvement; J44.1 Chronic obstructive pulmonary disease with (acute) exacerbation; J44.0 Chronic obstructive pulmonary disease with (acute) lower respiratory infection; Z94.0 Kidney transplant status; Z99.81 Dependence on supplemental oxygen; I25.10 Atherosclerotic heart disease of native coronary artery without angina pectoris; J20.9 Acute bronchitis, unspecified; I27.20 Pulmonary hypertension, unspecified; I11.0 Hypertensive heart disease with heart failure; I48.2 Chronic atrial fibrillation; D64.9 Anemia, unspecified; E87.5 Hyperkalemia; E83.51 Hypocalcemia; E87.6 Hypokalemia; E83.42 Hypomagnesemia; G47.33 Obstructive sleep apnea (adult) (pediatric); Z87.891 Personal history of nicotine dependence; Z86.711 Personal history of pulmonary embolism; Z79.899 Other long term (current) drug therapy; Z79.01 Long term (current) use of anticoagulants; Z79.51 Long term (current) use of inhaled steroids; Z79.52 Long term (current) use of systemic steroids
CPT/HCPCS: 36415; 71045; 71275; 80048; 80053; 81001; 82550; 82607; 82728; 82746; 82803; 82962; 83540; 83550; 83605; 83735; 83880; 84100; 84466; 84484; 85025; 85045; 87040; 93005; 93010; 93970; 94640; 96365; 96375; 99285; G8978-GP; G8979-GP; J0610; J1815; J1940; J2185; J2543; J2920; J3475; J3490; J7507; J7517; J7620

== ENCOUNTER 2018-04-10 12:39 | Emergency (ER) | payer MEDICARE ==
[2018-04-10] MEDS ORDERED: ASPIRIN 81 MG TABLET, CHEWABLE PO ONE (13:48)
--- NOTE | 2018-04-10 14:20 | RADIOLOGY REPORT (SQ) ---
EXAM DESCRIPTION: CHEST SINGLE VIEW COMPLETED DATE/TIME: 04/10/2018 2:06 pm REASON FOR STUDY: chest pain/shortness of breath COMPARISON: CT angio chest 03/02/2018, 11/04/2017, 07/30/2017, 06/04/2017 AP chest 03/02/2018 EXAM PARAMETERS: NUMBER OF VIEWS: One view. TECHNIQUE: Single frontal radiographic view of the chest acquired. RADIATION DOSE: NA LIMITATIONS: None. FINDINGS: LUNGS AND PLEURA: Upper lobes are hyperlucent from obstructive disease. Stable bronchiect asis and reticulonodular interstitial disease in the mid and lower lungs. No acute infiltrates. No pleural effusion. No pneumothorax. MEDIASTINUM AND HILAR STRUCTURES: No masses. Contour normal. HEART AND VASCULAR STRUCTURES: No cardiomegaly. Old sternotomy and CABG BONES: No acute findings. HARDWARE: Surgical clips in the right and left upper extremities along dialysis access OTHER: No other significant finding. IMPRESSION: No acute changes TECHNICAL DOCUMENTATION: JOB ID: [id number] [employer]- All Rights Reserved Reading location - IP/workstation name: [email or web address]
[2018-04-10 14:22] LABS: ABSOLUTE BASOPHILS # (AUTO) 0.1 10^3/uL (0.0-0.2); ABSOLUTE EOSINOPHILS # (AUTO) 0.1 10^3/uL (0.0-0.6); ABSOLUTE LYMPHOCYTES (AUTO) 0.5 10^3/uL (0.5-4.7); ABSOLUTE MONOCYTES (AUTO) 0.8 10^3/uL (0.1-1.4); ABSOLUTE NEUT (AUTO) 7.3 10^3/uL (1.7-8.2); BASOPHILS % (AUTO) 0.6 % (0-2); EOSINOPHILS % (AUTO) 1.6 % (0-6); HEMATOCRIT 35.9 % (37.9-51.0); HEMOGLOBIN 11.8 g/dL (13.5-17.0); LYMPHOCYTES % (AUTO) 5.4 % (13-45); MEAN CORPUSCULAR HEMOGLOBIN 28.8 pg (27.0-33.4); MEAN CORPUSCULAR HGB CONC 32.7 g/dL (32.0-36.0); MEAN CORPUSCULAR VOLUME 88 fl (80-97); MONOCYTES % (AUTO) 9.5 % (3-13); PLATELET COUNT 406 10^3/uL (150-450); RED BLOOD COUNT 4.08 10^6/uL (4.35-5.55); RED CELL DISTRIBUTION WIDTH 16.1 % (11.5-14.0); SEGMENTED NEUTROPHILS % (AUTO) 82.9 % (42-78); TOTAL CELLS COUNTED % (AUTO) 100 %; WHITE BLOOD COUNT 8.8 10^3/uL (4.0-10.5)
[2018-04-10 14:30] LABS: ALANINE AMINOTRANSFERASE 50 U/L (21-72); ALBUMIN 3.5 g/dL (3.5-5.0); ALKALINE PHOSPHATASE 128 U/L (38-126); ANION GAP 15 (5-19); ASPARTATE AMINO TRANSFERASE 55 U/L (17-59); BILIRUBIN,DIRECT 0.4 mg/dL (0.0-0.4); BILIRUBIN,TOTAL 0.4 mg/dL (0.2-1.3); BLOOD UREA NITROGEN 61 mg/dL (7-20); CALCIUM 8.8 mg/dL (8.4-10.2); CARBON DIOXIDE 29 mmol/L (22-30); CHLORIDE 101 mmol/L (98-107); CREATINE KINASE 222 U/L (55-170); GLUCOSE 125 mg/dL (75-110); POTASSIUM 3.7 mmol/L (3.6-5.0); SODIUM 145.1 mmol/L (137-145); TOTAL PROTEIN 6.6 g/dL (6.3-8.2)
[2018-04-10 14:40] LABS: CREATINE KINASE MB 4.81 ng/mL (<4.55)
[2018-04-10 14:43] LABS: TROPONIN I 0.047 ng/mL
--- NOTE | 2018-04-10 15:35 | ER Document Report ---
ED General - General Chief Complaint: Chest Pain Stated Complaint: WEAKNESS Time Seen by Provider: 04/10/18 14:32 Mode of Arrival: Wheelchair Information source: Patient Notes: This is a 73-year-old man with a history of coronary artery disease, COPD, atrial fibrillation the presents to the emergency room with chest discomfort for the last several days which he says is different than his COPD. He did take nitroglycerin which seemed to improve the pain. Currently he is pain-free. TRAVEL OUTSIDE OF THE [place] IN LAST 30 DAYS: No - HPI Onset: Just prior to arrival Onset/Duration: Gradual Quality of pain: Dull Severity: Moderate Pain Level: 2 Associated symptoms: Chest pain, Shortness of breath. denies: Fever Exacerbated by: Denies Relieved by: Other - Nitroglycerin Similar symptoms previously: Yes Recently seen / treated by doctor: Yes - Related Data Allergies/Adverse Reactions: aspirin [Aspirin] Allergy (Verified 09/01/17 18:00) iron [Iron] Allergy (Verified 09/01/17 18:00) Past Medical History - General Information source: Patient - Social History Smoking Status: Former Smoker Cigarette use (# per day): No Chew tobacco use (# tins/day): No Frequency of alcohol use: Rare Drug Abuse: None Lives with: Family Family History: CAD, Hypertension Patient has suicidal ideation: No Patient has homicidal ideation: No - Past Medical History Cardiac Medical History: Reports: Hx Atrial Fibrillation, Hx Congestive Heart Failure, Hx Coronary Artery Disease, Hx Heart Attack - x2, Hx Hypercholesterolemia, Hx Pulmonary Embolism Denies: Hx Hypertension Pulmonary Medical History: Reports: Hx Asthma, Hx Bronchitis, Hx COPD, Hx Pneumonia, Hx Sleep Apnea Neurological Medical History: Denies: Hx Cerebrovascular Accident, Hx Seizures Endocrine Medical History: Denies: Hx Diabetes Mellitus Type 1, Hx Diabetes Mellitus Type 2 Renal/ Medical History: Reports: Hx End Stage Renal Disease - Patient was previously on hemodialysis prior to kidney transplant., Hx Hemodialysis - No longer on dialysis. Denies: Hx Peritoneal Dialysis Malignancy Medical History: Reports Hx Skin Cancer Musculoskeltal Medical History: Reports Hx Arthritis Psychiatric Medical History: Denies: Hx Depression Past Surgical History: Reports: Hx Cardiac Catheterization, Hx Cardiac Surgery - cabg, Hx Coronary Artery Bypass Graft - 3 vessels on 09/19/2008, Hx Coronary Stent - 10/15/1999, Hx Kidney (Renal Surgery) - kidney transplant, Hx Open Heart Surgery - x 3V, Other - Kidney transplant - Immunizations Hx Diphtheria, Pertussis, Tetanus Vaccination: Yes Hx Pneumococcal Vaccination: 06/25/16 Review of Systems - Review of Systems Constitutional: denies: Chills, Fever EENT: No symptoms reported Cardiovascular: See HPI Respiratory: See HPI Gastrointestinal: No symptoms reported Genitourinary: No symptoms reported Male Genitourinary: No symptoms reported Musculoskeletal: No symptoms reported Skin: No symptoms reported Hematologic/Lymphatic: No symptoms reported Neurological/Psychological: No symptoms reported Physical Exam - Vital signs Vitals: Temp Resp Pulse Ox 97.4 F 12 99 04/10/18 12:47 04/10/18 12:47 04/10/18 12:47 Notes: Physical exam: GENERAL: This is a chronically ill-appearing man that currently has a blood pressure of 106/60, heart rate of 105, respiratory rate 22, O2 sat 99% on 2 L HEAD: Atraumatic, normocephalic. EYES: Pupils equal round and reactive to light, extraocular movements intact, sclera anicteric, conjunctiva are normal. ENT: TMs normal, nares patent, oropharynx clear without exudates. Moist mucous membranes. NECK: Normal range of motion, supple without obvious mass or JVD. LUNGS: Bilateral wheezing HEART: Regular rate and rhythm without murmurs, rubs or gallops. ABDOMEN: Soft, normoactive bowel sounds. No tenderness to palpation. No guarding, no rebound. No masses appreciated. EXTREMITIES: Lower extremity edema 1+. Patient is chronic skin changes to the upper extremities NEUROLOGICAL: Cranial nerves II through XII grossly intact. Normal speech, moving all extremities. PSYCH: Normal mood, normal affect. SKIN: [place] skin changes to the upper extremities Course - Re-evaluation Re-evalutation: 04/10/18 19:34 Note: Given the patient's extensive cardiac history, I did originally admit the patient to the hospitalist service. While waiting for a bed, I was informed by the nurse that the patient did not want to stay. I did have a conference with the patient as well as his and other family members and explained to them that given the extensive cardiac history, I cannot tell them that this is not a cardiac event. They understand but the patient has a lot of compelling social reasons to go home and he ultimately made the decision for discharge. I strongly encouraged him to return if he had any further problems. - Vital Signs Vital signs: Temp Pulse Resp BP Pulse Ox 97.4 F 12 120/66 97 04/10/18 12:47 04/10/18 17:01 04/10/18 17:00 04/10/18 17:01 - Laboratory Result Diagrams: 04/10/18 12:57 04/10/18 12:57 Laboratory results interpreted by me: 04/10/18 04/10/18 04/10/18 12:57 12:57 12:57 RBC 4.08 L Hgb 11.8 L Hct 35.9 L RDW 16.1 H Seg Neutrophils % 82.9 H Lymphocytes % 5.4 L Sodium 145.1 H BUN 61 H Creatinine 1.84 H Est GFR ( Amer) 44 L Est GFR (Non-Af Amer) 36 L Glucose 125 H Alkaline Phosphatase 128 H Creatine Kinase 222 H CK-MB (CK-2) 4.81 H - Diagnostic Test Radiology reviewed: Image reviewed, Reports reviewed - Chest x-ray shows no acute changes - EKG Interpretation by Me Rhythm: A.Fib - EKG shows atrial fibrillation with a ventricular rate of 105, no acute ST-T wave changes Discharge - Discharge Clinical Impression: Chest pain Condition: Stable Disposition: HOME, SELF-CARE Additional Instructions: As we discussed, I would like you to take it easy for the rest of the weekend. Continue current medicines. If at any time, you feel like you discomfort is getting worse or you shortness of breath is getting worse, return to the emergency room. Otherwise, follow-up with your doctors this week. Referrals: PORSCHE SAPP MD [Primary Care Provider] - 04/11/18
--- NOTE | 2018-04-10 15:53 | EKG REPORT ---
SEVERITY:- ABNORMAL ECG - SINUS RHYTHM WITH MULTIPLE PACS. VENTRICULAR PREMATURE COMPLEX NONSPECIFIC INTRAVENTRICULAR CONDUCTION DELAY : Confirmed by: Jorgito Street MD 10-Apr-2018 15:52:39
[2018-04-10 16:12] LABS: APPEARANCE,URINE CLEAR; BILIRUBIN,URINE NEGATIVE (NEGATIVE); COLOR,URINE STRAW; GLUCOSE, URINE NEGATIVE (NEGATIVE); KETONES,URINE NEGATIVE (NEGATIVE); LEUKOCYTE ESTERASE,URINE NEGATIVE (NEGATIVE); NITRITE,URINE NEGATIVE (NEGATIVE); PROTEIN,URINE NEGATIVE (NEGATIVE); URINE SPECIFIC GRAVITY 1.006; UROBILINOGEN,URINE NEGATIVE mg/dL (<2.0)
[2018-04-10 17:30] VITALS: BP 120/66
== END 2018-04-10 17:30 | disposition home or self-care (01) ==
LOC: ER 12:39 → UNDOADMOB 16:17 → EH 16:17 → ER 17:30
DX: R07.9 Chest pain, unspecified (principal); R53.1 Weakness; I25.10 Atherosclerotic heart disease of native coronary artery without angina pectoris; J44.9 Chronic obstructive pulmonary disease, unspecified; I48.91 Unspecified atrial fibrillation; I50.9 Heart failure, unspecified; E78.00 Pure hypercholesterolemia, unspecified; N18.6 End stage renal disease; Z94.0 Kidney transplant status; Z88.6 Allergy status to analgesic agent; I25.2 Old myocardial infarction; Z86.711 Personal history of pulmonary embolism; Z95.1 Presence of aortocoronary bypass graft
CPT/HCPCS: 36415; 71045; 80053; 81001; 82550; 82553; 84484; 85025; 93005; 93010; 99285

== ENCOUNTER 2018-04-26 11:03 | Emergency (ER) | payer MEDICARE ==
--- NOTE | 2018-04-26 11:44 | ER Document Report ---
ED Medical Screen (RME) - General Chief Complaint: Urinary Problem Stated Complaint: KIDNEY ISSUES/URINARY ISSUES Time Seen by Provider: 04/26/18 11:40 Mode of Arrival: Wheelchair Information source: Patient, Dr. Office Notes: 73 yro ld male hx of renal transplant from [place] taking his antirejection medications daily , on eliquis and plavix presents with complaints of not urinating tooday. pt dneies any fevers or chills. pt seen at [place] 2 weeks ago, cr 1.8 I have greeted and performed a rapid initial assessment of this patient. A comprehensive ED assessment and evaluation of the patient, analysis of test results and completion of the medical decision making process will be conducted by additional ED providers. PHYSICAL EXAMINATION: GENERAL: chronically ill appearing HEAD: Atraumatic, normocephalic. EYES: Pupils equal round extraocular movements intact, conjunctiva are normal. ENT: Nares patent NECK: Normal range of motion LUNGS: No respiratory distress Musculoskeletal: Normal range of motion NEUROLOGICAL: Normal speech, normal gait. PSYCH: Normal mood, normal affect. SKIN: dusky facial appearance TRAVEL OUTSIDE OF THE [place] IN LAST 30 DAYS: No - Related Data Allergies/Adverse Reactions: aspirin [Aspirin] Allergy (Verified 04/26/18 11:05) iron [Iron] Allergy (Verified 04/26/18 11:05) Past Medical History - Past Medical History Cardiac Medical History: Reports: Hx Atrial Fibrillation, Hx Congestive Heart Failure, Hx Coronary Artery Disease, Hx Heart Attack - x2, Hx Hypercholesterolemia, Hx Pulmonary Embolism Denies: Hx Hypertension Pulmonary Medical History: Reports: Hx Asthma, Hx Bronchitis, Hx COPD, Hx Pneumonia, Hx Sleep Apnea Neurological Medical History: Denies: Hx Cerebrovascular Accident, Hx Seizures Endocrine Medical History: Denies: Hx Diabetes Mellitus Type 1, Hx Diabetes Mellitus Type 2 Renal/ Medical History: Reports: Hx End Stage Renal Disease - Patient was previously on hemodialysis prior to kidney transplant., Hx Hemodialysis - No longer on dialysis. Denies: Hx Peritoneal Dialysis Malignancy Medical History: Reports Hx Skin Cancer Musculoskeltal Medical History: Reports Hx Arthritis Psychiatric Medical History: Denies: Hx Depression Past Surgical History: Reports: Hx Cardiac Catheterization, Hx Cardiac Surgery - cabg, Hx Coronary Artery Bypass Graft - 3 vessels on 09/19/2008, Hx Coronary Stent - 10/15/1999, Hx Kidney (Renal Surgery) - kidney transplant, Hx Open Heart Surgery - x 3V, Other - Kidney transplant - Immunizations Hx Diphtheria, Pertussis, Tetanus Vaccination: Yes History of Influenza Vaccine for 07/2017 - 12/2017 Season: Yes Influenza Administration Date for 07/2017 - 12/2017 Season: 07/25/17 Physical Exam - Vital signs Vitals: Temp Pulse Resp BP Pulse Ox 98.7 F 80 20 123/60 96 04/26/18 11:18 04/26/18 11:18 04/26/18 11:18 04/26/18 11:18 04/26/18 11:18 Course - Vital Signs Vital signs: Temp Pulse Resp BP Pulse Ox 98.7 F 80 20 123/60 96 04/26/18 11:18 04/26/18 11:18 04/26/18 11:18 04/26/18 11:18 04/26/18 11:18 Doctor's Discharge - Discharge Referrals: PORSCHE SAPP MD [Primary Care Provider] - Follow up as needed
[2018-04-26 11:56] LABS: ABSOLUTE BASOPHILS # (AUTO) 0.1 10^3/uL (0.0-0.2); ABSOLUTE EOSINOPHILS # (AUTO) 0.3 10^3/uL (0.0-0.6); ABSOLUTE LYMPHOCYTES (AUTO) 0.6 10^3/uL (0.5-4.7); ABSOLUTE MONOCYTES (AUTO) 0.8 10^3/uL (0.1-1.4); ABSOLUTE NEUT (AUTO) 5.2 10^3/uL (1.7-8.2); BASOPHILS % (AUTO) 1.1 % (0-2); EOSINOPHILS % (AUTO) 4.2 % (0-6); HEMATOCRIT 36.6 % (37.9-51.0); HEMOGLOBIN 11.7 g/dL (13.5-17.0); LYMPHOCYTES % (AUTO) 8.8 % (13-45); MEAN CORPUSCULAR HEMOGLOBIN 28.1 pg (27.0-33.4); MEAN CORPUSCULAR VOLUME 88 fl (80-97); MONOCYTES % (AUTO) 12.1 % (3-13); PLATELET COUNT 357 10^3/uL (150-450); RED BLOOD COUNT 4.17 10^6/uL (4.35-5.55); RED CELL DISTRIBUTION WIDTH 15.9 % (11.5-14.0); SEGMENTED NEUTROPHILS % (AUTO) 73.8 % (42-78); TOTAL CELLS COUNTED % (AUTO) 100 %
[2018-04-26 12:34] LABS: ALANINE AMINOTRANSFERASE 44 U/L (21-72); ALBUMIN 3.2 g/dL (3.5-5.0); ALKALINE PHOSPHATASE 138 U/L (38-126); ANION GAP 12 (5-19); ASPARTATE AMINO TRANSFERASE 36 U/L (17-59); BILIRUBIN,DIRECT 0.4 mg/dL (0.0-0.4); BILIRUBIN,TOTAL 0.4 mg/dL (0.2-1.3); BLOOD UREA NITROGEN 57 mg/dL (7-20); CALCIUM 8.5 mg/dL (8.4-10.2); CARBON DIOXIDE 29 mmol/L (22-30); CHLORIDE 101 mmol/L (98-107); GLUCOSE 118 mg/dL (75-110); POTASSIUM 4.5 mmol/L (3.6-5.0); SODIUM 141.9 mmol/L (137-145)
[2018-04-26 12:57] LABS: APPEARANCE,URINE CLEAR; BILIRUBIN,URINE NEGATIVE (NEGATIVE); COLOR,URINE YELLOW; GLUCOSE, URINE NEGATIVE (NEGATIVE); KETONES,URINE NEGATIVE (NEGATIVE); LEUKOCYTE ESTERASE,URINE NEGATIVE (NEGATIVE); NITRITE,URINE NEGATIVE (NEGATIVE); PROTEIN,URINE NEGATIVE (NEGATIVE); URINE SPECIFIC GRAVITY 1.012; UROBILINOGEN,URINE NEGATIVE mg/dL (<2.0)
[2018-04-26] MEDS ORDERED: TAMSULOSIN HCL 0.4 MG CAP.SR.24H PO ONE (13:23)
[2018-04-26] MEDS ORDERED: LIDOCAINE 2% URO-JET 5 ML KIT MM ONE (13:31)
--- NOTE | 2018-04-26 14:53 | ER Document Report ---
ED General - General Chief Complaint: Urinary Problem Stated Complaint: KIDNEY ISSUES/URINARY ISSUES Time Seen by Provider: 04/26/18 11:40 Mode of Arrival: Wheelchair TRAVEL OUTSIDE OF THE [place] IN LAST 30 DAYS: No - HPI Patient complains to provider of: Urinary retention Notes: Patient coming in for evaluation of urinary retention. Patient had a kidney transplant performed in 2010. Patient states currently is following up with Dr. Pool nephrology for his kidney transplant no longer follows up with [facility]. Denies any fevers chills nausea vomiting diarrhea. Patient states has been drinking plenty water however recently in the last 24 hours not had appropriate urinary output states this is decreased. Patient denies any use of [id number] cough cold medications. Denies any changes any medications in the last 2 weeks. Patient otherwise resting comfortably upon my evaluation. - Related Data Allergies/Adverse Reactions: aspirin [Aspirin] Allergy (Verified 04/26/18 11:05) iron [Iron] Allergy (Verified 04/26/18 11:05) Past Medical History - General Information source: Patient, [facility] - Social History Smoking Status: Former Smoker Chew tobacco use (# tins/day): No Frequency of alcohol use: None Drug Abuse: None Family History: CAD, Hypertension Patient has suicidal ideation: No Patient has homicidal ideation: No - Past Medical History Cardiac Medical History: Reports: Hx Atrial Fibrillation, Hx Congestive Heart Failure, Hx Coronary Artery Disease, Hx Heart Attack - x2, Hx Hypercholesterolemia, Hx Pulmonary Embolism Denies: Hx Hypertension Pulmonary Medical History: Reports: Hx Asthma, Hx Bronchitis, Hx COPD, Hx Pneumonia, Hx Sleep Apnea Neurological Medical History: Denies: Hx Cerebrovascular Accident, Hx Seizures Endocrine Medical History: Denies: Hx Diabetes Mellitus Type 1, Hx Diabetes Mellitus Type 2 Renal/ Medical History: Reports: Hx End Stage Renal Disease - Patient was previously on hemodialysis prior to kidney transplant., Hx Hemodialysis - No longer on dialysis. Denies: Hx Peritoneal Dialysis Malignancy Medical History: Reports Hx Skin Cancer Musculoskeltal Medical History: Reports Hx Arthritis Psychiatric Medical History: Denies: Hx Depression Past Surgical History: Reports: Hx Cardiac Catheterization, Hx Cardiac Surgery - cabg, Hx Coronary Artery Bypass Graft - 3 vessels on 09/19/2008, Hx Coronary Stent - 10/15/1999, Hx Kidney (Renal Surgery) - kidney transplant, Hx Open Heart Surgery - x 3V, Other - Kidney transplant - Immunizations Hx Diphtheria, Pertussis, Tetanus Vaccination: Yes Hx Pneumococcal Vaccination: 06/25/16 Review of Systems - Review of Systems Constitutional: No symptoms reported EENT: No symptoms reported Cardiovascular: No symptoms reported Respiratory: No symptoms reported Gastrointestinal: No symptoms reported Genitourinary: Retention Male Genitourinary: No symptoms reported Musculoskeletal: No symptoms reported Skin: No symptoms reported Hematologic/Lymphatic: No symptoms reported Neurological/Psychological: No symptoms reported -: Yes All other systems reviewed and negative Physical Exam - Vital signs Vitals: Temp Pulse Resp BP Pulse Ox 98.7 F 80 20 123/60 96 04/26/18 11:18 04/26/18 11:18 04/26/18 11:18 04/26/18 11:18 04/26/18 11:18 Interpretation: Normal - General General appearance: Appears well, Alert - HEENT Head: Normocephalic, Atraumatic Eyes: Normal Pupils: PERRL - Respiratory Respiratory status: No respiratory distress Chest status: Nontender Breath sounds: Normal Chest palpation: Normal - Cardiovascular Rhythm: Regular Heart sounds: Normal auscultation Murmur: No - Abdominal Inspection: Normal Distension: No distension Bowel sounds: Normal Tenderness: Nontender Organomegaly: No organomegaly Notes: Bedside ultrasound shows greatly distended bladder calculations showing over 700 cc of urine within the bladder - Back Back: Normal, Nontender - Extremities General upper extremity: Normal inspection, Nontender, Normal color, Normal ROM , Normal temperature General lower extremity: Normal inspection, Nontender, Normal color, Normal ROM , Normal temperature, Normal weight bearing. No: Sadie's sign - Neurological Neuro grossly intact: Yes Cognition: Normal Orientation: AAOx4 [place] Coma Scale Eye Opening: Spontaneous Unique Coma Scale Verbal: Oriented Unique Coma Scale Motor: Obeys Commands Unique Coma Scale Total: 15 Speech: Normal Motor strength normal: LUE, RUE, LLE, RLE Sensory: Normal - Psychological Associated symptoms: Normal affect, Normal mood - Skin Skin Temperature: Warm Skin Moisture: Dry Skin Color: Normal Course - Re-evaluation Re-evalutation: 04/26/18 14:52 Rapp catheter was placed with greater than 800 cc urine output. Patient's laboratory studies that show a slight increase in the patient's creatinine from baseline what looks to be 1.87-2.27 today. I have paged nephrology for consultation more likely retention due to possible BPH. Otherwise patient's laboratory studies shows no signs of infection no other signs of concern of rejection. 04/26/18 15:49 I have just got the phone with both transplant team and covering nephrology Dr. Narayanan transplant team recommends prophylactic antibiotics with Macrobid Flomax and follow-up with urology. At time and states that the main sleeve tailor Dr. Pool should be back in the office next week. Patient's case will be discussed with a urologist at [facility] as we have no urology here today. 04/26/18 18:[address] Starkey urology at [facility] recommend patient call as soon as possible to schedule an appointment also recommended that we teach patient how to remove his own Rapp catheter to have them removed the catheter prior to his appointment however family at bedside states they are uncomfortable in performing this. We will continue with the plan of Flomax and prophylactic antibiotics. Patient also to follow-up with his sleeve tailor - Vital Signs Vital signs: Temp Pulse Resp BP Pulse Ox 98.5 F 75 18 120/64 98 04/26/18 16:00 04/26/18 16:00 04/26/18 16:00 04/26/18 16:00 04/26/18 16:00 - Laboratory Result Diagrams: 04/26/18 11:48 04/26/18 11:48 Laboratory results interpreted by me: 04/26/18 04/26/18 11:48 11:48 RBC 4.17 L Hgb 11.7 L Hct 36.6 L RDW 15.9 H Lymphocytes % 8.8 L BUN 57 H Creatinine 2.27 H Est GFR ( Amer) 35 L Est GFR (Non-Af Amer) 29 L Glucose 118 H Alkaline Phosphatase 138 H Total Protein 6.0 L Albumin 3.2 L Discharge - Discharge Clinical Impression: Urinary retention Condition: Good Disposition: HOME, SELF-CARE Instructions: Flomax ([facility]), Rapp Catheter Care ([facility]), Urinary Retention ([facility]) Additional Instructions: Your evaluation today shows no signs of infection. Highly recommend she follow- up with your sleeve tailor in 1 week. We will have a follow-up with a urologist in 1-2 weeks for further evaluation of urinary retention until that time please take the Flomax as prescribed take the prophylactic antibiotics as prescribed Prescriptions: Nitrofurantoin/Nitrofuran Mac [Macrobid 100 mg Capsule] 1 tab PO BID #20 capsule Tamsulosin HCl [Flomax 0.4 mg Cap.sr] 0.4 mg PO DAILY #14 cap.sr.24h Referrals: PORSCHE SAPP MD [Primary Care Provider] - Follow up as needed WAGNER STARKEY MD [NO LOCAL MD] - Follow up tomorrow (call office tomorrow for follow up appointment) AMY POOL MD [ACTIVE STAFF] - Follow up as needed (call office tomorrow for follow up appointment)
[2018-04-26] MEDS ORDERED: NITROFURANTOIN MONOHYD/M-CRYST 100 MG CAPSULE PO ONE (15:39)
[2018-04-26 17:07] VITALS: BP 120/64
== END 2018-04-26 16:00 | disposition home or self-care (01) ==
LOC: ER 11:03
DX: R33.9 Retention of urine, unspecified (principal); I48.91 Unspecified atrial fibrillation; I50.9 Heart failure, unspecified; I25.10 Atherosclerotic heart disease of native coronary artery without angina pectoris; E78.00 Pure hypercholesterolemia, unspecified; J44.9 Chronic obstructive pulmonary disease, unspecified; Z94.0 Kidney transplant status; Z88.6 Allergy status to analgesic agent; I25.2 Old myocardial infarction; Z86.711 Personal history of pulmonary embolism; Z95.1 Presence of aortocoronary bypass graft
CPT/HCPCS: 99283; 51702; 36415; 85025; 80053; 81001; A9270 ×2; J3490

== ENCOUNTER 2018-05-02 09:13 | Emergency (ER) | payer MEDICARE ==
--- NOTE | 2018-05-02 09:43 | ER Document Report ---
ED GI/ - General Chief Complaint: Problem with Urinary Catheter Stated Complaint: CATHETER REMOVAL Time Seen by Provider: 05/02/18 09:33 Notes: The patient is a 73-year-old male, past medical history kidney transplant, COPD , CHF, presents with swelling of his penis after a Felix was placed last week due to urinary retention. He follows with Dr. Pool. He tried to get an appointment at [facility] urology, but his appointment is on May 19. Patient denies nausea, vomiting, testicular pain, hematuria, fevers or headache. TRAVEL OUTSIDE OF THE [place] IN LAST 30 DAYS: No - Related Data Allergies/Adverse Reactions: aspirin [Aspirin] Allergy (Verified 05/02/18 09:15) iron [Iron] Allergy (Verified 05/02/18 09:15) Past Medical History - General Information source: Patient - Social History Smoking Status: Unknown if Ever Smoked Family History: CAD, Hypertension - Past Medical History Cardiac Medical History: Reports: Hx Atrial Fibrillation, Hx Congestive Heart Failure, Hx Coronary Artery Disease, Hx Heart Attack - x2, Hx Hypercholesterolemia, Hx Pulmonary Embolism Denies: Hx Hypertension Pulmonary Medical History: Reports: Hx Asthma, Hx Bronchitis, Hx COPD, Hx Pneumonia, Hx Sleep Apnea Neurological Medical History: Denies: Hx Cerebrovascular Accident, Hx Seizures Endocrine Medical History: Denies: Hx Diabetes Mellitus Type 1, Hx Diabetes Mellitus Type 2 Renal/ Medical History: Reports: Hx End Stage Renal Disease - Patient was previously on hemodialysis prior to kidney transplant., Hx Hemodialysis - No longer on dialysis. Denies: Hx Peritoneal Dialysis Malignancy Medical History: Reports Hx Skin Cancer Musculoskeltal Medical History: Reports Hx Arthritis Psychiatric Medical History: Denies: Hx Depression Past Surgical History: Reports: Hx Cardiac Catheterization, Hx Cardiac Surgery - cabg, Hx Coronary Artery Bypass Graft - 3 vessels on 09/19/2008, Hx Coronary Stent - 10/15/1999, Hx Kidney (Renal Surgery) - kidney transplant, Hx Open Heart Surgery - x 3V, Other - Kidney transplant - Immunizations Hx Diphtheria, Pertussis, Tetanus Vaccination: Yes Hx Pneumococcal Vaccination: 06/25/16 Review of Systems - Review of Systems Notes: REVIEW OF SYSTEMS: CONSTITUTIONAL: -fevers, -chills EENT: -eye pain, -difficulty swallowing, -nasal congestion CARDIOVASCULAR: -chest pain, -syncope. RESPIRATORY: -cough, -SOB GASTROINTESTINAL: -abdominal pain, -nausea, -vomiting, -diarrhea GENITOURINARY: +swollen penis, -dysuria, -hematuria MUSCULOSKELETAL: -back pain, -neck pain SKIN: -rash or skin lesions. HEMATOLOGIC: -easy bruising or bleeding. LYMPHATIC: -swollen, enlarged glands. NEUROLOGICAL: -altered mental status or loss of consciousness, -headache, - neurologic symptoms PSYCHIATRIC: -anxiety, -depression. ALL OTHER SYSTEMS REVIEWED AND NEGATIVE. Physical Exam - Vital signs Vitals: Temp Pulse Resp BP Pulse Ox 97.8 F 90 16 139/63 H 97 05/02/18 09:21 05/02/18 09:21 05/02/18 09:21 05/02/18 09:21 05/02/18 09:21 - Notes Notes: PHYSICAL EXAMINATION: GENERAL: Well-appearing, well-nourished and in no acute distress. HEAD: Atraumatic, normocephalic. EYES: Pupils equal round and reactive to light, extraocular movements intact, sclera anicteric, conjunctiva are normal. ENT: nares patent, oropharynx clear without exudates. Moist mucous membranes. HEART: Regular rate and rhythm without murmurs ABDOMEN: Soft, nontender, normoactive bowel sounds. No guarding, no rebound. No masses appreciated. : Swollen foreskin, felix in place with yellow urine in leg bag, non-tender testicles. SKIN: Warm, Dry, normal turgor, no rashes or lesions noted. Course - Re-evaluation Re-evalutation: After removal of the Felix catheter, the patient urinated 150 mL and he has no post void residual. His creatinine improved from last week to 1.9. His mild foreskin swelling is most likely related to anasarca and is not impeding on his urinary flow. He appears very well. Instructed him to follow-up with Dr. Pool and the urologist. Given strict return precautions and he understands. - Vital Signs Vital signs: Temp Pulse Resp BP Pulse Ox 97.8 F 90 16 139/63 H 97 05/02/18 09:21 05/02/18 09:21 05/02/18 09:21 05/02/18 09:21 05/02/18 09:21 - Laboratory Result Diagrams: 05/02/18 10:10 Laboratory results interpreted by me: 05/02/18 10:10 BUN 74 H Creatinine 1.93 H Est GFR ( Amer) 42 L Est GFR (Non-Af Amer) 34 L Glucose 111 H Direct Bilirubin 0.5 H Albumin 3.2 L Discharge - Discharge Clinical Impression: Encounter for Felix catheter removal, Foreskin swelling Condition: Stable Disposition: HOME, SELF-CARE Additional Instructions: Stay hydrated and follow-up with your cutting machine tender helper and urologist. Return to the ER if you are unable to urinate or you have any other concerns. Prescriptions: Tamsulosin HCl [Flomax 0.4 mg Cap.sr] 0.4 mg PO DAILY #14 cap.sr.24h Forms: Elevated Blood Pressure Referrals: PORSCHE SAPP MD [Primary Care Provider] - Follow up as needed AMY POOL MD [ACTIVE STAFF] - Follow up as needed [facility] [Provider Group] - Follow up as needed
[2018-05-02 11:02] LABS: ALANINE AMINOTRANSFERASE 44 U/L (21-72); ALBUMIN 3.2 g/dL (3.5-5.0); ALKALINE PHOSPHATASE 120 U/L (38-126); ANION GAP 14 (5-19); ASPARTATE AMINO TRANSFERASE 37 U/L (17-59); BILIRUBIN,DIRECT 0.5 mg/dL (0.0-0.4); BILIRUBIN,TOTAL 0.5 mg/dL (0.2-1.3); BLOOD UREA NITROGEN 74 mg/dL (7-20); CALCIUM 8.5 mg/dL (8.4-10.2); CARBON DIOXIDE 25 mmol/L (22-30); CHLORIDE 106 mmol/L (98-107); GLUCOSE 111 mg/dL (75-110); POTASSIUM 4.9 mmol/L (3.6-5.0); SODIUM 144.8 mmol/L (137-145); TOTAL PROTEIN 6.3 g/dL (6.3-8.2)
[2018-05-02 11:53] VITALS: BP 111/53
== END 2018-05-02 11:54 | disposition home or self-care (01) ==
LOC: ER 09:13
DX: T83.9XXA Unspecified complication of genitourinary prosthetic device, implant and graft, initial encounter (principal); N48.29 Other inflammatory disorders of penis; Z94.0 Kidney transplant status; J44.9 Chronic obstructive pulmonary disease, unspecified; I50.9 Heart failure, unspecified; I25.10 Atherosclerotic heart disease of native coronary artery without angina pectoris; I25.2 Old myocardial infarction
CPT/HCPCS: 36415; 80053; 99283

== ENCOUNTER → 2018-05-11 | Outpatient (CLI) | payer MEDICARE ==
--- NOTE | 2018-05-11 10:42 | RADIOLOGY REPORT (SQ) ---
EXAM DESCRIPTION: U/S RETROPERITON (RENAL/AORTA); U/S LTD DUPLEX ART/ANABELLA FLOW COMPLETED DATE/TIME: 05/11/2018 10:20 am REASON FOR STUDY: CHRONIC RENAL FAILURE; CKD/ RT RENAL TRANSPLANT N18.9 CHRONIC KIDNEY DISEASE, UNS PECIFIED COMPARISON: 07/19/2014. TECHNIQUE: Realtime and static grayscale images acquired. Selected color Doppler, velocities and spe ctral images recorded. LIMITATIONS: None. FINDINGS: VIEJAS RIGHT KIDNEY: Small, measuring 5.1 cm. Increased echogenicity of the renal cortex. No solid or suspicious masses. No hydronephrosis. No calcifications. VIEJAS LEFT KIDNEY: Not visualized. TRANSPLANT KIDNEY: Normal size. Normal echogenicity. No solid or suspicious masses. No hydronephrosi s. No calcifications. No perinephric fluid collection. BLADDER: No masses. TRANSPLANT KIDNEY: RENAL ARTERY VELOCITIES: 74 cm/sec. Segmental artery velocity 61 cm/sec. Resistive index 0.76. RENAL VEIN: Color doppler flow present, patent. VELOCITY RATIO: 0.79. Normal waveforms. KIDNEY: Normal size. No significant pathology. BLADDER: Normal. OTHER: No other significant finding. IMPRESSION: 1. UNREMARKABLE ULTRASOUND AND DOPPLER EVALUATION OF THE TRANSPLANT KIDNEY. 2. ATROPHIC VIEJAS RIGHT KIDNEY. NO OTHER ABNORMAL FINDINGS. VIEJAS LEFT KIDNEY NOT VISUALIZED. COMMENT: NORMAL RENAL ARTERY/AORTA VELOCITY RATIO IS LESS THAN OR EQUAL TO 3.5. TECHNICAL DOCUMENTATION: JOB ID: [id number] [email or web address]- All Rights Reserved Reading location - IP/workstation name: [email or web address]
--- NOTE | 2018-05-11 10:42 | RADIOLOGY REPORT (SQ) ---
EXAM DESCRIPTION: U/S RETROPERITON (RENAL/AORTA); U/S LTD DUPLEX ART/ANABELLA FLOW COMPLETED DATE/TIME: 05/11/2018 10:20 am REASON FOR STUDY: CHRONIC RENAL FAILURE; CKD/ RT RENAL TRANSPLANT N18.9 CHRONIC KIDNEY DISEASE, UNS PECIFIED COMPARISON: 07/19/2014. TECHNIQUE: Realtime and static grayscale images acquired. Selected color Doppler, velocities and spe ctral images recorded. LIMITATIONS: None. FINDINGS: HAVASUPAI RIGHT KIDNEY: Small, measuring 5.1 cm. Increased echogenicity of the renal cortex. No solid or suspicious masses. No hydronephrosis. No calcifications. HAVASUPAI LEFT KIDNEY: Not visualized. TRANSPLANT KIDNEY: Normal size. Normal echogenicity. No solid or suspicious masses. No hydronephrosi s. No calcifications. No perinephric fluid collection. BLADDER: No masses. TRANSPLANT KIDNEY: RENAL ARTERY VELOCITIES: 74 cm/sec. Segmental artery velocity 61 cm/sec. Resistive index 0.76. RENAL VEIN: Color doppler flow present, patent. VELOCITY RATIO: 0.79. Normal waveforms. KIDNEY: Normal size. No significant pathology. BLADDER: Normal. OTHER: No other significant finding. IMPRESSION: 1. UNREMARKABLE ULTRASOUND AND DOPPLER EVALUATION OF THE TRANSPLANT KIDNEY. 2. ATROPHIC HAVASUPAI RIGHT KIDNEY. NO OTHER ABNORMAL FINDINGS. HAVASUPAI LEFT KIDNEY NOT VISUALIZED. COMMENT: NORMAL RENAL ARTERY/AORTA VELOCITY RATIO IS LESS THAN OR EQUAL TO 3.5. TECHNICAL DOCUMENTATION: JOB ID: [id number] [employer]- All Rights Reserved Reading location - IP/workstation name: [email or web address]
== END ==
LOC: RAD 09:05
PROVIDERS: ATTEND Urology
DX: N18.9 Chronic kidney disease, unspecified (principal); Z94.0 Kidney transplant status
CPT/HCPCS: 76770; 93976

== ENCOUNTER → 2018-05-14 | Outpatient (CLI) | payer MEDICARE ==
[2018-05-14 08:57] LABS: APPEARANCE,URINE SLIGHTLY-CLOUDY; BILIRUBIN,URINE NEGATIVE (NEGATIVE); COLOR,URINE YELLOW; GLUCOSE, URINE NEGATIVE (NEGATIVE); KETONES,URINE NEGATIVE (NEGATIVE); LEUKOCYTE ESTERASE,URINE NEGATIVE (NEGATIVE); NITRITE,URINE NEGATIVE (NEGATIVE); PROTEIN,URINE NEGATIVE (NEGATIVE); URINE SPECIFIC GRAVITY 1.015; UROBILINOGEN,URINE NEGATIVE mg/dL (<2.0)
[2018-05-14 08:59] LABS: ABSOLUTE BASOPHILS # (AUTO) 0.1 10^3/uL (0.0-0.2); ABSOLUTE EOSINOPHILS # (AUTO) 0.3 10^3/uL (0.0-0.6); ABSOLUTE LYMPHOCYTES (AUTO) 0.8 10^3/uL (0.5-4.7); ABSOLUTE NEUT (AUTO) 5.7 10^3/uL (1.7-8.2); BASOPHILS % (AUTO) 0.8 % (0-2); EOSINOPHILS % (AUTO) 3.7 % (0-6); HEMATOCRIT 31.6 % (37.9-51.0); HEMOGLOBIN 10.3 g/dL (13.5-17.0); MEAN CORPUSCULAR HEMOGLOBIN 28.5 pg (27.0-33.4); MEAN CORPUSCULAR HGB CONC 32.6 g/dL (32.0-36.0); MEAN CORPUSCULAR VOLUME 87 fl (80-97); MONOCYTES % (AUTO) 12.6 % (3-13); PLATELET COUNT 390 10^3/uL (150-450); RED BLOOD COUNT 3.62 10^6/uL (4.35-5.55); RED CELL DISTRIBUTION WIDTH 16.1 % (11.5-14.0); SEGMENTED NEUTROPHILS % (AUTO) 72.9 % (42-78); TOTAL CELLS COUNTED % (AUTO) 100 %; WHITE BLOOD COUNT 7.8 10^3/uL (4.0-10.5)
[2018-05-14 09:21] LABS: ALBUMIN 3.2 g/dL (3.5-5.0); ANION GAP 14 (5-19); BLOOD UREA NITROGEN 53 mg/dL (7-20); CALCIUM 8.4 mg/dL (8.4-10.2); CARBON DIOXIDE 25 mmol/L (22-30); CHLORIDE 106 mmol/L (98-107); GLUCOSE 95 mg/dL (75-110); PHOSPHORUS 5.7 mg/dL (2.5-4.5); SODIUM 145.4 mmol/L (137-145)
[2018-05-15 07:38] LABS: MICROALBUMIN URINE <3.0 ug/mL (Not Estab.)
== END ==
LOC: OD 08:12
PROVIDERS: ATTEND Internal Medicine Nephrology
DX: N18.3 Chronic kidney disease, stage 3 (moderate) (principal); Z94.0 Kidney transplant status; E87.5 Hyperkalemia; D64.9 Anemia, unspecified
CPT/HCPCS: 36415; 80048; 80197; 81001; 82040; 82043; 82306; 82570; 83970; 84100; 85025

== ENCOUNTER → 2018-05-21 | Outpatient (CLI) | payer MEDICARE ==
[2018-05-21 11:28] LABS: APPEARANCE,URINE CLEAR; BILIRUBIN,URINE NEGATIVE (NEGATIVE); COLOR,URINE YELLOW; GLUCOSE, URINE NEGATIVE (NEGATIVE); KETONES,URINE NEGATIVE (NEGATIVE); LEUKOCYTE ESTERASE,URINE NEGATIVE (NEGATIVE); NITRITE,URINE NEGATIVE (NEGATIVE); PROTEIN,URINE NEGATIVE (NEGATIVE); URINE SPECIFIC GRAVITY 1.017; UROBILINOGEN,URINE NEGATIVE mg/dL (<2.0)
[2018-05-21 11:41] LABS: ANION GAP 10 (5-19); BLOOD UREA NITROGEN 52 mg/dL (7-20); CALCIUM 8.5 mg/dL (8.4-10.2); CARBON DIOXIDE 29 mmol/L (22-30); CHLORIDE 102 mmol/L (98-107); GLUCOSE 87 mg/dL (75-110); PHOSPHORUS 3.9 mg/dL (2.5-4.5); POTASSIUM 4.4 mmol/L (3.6-5.0); SODIUM 141.1 mmol/L (137-145)
== END ==
LOC: OD 10:28
PROVIDERS: ATTEND Internal Medicine Nephrology
DX: N17.9 Acute kidney failure, unspecified (principal); N18.3 Chronic kidney disease, stage 3 (moderate); Z94.0 Kidney transplant status
CPT/HCPCS: 36415; 80048; 80197; 81001; 84100

== ENCOUNTER → 2018-08-03 | Outpatient (CLI) | payer MEDICARE ==
[2018-08-03 10:23] LABS: ANION GAP 17 (5-19); BLOOD UREA NITROGEN 118 mg/dL (7-20); CALCIUM 8.9 mg/dL (8.4-10.2); CARBON DIOXIDE 28 mmol/L (22-30); CHLORIDE 98 mmol/L (98-107); GLUCOSE 115 mg/dL (75-110); POTASSIUM 4.2 mmol/L (3.6-5.0); SODIUM 142.5 mmol/L (137-145)
== END ==
LOC: OD 09:08
PROVIDERS: ATTEND Internal Medicine Nephrology
DX: N17.9 Acute kidney failure, unspecified (principal)
CPT/HCPCS: 36415; 80048

== ENCOUNTER 2018-08-04 17:40 | Emergency (ER) | payer MEDICARE ==
--- NOTE | 2018-08-04 18:31 | ER Document Report ---
ED Medical Screen (RME) - General Chief Complaint: Abnormal Lab Results Stated Complaint: KIDNEY ISSUE Time Seen by Provider: 08/04/18 18:04 Notes: Patient with a history of renal transplant and congestive heart failure presents the emergency department after being called by Dr. Pool his vocational examiner being told that he is in acute renal failure. Apparently blood work was done several days ago and showed an increase in his BUN and creatinine and then Dr. Pool had him hold his metolazone, that has been held for the past 2-3 days and then they repeated the BUN and creatinine yesterday and it was 118 and 2.59 respectively, this is worse than it was even a few days ago. Dr. Pool is obviously worried about this worsening renal function. Patient is quite compliant with his transplant medications, she is concerned that there may be something else going on such as congestive heart failure leading to poor perfusion. Additionally patient complains of generalized fatigue, malaise, increasing depression over the worsening renal function as well as intermittent vomiting for several months. TRAVEL OUTSIDE OF THE [place] IN LAST 30 DAYS: No - Related Data Allergies/Adverse Reactions: aspirin [Aspirin] Allergy (Verified 05/02/18 09:15) iron [Iron] Allergy (Verified 05/02/18 09:15) Past Medical History - General Information source: Patient - Social History Chew tobacco use (# tins/day): No Frequency of alcohol use: None Drug Abuse: None - Past Medical History Cardiac Medical History: Reports: Hx Atrial Fibrillation, Hx Congestive Heart Failure, Hx Coronary Artery Disease, Hx Heart Attack - x2, Hx Hypercholesterolemia, Hx Pulmonary Embolism Denies: Hx Hypertension Pulmonary Medical History: Reports: Hx Asthma, Hx Bronchitis, Hx COPD, Hx Pneumonia, Hx Sleep Apnea Neurological Medical History: Denies: Hx Cerebrovascular Accident, Hx Seizures Endocrine Medical History: Denies: Hx Diabetes Mellitus Type 1, Hx Diabetes Mellitus Type 2 Renal/ Medical History: Reports: Hx End Stage Renal Disease - Patient was previously on hemodialysis prior to kidney transplant., Hx Hemodialysis - No longer on dialysis. Denies: Hx Peritoneal Dialysis Malignancy Medical History: Reports Hx Skin Cancer Musculoskeltal Medical History: Reports Hx Arthritis Psychiatric Medical History: Denies: Hx Depression Past Surgical History: Reports: Hx Cardiac Catheterization, Hx Cardiac Surgery - cabg, Hx Coronary Artery Bypass Graft - 3 vessels on 09/19/2008, Hx Coronary Stent - 10/15/1999, Hx Kidney (Renal Surgery) - kidney transplant, Hx Open Heart Surgery - x 3V, Other - Kidney transplant - Immunizations Hx Diphtheria, Pertussis, Tetanus Vaccination: Yes History of Influenza Vaccine for 07/2017 - 12/2017 Season: Yes Influenza Administration Date for 07/2017 - 12/2017 Season: 07/25/17 Review of Systems - Review of Systems Constitutional: See HPI Cardiovascular: See HPI Respiratory: See HPI Gastrointestinal: See HPI Physical Exam - Vital signs Vitals: Temp Pulse Resp BP Pulse Ox 97.6 F 79 20 102/50 L 99 08/04/18 17:50 08/04/18 17:50 08/04/18 17:50 08/04/18 17:50 08/04/18 17:50 - Notes Notes: General: Patient is a bluish discoloration of his skin that is not cyanosis, this is related to the minocycline and sun exposure, patient states this is his baseline. Psych:appears somewhat depressed but generally interacts well Heart: Regular rate and rhythm, no murmurs gallops or rubs Lungs: Diffuse expiratory wheezes however no respiratory distress Course - Vital Signs Vital signs: Temp Pulse Resp BP Pulse Ox 97.6 F 79 20 102/50 L 99 08/04/18 17:50 08/04/18 17:50 08/04/18 17:50 08/04/18 17:50 08/04/18 17:50 Doctor's Discharge - Discharge Referrals: AMY POOL MD [Primary Care Provider] - Follow up as needed
[2018-08-04] MEDS: ALBUTEROL SULFATE 0.083% NEB 2.5 MG/3 ML AMPUL NEB ONE (19:07)
[2018-08-04 19:16] LABS: HEMATOCRIT 32.4 % (37.9-51.0); HEMOGLOBIN 10.3 g/dL (13.5-17.0); MEAN CORPUSCULAR HGB CONC 31.8 g/dL (32.0-36.0); MEAN CORPUSCULAR VOLUME 85 fl (80-97); PLATELET COUNT 420 10^3/uL (150-450); RED BLOOD COUNT 3.81 10^6/uL (4.35-5.55); RED CELL DISTRIBUTION WIDTH 18.1 % (11.5-14.0); WHITE BLOOD COUNT 10.1 10^3/uL (4.0-10.5)
[2018-08-04 19:25] LABS: ALANINE AMINOTRANSFERASE 43 U/L (21-72); ALBUMIN 3.5 g/dL (3.5-5.0); ALKALINE PHOSPHATASE 139 U/L (38-126); ANION GAP 14 (5-19); ASPARTATE AMINO TRANSFERASE 24 U/L (17-59); BILIRUBIN,DIRECT 0.5 mg/dL (0.0-0.4); BILIRUBIN,TOTAL 0.6 mg/dL (0.2-1.3); CALCIUM 8.6 mg/dL (8.4-10.2); CARBON DIOXIDE 27 mmol/L (22-30); CHLORIDE 97 mmol/L (98-107); CREATINE KINASE 109 U/L (55-170); GLUCOSE 130 mg/dL (75-110); POTASSIUM 4.5 mmol/L (3.6-5.0); SODIUM 137.8 mmol/L (137-145); TOTAL PROTEIN 6.6 g/dL (6.3-8.2)
[2018-08-04 19:30] LABS: APPEARANCE,URINE SLIGHTLY-CLOUDY; BILIRUBIN,URINE NEGATIVE (NEGATIVE); COLOR,URINE YELLOW; GLUCOSE, URINE NEGATIVE (NEGATIVE); KETONES,URINE NEGATIVE (NEGATIVE); LEUKOCYTE ESTERASE,URINE TRACE (NEGATIVE); NITRITE,URINE NEGATIVE (NEGATIVE); PROTEIN,URINE NEGATIVE (NEGATIVE); UROBILINOGEN,URINE NEGATIVE mg/dL (<2.0)
[2018-08-04 19:35] LABS: ABSOLUTE LYMPHOCYTES# (MANUAL) 0.3 10^3/uL (0.5-4.7); ABSOLUTE MONOCYTES # (MANUAL) 0.5 10^3/uL (0.1-1.4); ABSOLUTE NEUTROPHILS# (MANUAL) 9.3 10^3/uL (1.7-8.2); BASOPHILS % (MANUAL) 0 % (0-2); EOSINOPHILS % (MANUAL) 0 % (0-6); LYMPHOCYTES % (MANUAL) 3 % (13-45); MONOCYTES % (MANUAL) 5 % (3-13); SEGMENTED NEUTROPHILS % (MAN) 92 % (42-78); TOTAL CELLS COUNTED 100
[2018-08-04 19:36] LABS: BLOOD UREA NITROGEN 123 mg/dL (7-20)
[2018-08-04 19:37] LABS: ANISOCYTOSIS 2+; CREATINE KINASE MB 2.97 ng/mL (<4.55); OVALOCYTES 1+; PLATELET COMMENT ADEQUATE; PLATELET LARGE PRESENT; POIKILOCYTOSIS 1+; POLYCHROMASIA SLIGHT; TEAR DROP CELLS SLIGHT
[2018-08-04 19:40] LABS: TROPONIN I 0.045 ng/mL
--- NOTE | 2018-08-04 20:06 | RADIOLOGY REPORT (SQ) ---
EXAM DESCRIPTION: CHEST 2 VIEWS COMPLETED DATE/TIME: 08/04/2018 7:36 pm REASON FOR STUDY: possible CHF, fatigue, vomiting COMPARISON: 04/10/2018 TECHNIQUE: Frontal and lateral radiographic views of the chest acquired. NUMBER OF VIEWS: Two view. LIMITATIONS: None. FINDINGS: LUNGS AND PLEURA: No pneumothorax. No consolidation or pleural effusion. MEDIASTINUM AND HILAR STRUCTURES: Stable. HEART AND VASCULAR STRUCTURES: Stable. BONES: No acute findings. HARDWARE: CABG. OTHER: No other significant finding. IMPRESSION: NO ACUTE FINDINGS. TECHNICAL DOCUMENTATION: JOB ID: [id number] [email or web address]- All Rights Reserved Reading location - IP/workstation name: [email or web address]
--- NOTE | 2018-08-04 20:43 | ER Document Report ---
ED General - General TRAVEL OUTSIDE OF THE [place] IN LAST 30 DAYS: No <ANGELICA BHAGAT - Last Filed: 08/05/18 06:20> <GT TATE - Last Filed: 08/05/18 07:54> - General Chief Complaint: Abnormal Lab Results Stated Complaint: KIDNEY ISSUE Time Seen by Provider: 08/04/18 18:04 Notes: Patient is a 73-year-old male presenting to the emergency department chief complaint lethargy. Patient is a kidney transplant recipient who was scheduled for an AICD placement today. Routine labs were drawn prior to surgery. These labs showed abnormalities which were then sent to Dr. Owusu, patient's altitude chamber technician. Dr. Owusu repeated labs yesterday continue with abnormalities and suggested patient go to the emergency room. Patient is currently only complaining of being overtired. is in the room with patient states "the last time patient was this tired he needed the kidney transplant." patient denies weakness, lightheadedness, chest pain, shortness of breath, nausea, vomiting, diarrhea, abdominal pain, dysuria, testicular swelling or erythema. Past medical history: COPD, CHF, CAD, A. fib, hypertension, pulmonary embolism x2 Medications: Plavix, Eliquis, Lasix, albuterol, Cardizem, gabapentin, prednisone , Spiriva, Minocycline Allergies: Aspirin, IV iron Surgical history: CABG, kidney transplant (ANGELICA BHAGAT) - Related Data Allergies/Adverse Reactions: aspirin [Aspirin] Allergy (Verified 05/02/18 09:15) iron [Iron] Allergy (Verified 05/02/18 09:15) Past Medical History - General Information source: Patient, Relative - Social History Smoking Status: Former Smoker Chew tobacco use (# tins/day): No Frequency of alcohol use: None Drug Abuse: None Lives with: Family Family History: CAD, Hypertension Patient has suicidal ideation: No Patient has homicidal ideation: No - Past Medical History Cardiac Medical History: Reports: Hx Atrial Fibrillation, Hx Congestive Heart Failure, Hx Coronary Artery Disease, Hx Heart Attack - x2, Hx Hypercholesterolemia, Hx Pulmonary Embolism Denies: Hx Hypertension Pulmonary Medical History: Reports: Hx Asthma, Hx Bronchitis, Hx COPD, Hx Pneumonia, Hx Sleep Apnea Neurological Medical History: Denies: Hx Cerebrovascular Accident, Hx Seizures Endocrine Medical History: Denies: Hx Diabetes Mellitus Type 1, Hx Diabetes Mellitus Type 2 Renal/ Medical History: Reports: Hx End Stage Renal Disease - Patient was previously on hemodialysis prior to kidney transplant., Hx Hemodialysis - No longer on dialysis. Denies: Hx Peritoneal Dialysis Malignancy Medical History: Reports Hx Skin Cancer Musculoskeletal Medical History: Reports Hx Arthritis Psychiatric Medical History: Denies: Hx Depression Past Surgical History: Reports: Hx Cardiac Catheterization, Hx Cardiac Surgery - cabg, Hx Coronary Artery Bypass Graft - 3 vessels on 09/19/2008, Hx Coronary Stent - 10/15/1999, Hx Kidney (Renal Surgery) - kidney transplant, Hx Open Heart Surgery - x 3V, Other - Kidney transplant - Immunizations Hx Diphtheria, Pertussis, Tetanus Vaccination: Yes Hx Pneumococcal Vaccination: 06/25/16 <ANGELICA BHAGAT - Last Filed: 08/05/18 06:20> Review of Systems - Review of Systems Constitutional: See HPI EENT: See HPI Cardiovascular: See HPI Respiratory: See HPI Gastrointestinal: See HPI Genitourinary: See HPI Male Genitourinary: No symptoms reported Musculoskeletal: See HPI Skin: See HPI Hematologic/Lymphatic: See HPI Neurological/Psychological: See HPI <ANGELICA BHAGAT - Last Filed: 08/05/18 06:20> Physical Exam <ANGELICA BHAGAT - Last Filed: 08/05/18 06:20> <GT TATE - Last Filed: 08/05/18 07:54> - Vital signs Vitals: Temp Pulse Resp BP Pulse Ox 97.6 F 79 20 102/50 L 99 08/04/18 17:50 08/04/18 17:50 08/04/18 17:50 08/04/18 17:50 08/04/18 17:50 - Notes Notes: GENERAL: Alert, interacts well. No acute distress. HEAD: Normocephalic, atraumatic. EYES: Pupils equal, round, and reactive to light. Extraocular movements intact. ENT: Oral mucosa moist, tongue midline. NECK: Full range of motion. Supple. Trachea midline. LUNGS: Scant expiratory wheeze intermittent to auscultation bilaterally all freeman, no rales, or rhonchi. No respiratory distress. HEART: Irregular rate and rhythm ABDOMEN: Soft, non-tender. Non-distended. Bowel sounds present in all 4 quadrants. Well-healed surgical scar right lower quadrant. EXTREMITIES: Moves all 4 extremities spontaneously. normal radial and dorsalis pedis pulses bilaterally. +2 pitting edema mid calf bilateral legs. BACK: no cervical, thoracic, lumbar midline tenderness. NEUROLOGICAL: Alert and oriented x3. Normal speech. PSYCH: Normal affect, normal mood. SKIN: Warm, dry, slight cyanotic hue. Patient states at baseline per medication regimen and sun exposure. (ANGELICA BHAGAT) Course - Laboratory Result Diagrams: 08/04/18 18:55 08/05/18 02:55 <ANGELICA BHAGAT - Last Filed: 08/05/18 06:20> - Laboratory Result Diagrams: 08/04/18 18:55 08/05/18 02:55 <GT TATE - Last Filed: 08/05/18 07:54> - Re-evaluation Re-evalutation: 08/04/18 20:39 Discussed patient presentation and lab results with Dr. Lorenzo who requests transfer to [facility]. States she does not think this is a congestive heart failure issue. States the patient should be where his transplant team is. Discussed with patient transfer to [facility]. Discussed case, chest x-ray results, labs, PE with Dr. Clair Castro at [facility]. Dr. Castro requests that I run this case by transplant team due to patient's history. States if transplant team does not think they need to be involved in the patient care she will accept admission. 08/04/18 22:[address] Patel Transplant team at [facility] who thinks the Pt. should be admitted to Nephrology. Told him Dr. Rere Castro stated she would accept the pt. is Transplant did think they needed to be involved in care. (ANGELICA BHAGAT) 08/05/18 07:15 Assumed care of the patient his vitals are stable his creatinine remains elevated but a little bit lower than it was last evening. Breakfast has been ordered for him he wants coffee with cream and sugar. Call to [facility] and he is waiting for a 3 S. bed. (GT TATE) - Vital Signs Vital signs: Temp Pulse Resp BP Pulse Ox 98.1 F 91 15 111/63 97 08/04/18 22:09 08/04/18 22:09 08/05/18 07:01 08/05/18 07:01 08/05/18 07:01 - Laboratory Laboratory results interpreted by me: 08/04/18 08/04/18 08/04/18 18:55 18:55 18:55 RBC 3.81 L Hgb 10.3 L Hct 32.4 L MCHC 31.8 L RDW 18.1 H Seg Neuts % (Manual) 92 H Lymphocytes % (Manual) 3 L Abs Neuts (Manual) 9.3 H Abs Lymphs (Manual) 0.3 L Chloride 97 L BUN 123 H Creatinine 2.90 H Est GFR ( Amer) 26 L Est GFR (Non-Af Amer) 22 L Glucose 130 H Direct Bilirubin 0.5 H Alkaline Phosphatase 139 H NT-Pro-B Natriuret Pep 4760 H Total Protein Albumin Ur Leukocyte Esterase 08/04/18 08/05/18 18:55 02:55 RBC Hgb Hct MCHC RDW Seg Neuts % (Manual) Lymphocytes % (Manual) Abs Neuts (Manual) Abs Lymphs (Manual) Chloride BUN 118 H Creatinine 2.88 H Est GFR ( Amer) 26 L Est GFR (Non-Af Amer) 22 L Glucose 129 H Direct Bilirubin Alkaline Phosphatase NT-Pro-B Natriuret Pep Total Protein 5.5 L Albumin 2.9 L Ur Leukocyte Esterase TRACE H Discharge - Discharge Admitting Provider: Dr. Clair Castro, Nephrology <ANGELICA BHAGAT - Last Filed: 08/05/18 06:20> <GT TATE - Last Filed: 08/05/18 07:54> - Discharge Clinical Impression: Kidney failure Qualifiers: Renal failure chronicity: acute on chronic Acute renal failure type: unspecified Chronic kidney disease stage: unspecified stage Qualified Code(s): N17.9 - Acute kidney failure, unspecified Congestive heart failure Qualifiers: Heart failure type: other Qualified Code(s): I50.9 - Heart failure, unspecified Condition: Stable Disposition: [facility] Referrals: AMY OWUSU MD [Primary Care Provider] - Follow up as needed
--- NOTE | 2018-08-04 22:34 | EKG REPORT ---
SEVERITY:- ABNORMAL ECG - WANDERING PACEMAKER CONSIDER ANTEROSEPTAL INFARCT BORDERLINE PROLONGED QT INTERVAL : Confirmed by: Evelyn Ingram MD 04-Aug-2018 22:34:21
[2018-08-05] MEDS: ALBUTEROL SULFATE 0.083% NEB 2.5 MG/3 ML AMPUL NEB ONE (00:09)
[2018-08-05 03:21] LABS: ALANINE AMINOTRANSFERASE 37 U/L (21-72); ALBUMIN 2.9 g/dL (3.5-5.0); ALKALINE PHOSPHATASE 120 U/L (38-126); ANION GAP 14 (5-19); ASPARTATE AMINO TRANSFERASE 19 U/L (17-59); BILIRUBIN,DIRECT 0.3 mg/dL (0.0-0.4); BILIRUBIN,TOTAL 0.3 mg/dL (0.2-1.3); CALCIUM 8.5 mg/dL (8.4-10.2); CARBON DIOXIDE 26 mmol/L (22-30); CHLORIDE 99 mmol/L (98-107); GLUCOSE 129 mg/dL (75-110); POTASSIUM 3.7 mmol/L (3.6-5.0); SODIUM 139.3 mmol/L (137-145); TOTAL PROTEIN 5.5 g/dL (6.3-8.2)
[2018-08-05 03:28] LABS: BLOOD UREA NITROGEN 118 mg/dL (7-20)
[2018-08-05] MEDS: OXYCODONE-ACETAMINOPHEN 5-325 MG TABLET PO ONE (13:51)
--- NOTE | 2018-08-05 14:25 | RADIOLOGY REPORT (SQ) ---
EXAM DESCRIPTION: U/S LTD DUPLEX ART/ANABELLA FLOW COMPLETED DATE/TIME: 08/05/2018 1:40 pm REASON FOR STUDY: increased creatitnine and BUN, include bladder transplant kidney, evaluate for uri nary outflow obstruction or vascular compromise COMPARISON: 05/11/2018 TECHNIQUE: Realtime and static grayscale images acquired of the [facility] [place] and right lower qu adrant transplant kidney. Selected color Doppler, velocities and spectral images recorded. LIMITATIONS: None. FINDINGS: RIGHT LOWER QUADRANT TRANSPLANT KIDNEY: RENAL ARTERY VELOCITIES: At the hilum, 116 cm/sec. Segmental artery velocity 69 cm/sec. RENAL VEIN: Color doppler flow present, patent. VELOCITY RATIO: 1.9. Normal waveforms. Resistive indices range from 0.78 to 0.81 which is elevated. Question acute tubular necrosis. KIDNEY: 9.2 cm in length with cortical thinning along the upper pole right kidney. No hydronephrosi s or hydroureter. Normal renal vein flow [place] right kidney is 6 cm in long with diffuse increased cortical echogenicity and cortical thinnin g. No hydronephrosis. Left kidney not well seen. BLADDER: Distended with urine. No ureteral jets are identified. OTHER: No other significant finding. IMPRESSION: Increased resistive index right lower quadrant transplant kidney, question acute tubular necrosis. No transplant kidney hydronephrosis or perinephric fluid collections. Normal renal arter y velocities suggest against renal artery stenosis COMMENT: NORMAL RENAL ARTERY/AORTA VELOCITY RATIO IS LESS THAN OR EQUAL TO 3.5. TECHNICAL DOCUMENTATION: JOB ID: [id number] [employer]- All Rights Reserved Reading location - IP/workstation name: [facility]
--- NOTE | 2018-08-05 15:45 | PDOC CONSULTATION ---
Consultation Consult Date: 08/05/18 Attending physician:: GT TATE Consult reason:: I was asked to see the patient because of worsening kidney function. History of Present Illness Admission Date/PCP: AMY POOL MD History of Present Illness: JOSE GOMEZ JR is a 73 year old male known to me with history of chronic kidney disease, status post living related kidney transplant in 2010, history of urinary retention, coronary artery disease, COPD, CHF, pulmonary nocardiosis , and atrial fibrillation whom I have recommended to go to the emergency room yesterday because of worsening kidney function. About a week ago the patient called my office because his laceworker, Dr. Rae plan to place a pacemaker/defibrillator and preoperatively obtain a basic metabolic panel showing worsening of his kidney function. On July 28 his BUN was 1O1 and his creatinine was 2.4, EGFR of 28. Prior to that he has a BUN of 54 and a creatinine of 1.75. When I saw him in the clinic on July 18 he is lower extremity edema who was significantly is worse so I started him on metolazone 2.5 mg once a day in addition to his usual Bumex dose. I thought that the increase in his BUN and creatinine on July 28 was through today so I held his metolazone about 3 days ago. I then instructed him to have a repeat blood work which was done yesterday. The blood work from yesterday showed a BUN of 118 and a creatinine of 2.59 with estimated GFR of 25 which was worse. He also informed by staff that his leg swelling is not any change. I then recommended that he goes to the emergency room for further evaluation. His pacemaker defibrillator placement is supposed to be yesterday which obviously needed to be canceled. Patient told me that he feels tired and with a little bit of nausea and unchanged shortness of breath. He claims he has some appetite although he is not really eating much here while in the emergency room. He denies any vomiting , chest pains nor fever. He denies any pain over his kidney transplant graft. He has some usual cough here and there. He claims that he is making urine and on record here there was a 650 mL urine output that was recorded. Today he only made urine 1 which is around 100 cc so far. His leg swelling seems better when he is laying down. Unfortunately he missed evening medication last night while he was here in the emergency room. Patient's blood pressure remains to be on his usual lowish blood pressure but not terribly low. He otherwise does not have any other complaints. Since there was no obvious precipitating factor of this worsening kidney function, I requested the emergency room physician last night to transfer him to his kidney transplant center at [facility] for which he is currently accepted but waiting for a bed. Meanwhile I thought of working him up further while here and waiting for a bed in [place]. Since the patient has history of urinary retention in the past I asked for a kidney ultrasound which showed a distended bladder. Currently the patient seems to be hemodynamically stable. Past Medical History Cardiac Medical History: Reports: Atrial Fibrillation, CHF-Diastolic, CHF- Systolic, Coronary Artery Disease, Hyperlipidemia, Myocardial Infarction - x2, Pulmonary Embolism, Other - Chronic hypotension Pulmonary Medical History: Reports: Asthma, Bronchitis, Chronic Obstructive Pulmonary Disease (COPD), Pneumonia, Sleep Apnea, Other - Pulmonary nocardiosis on chronic minocycline for maintenance Renal/ Medical History: Reports: Benign Prostatic Hyperplasia - With known urinary retention, End Stage Renal Disease - Patient was previously on hemodialysis prior to kidney transplant., Renal Transplant, Secondary Hyperparathyroidism, Other - Had a living donor kidney transplantation on 2010 from his daughter Renal/ History Note: 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 Malignancy Medical History: Reports: Skin Cancer Musculoskeltal Medical History: Reports: Arthritis Hematology Medical History: Reports Anemia of Chronic Kidney Disease Past Surgical History Past Surgical History: Reports: Cardiac Catheterization, Coronary Artery Bypass Graft - 3 vessels on 09/19/2008, Coronary Stent - 10/15/1999, Dialysis Access Surgery [facility] - [place] [address] [place], Other - Kidney transplant, cataract extraction, skin cancer excision Social History Information Source: Patient Lives with: Family Smoking Status: Former Smoker Frequency of Alcohol Use: None Hx Recreational Drug Use: No Drugs: None Hx Prescription Drug Abuse: No Family History Family History: CAD - Brother, DM - Brother, Hypertension - Brother, Other - Father had history of tuberculosis Parental Family History Reviewed: Yes Children Family History Reviewed: Unknown Sibling(s) Family History Reviewed.: Yes Medication/Allergy Home Medications: Albuterol Sulfate [Proventil Hfa] 2 puff IH Q6HP PRN 03/02/18 Apixaban [Eliquis 5 mg Tablet] 5 mg PO Q12 03/02/18 Atorvastatin Calcium 40 mg PO DAILY 03/02/18 Budesonide/Formoterol Fumarate [Symbicort 160-4.5 Mcg Inhaler] 1 puff IH Q12 07/12 Cetirizine HCl [All Day Allergy] 10 mg PO DAILY 03/02/18 Clopidogrel Bisulfate [Clopidogrel] 75 mg PO DAILY 03/02/18 Diltiazem HCl 180 mg PO DAILY 03/02/18 Docusate Sodium 100 mg PO BID 03/02/18 Ergocalciferol (Vitamin D2) [Vitamin D2] 50,000 unit PO [id number] 03/02/18 Gabapentin 300 mg PO DAILY 03/02/18 Gabapentin [Neurontin 300 mg Capsule] 300 mg PO QHS 03/02/18 Gabapentin [Neurontin 300 mg Capsule] 600 mg PO DAILY@1500 03/02/18 Midodrine HCl [Proamatine 5 mg Tablet] 5 mg PO DAILY 03/02/18 Minocycline HCl 100 mg PO DAILY 03/02/18 Mycophenolate Sodium [Mycophenolic Acid] 360 mg PO TID 03/02/18 Oxycodone HCl/Acetaminophen [Oxycodone-Acetaminophen 5-325] 1 each PO Q4HP PRN 03/02/18 Prednisone 5 mg PO DAILY 03/02/18 Promethazine HCl 25 mg PO Q4HP PRN 03/02/18 Ropinirole HCl [Requip] 1 mg PO BID 03/02/18 Ropinirole HCl [Requip] 2 mg PO QHS 03/02/18 Tacrolimus [Prograf] 1 mg PO BID 03/02/18 Tiotropium [place] [Spiriva] 18 mcg IH DAILY 03/02/18 Magnesium Oxide [Mag-Ox 400 mg Tablet] 400 mg PO DAILY tablet 03/05/18 Tamsulosin HCl [Flomax 0.4 mg Cap.sr] 0.4 mg PO DAILY #14 cap.sr.24h 04/26/18 Bumetanide [Bumex 1 mg Tablet] 2 mg PO DAILY 08/05/18 Calcitriol [Rocaltrol] 0.25 mcg PO ASDIR PRN 08/05/18 Pantoprazole Sodium [Protonix] 40 mg PO DAILY 08/05/18 Allergies/Adverse Reactions: aspirin [Aspirin] Allergy (Verified 05/02/18 09:15) iron [Iron] Allergy (Verified 05/02/18 09:15) Review of Systems All systems: reviewed and no additional remarkable complaints except as stated Review of Systems: Constitutional: ABSENT: chills, fever(s), headache(s), weight gain, weight loss ; admits fatigue Eyes: ABSENT: visual disturbances Ears: ABSENT: hearing changes Cardiovascular: ABSENT: chest pain, orthropnea, palpitations; positive edema and dyspnea on exertion Respiratory: ABSENT: Hemoptysis; positive cough and dyspnea Gastrointestinal: ABSENT: abdominal pain, constipation, diarrhea, hematemesis, hematochezia, vomiting, positive nausea Genitourinary: ABSENT: dysuria, hematuria Musculoskeletal: ABSENT: joint swelling Integumentary: ABSENT: rash, wounds; chronic grayish discoloration of the skin in his upper and lower extremities due to minocycline Neurological: ABSENT: abnormal gait, abnormal speech, confusion, dizziness, focal weakness, numbness, syncope Psychiatric: ABSENT: anxiety, depression Endocrine: ABSENT: cold intolerance, heat intolerance, polydipsia, polyuria Hematologic/Lymphatic: ABSENT: easy bleeding, easy bruising, lymphadenopathy Physical Exam Vital Signs: Temp Pulse Resp BP Pulse Ox 98.1 F 91 12 110/50 L 98 08/04/18 22:09 08/04/18 22:09 08/05/18 15:01 08/05/18 15:01 08/05/18 15:01 Intake & Output 08/04/18 08/05/18 08/06/18 06:59 06:59 06:59 Output Total 650 Balance -650 Weight 75.4 kg Exam: General appearance: No acute distress, cooperative, well-developed, well- nourished; Head exam: PRESENT: atraumatic, normocephalic Eye exam: PRESENT: Conjunctiva slightly pale, EOMI, PERRLA. ABSENT: conjunctival injection, scleral icterus Mouth exam: PRESENT: moist, neck supple, tongue midline Neck exam: PRESENT: full ROM. ABSENT: carotid bruit, JVD, lymphadenopathy, thyromegaly Respiratory exam: PRESENT: clear to auscultation bilaterally. ABSENT: rales, rhonchi, stridor, wheezes Cardiovascular exam: PRESENT: Irregularly irregular heart rhythm, +S1, +S2. ABSENT: systolic murmur Pulses: PRESENT: normal radial pulses, normal dorsalis pedis pulses GI/Abdominal exam: PRESENT: normal bowel sounds, soft. Right kidney graft palpable without any tenderness or bruit ABSENT: guarding, mass, tenderness Rectal exam: Deferred Extremities exam: PRESENT: full ROM. Admits lower extremity edema especially when on his feet a lot ABSENT: calf tenderness Musculoskeletal: PRESENT: full ROM. ABSENT: deformity Neurological exam: PRESENT: alert, Awake, Oriented to person, Oriented to place , Oriented to time, reflexes normal, CN II-XII grossly intact. ABSENT: motor sensory deficit Psychiatric exam: PRESENT: appropriate affect, normal mood. ABSENT: homicidal ideation, suicidal ideation Skin exam: PRESENT: intact, dry, warm. ABSENT: rash Results Laboratory Results: 08/04/18 18:55 08/05/18 02:55 08/04/18 08/04/18 08/04/18 18:55 18:55 18:55 WBC 10.1 RBC 3.81 L Hgb 10.3 L Hct 32.4 L MCV 85 MCH 27.0 MCHC 31.8 L RDW 18.1 H Plt Count 420 Seg Neutrophils % Not Reportable Lymphocytes % Not Reportable Monocytes % Not Reportable Eosinophils % Not Reportable Basophils % Not Reportable Absolute Neutrophils Not Reportable Absolute Lymphocytes Not Reportable Absolute Monocytes Not Reportable Absolute Eosinophils Not Reportable Absolute Basophils Not Reportable Sodium 137.8 Potassium 4.5 Chloride 97 L Carbon Dioxide 27 Anion Gap 14 BUN 123 H Creatinine 2.90 H Est GFR ( Amer) 26 L Est GFR (Non-Af Amer) 22 L Glucose 130 H Calcium 8.6 Total Bilirubin 0.6 AST 24 ALT 43 Alkaline Phosphatase 139 H Total Protein 6.6 Albumin 3.5 Urine Color YELLOW Urine Appearance SLIGHTLY-CLOUDY Urine pH 5.0 Ur Specific [place] 1.010 Urine Protein NEGATIVE Urine Glucose (UA) NEGATIVE Urine Ketones NEGATIVE Urine Blood NEGATIVE Urine Nitrite NEGATIVE Ur Leukocyte Esterase TRACE H Urine WBC (Auto) 4 Urine RBC (Auto) 1 08/05/18 02:55 WBC RBC Hgb Hct MCV MCH MCHC RDW Plt Count Seg Neutrophils % Lymphocytes % Monocytes % Eosinophils % Basophils % Absolute Neutrophils Absolute Lymphocytes Absolute Monocytes Absolute Eosinophils Absolute Basophils Sodium 139.3 Potassium 3.7 Chloride 99 Carbon Dioxide 26 Anion Gap 14 BUN 118 H Creatinine 2.88 H Est GFR ( Amer) 26 L Est GFR (Non-Af Amer) 22 L Glucose 129 H Calcium 8.5 Total Bilirubin 0.3 AST 19 ALT 37 Alkaline Phosphatase 120 Total Protein 5.5 L Albumin 2.9 L Urine Color Urine Appearance Urine pH Ur Specific [place] Urine Protein Urine Glucose (UA) Urine Ketones Urine Blood Urine Nitrite Ur Leukocyte Esterase Urine WBC (Auto) Urine RBC (Auto) 08/04/18 08/04/18 08/04/18 18:55 18:55 23:21 Creatine Kinase 109 CK-MB (CK-2) 2.97 Troponin I 0.045 0.042 NT-Pro-B Natriuret Pep 4760 H Impressions: Chest X-Ray 08/04/18 18:23 IMPRESSION: NO ACUTE FINDINGS. Vascular Ultrasound 08/05/18 11:59 IMPRESSION: Increased resistive index right lower quadrant transplant kidney, question acute tubular necrosis. No transplant kidney hydronephrosis or perinephric fluid collections. Normal renal artery velocities suggest against renal artery stenosis. Positive distended bladder Assessment & Plan - Diagnosis (1) Acute kidney injury superimposed on chronic kidney disease Is this a current diagnosis for this admission?: Yes Plan: No only obvious cause of worsening of the patient's kidney function is acute bladder outlet obstruction due to urinary retention in a patient with known BPH. A Rapp catheter has just been placed and we are able to obtain 675 mL of urine. We will repeat patient's kidney function in the next few hours and see if this will improve his kidney function. Nevertheless if the patient's kidney function is not improved after Rapp catheter insertion there might be some other causes of worsening of kidney function related to his kidney transplant. (2) Bladder outlet obstruction Is this a current diagnosis for this admission?: Yes Plan: With urinary retention and BPH currently with Rapp catheter. Patient has been following up with the urologist as an outpatient. If he gets better and kidney function improved he may need to go home with indwelling Rapp catheter. (3) Transplanted kidney Is this a current diagnosis for this admission?: Yes Plan: Continue her antirejection medications. (4) Anemia of chronic disease Is this a current diagnosis for this admission?: Yes (5) Chronic hypotension Is this a current diagnosis for this admission?: Yes Plan: Patient taking ProAmatine. (6) CAD (coronary artery disease) Qualifiers: Coronary Disease-Associated Artery/Lesion type: unspecified vessel or lesion type [place] vs. transplanted heart: [place] heart Associated angina: angina presence unspecified Qualified Code(s): I25.10 - Atherosclerotic heart disease of [place] coronary artery without angina pectoris Is this a current diagnosis for this admission?: Yes (7) Immunosuppressed status Is this a current diagnosis for this admission?: Yes - Notes Notes: Thank you very much for this consultation. If the patient's kidney function starts improving with Rapp catheter infection and relief of bladder L with obstruction and patient may then need to be transferred anymore. However if we do not see any improvement yet in the [facility] kidney transplant team has a bed for him then by all means it would be worthwhile for him to be evaluated for some other causes of acute kidney injury and a kidney transplant patient. - Time Time Spent: Greater than 70 Minutes Medications reviewed and adjusted accordingly: Yes
[2018-08-05] MEDS: NYSTATIN 500000 UNIT/5 ML UDCUP PO SCH (18:03)
[2018-08-05] MEDS: IPRATROPIUM/ALBUTEROL 0.5-2.5 MG/3 ML AMPUL NEB ONE ×2 (18:03→20:41)
[2018-08-05 19:57] LABS: ANION GAP 14 (5-19); CALCIUM 8.4 mg/dL (8.4-10.2); CARBON DIOXIDE 27 mmol/L (22-30); CHLORIDE 95 mmol/L (98-107); GLUCOSE 188 mg/dL (75-110); POTASSIUM 4.3 mmol/L (3.6-5.0)
[2018-08-05 20:06] LABS: BLOOD UREA NITROGEN 121 mg/dL (7-20)
--- NOTE | 2018-08-05 20:09 | RADIOLOGY REPORT (SQ) ---
EXAM DESCRIPTION: CHEST SINGLE VIEW COMPLETED DATE/TIME: 08/05/2018 7:38 pm REASON FOR STUDY: wheezing COMPARISON: 08/04/2018 TECHNIQUE: Single frontal radiographic view of the chest acquired. NUMBER OF VIEWS: One view. LIMITATIONS: None. FINDINGS: LUNGS AND PLEURA: No pneumothorax. No consolidation or pleural effusion. Similar emphysem a and chronic interstitial changes. MEDIASTINUM AND HILAR STRUCTURES: Stable. HEART AND VASCULAR STRUCTURES: Stable. BONES: No acute findings. HARDWARE: CABG. OTHER: No other significant finding. IMPRESSION: NO ACUTE FINDINGS. TECHNICAL DOCUMENTATION: JOB ID: [id number] [place]-72 2010 [employer]- All Rights Reserved Reading location - IP/workstation name: [email or web address]
[2018-08-05] MEDS: PREDNISONE 20 MG TABLET PO ONE (20:40)
[2018-08-05 20:47] VITALS: BP 110/68
--- NOTE | 2018-08-05 20:52 | ER Document Report ---
Doctor's Note Notes: 08/05/18 19:20 Bedside shift report was received from Volodymyr Dixon NP. Patient is alert, oriented and anxious sitting up in bed with at bedside. Patient's skin color is beck and pale, dayshift staff members as well as state this is normal for him. Patient with diffuse inspiratory and expiratory wheezing. Patient is hypotensive and tachycardic, BP 89/52 HR 117. Repeat BP slightly improved with SPB in the upper 90's. Volodymyr Dixon NP is ordering repeat chest xray, duoneb and prednisone. Patient has been taking his own home mediations all day per dayshift staff, unknown exactly what he has taken. 08/05/18 20:[address] Holland regarding this patient, he will do a bedside evaluation prior to patients departure due to length of time this patient has been in the department. 08/05/18 20:55 I have made multiple repeat evaluations of this patient since coming on shift, lung sounds currently improving after administration of DuoNeb. Hypotension resolved. Still mildly tachycardic at 105. Discussed repeat labs with patient and patient continues to be in agreement with transferring to [facility]. Transport should be here anytime. 08/05/18 21:01 [facility] has arrived to parts picker the patient. Patient stable for transport at this time.
[2018-08-05] MEDS: ROPINIROLE HCL 1 MG TABLET PO ONE (21:06)
== END 2018-08-05 21:26 | disposition short-term general hospital (02) ==
LOC: ER 17:40
DX: N17.9 Acute kidney failure, unspecified (principal); I13.0 Hypertensive heart and chronic kidney disease with heart failure and stage 1 through stage 4 chronic kidney disease, or unspecified chronic kidney disease; N18.9 Chronic kidney disease, unspecified; I11.0 Hypertensive heart disease with heart failure; I50.9 Heart failure, unspecified; Z94.0 Kidney transplant status; R00.0 Tachycardia, unspecified; I95.89 Other hypotension; N40.1 Benign prostatic hyperplasia with lower urinary tract symptoms; N13.8 Other obstructive and reflux uropathy; R33.8 Other retention of urine; A43.0 Pulmonary nocardiosis; M31.31 Wegener's granulomatosis with renal involvement; D63.8 Anemia in other chronic diseases classified elsewhere; I25.10 Atherosclerotic heart disease of native coronary artery without angina pectoris; R25.2 Cramp and spasm; J44.9 Chronic obstructive pulmonary disease, unspecified; I48.91 Unspecified atrial fibrillation; F32.9 Major depressive disorder, single episode, unspecified; K14.8 Other diseases of tongue; K13.0 Diseases of lips; I25.2 Old myocardial infarction; Z85.828 Personal history of other malignant neoplasm of skin; Z95.5 Presence of coronary angioplasty implant and graft; Z95.1 Presence of aortocoronary bypass graft; Z86.711 Personal history of pulmonary embolism; Z79.899 Other long term (current) drug therapy; Z87.891 Personal history of nicotine dependence; Z82.49 Family history of ischemic heart disease and other diseases of the circulatory system
CPT/HCPCS: 93005; 94640 ×2; 99285; 51702; 36415; 82553; 82550; 83735; 85025; 80048; 80053; 81001; 84484; 83880; 71046; 71045; 93976; 93010; A9270 ×6; J7512; J7620

== ENCOUNTER → 2018-08-12 | Outpatient (CLI) | payer MEDICARE | LOC: OD 09:51 | PROVIDERS: ATTEND Internal Medicine Nephrology | DX: Z94.0 Kidney transplant status (principal); R69 Illness, unspecified | CPT/HCPCS: 36415; 80197 ==

== ENCOUNTER 2018-08-19 09:31 | Outpatient (CLI) | payer MEDICARE ==
[~2018-08-19 09:31] MED LIST: FERRIC CARBOXYMALTOSE 750 MG in NORMAL SALINE 100 ML IV PRN
[2018-08-19 10:18] VITALS: BP 117/58
== END 2018-08-19 11:53 | disposition home or self-care (01) ==
LOC: II 09:31 → 5TH 09:32 → II 11:53
PROVIDERS: ATTEND Internal Medicine Nephrology
PROC: 3E033GC Introduction of Other Therapeutic Substance into Peripheral Vein, Percutaneous Approach (ICD-10-PCS; principal; 2018-08-19)
DX: D50.9 Iron deficiency anemia, unspecified (principal); N18.3 Chronic kidney disease, stage 3 (moderate)
CPT/HCPCS: 96367; J1439; 96365

== ENCOUNTER 2018-08-26 09:19 | Outpatient (CLI) | payer MEDICARE ==
[2018-08-26 09:43] VITALS: BP 110/61
== END 2018-08-26 11:00 | disposition home or self-care (01) ==
LOC: II 09:19 → 5TH 09:19 → II 11:00
PROVIDERS: ATTEND Internal Medicine Nephrology
PROC: 3E033GC Introduction of Other Therapeutic Substance into Peripheral Vein, Percutaneous Approach (ICD-10-PCS; principal; 2018-08-26)
DX: D50.9 Iron deficiency anemia, unspecified (principal); N18.3 Chronic kidney disease, stage 3 (moderate)
CPT/HCPCS: 96365; J1439

== ENCOUNTER → 2018-09-01 | Outpatient (CLI) | payer MEDICARE ==
[2018-09-01 11:13] LABS: ABSOLUTE BASOPHILS # (AUTO) 0.1 10^3/uL (0.0-0.2); ABSOLUTE EOSINOPHILS # (AUTO) 0.4 10^3/uL (0.0-0.6); ABSOLUTE LYMPHOCYTES (AUTO) 0.7 10^3/uL (0.5-4.7); ABSOLUTE MONOCYTES (AUTO) 1.2 10^3/uL (0.1-1.4); ABSOLUTE NEUT (AUTO) 6.7 10^3/uL (1.7-8.2); EOSINOPHILS % (AUTO) 3.9 % (0-6); HEMATOCRIT 29.8 % (37.9-51.0); HEMOGLOBIN 9.4 g/dL (13.5-17.0); LYMPHOCYTES % (AUTO) 7.8 % (13-45); MEAN CORPUSCULAR HEMOGLOBIN 27.7 pg (27.0-33.4); MEAN CORPUSCULAR HGB CONC 31.4 g/dL (32.0-36.0); MONOCYTES % (AUTO) 13.4 % (3-13); PLATELET COUNT 370 10^3/uL (150-450); RED BLOOD COUNT 3.38 10^6/uL (4.35-5.55); RED CELL DISTRIBUTION WIDTH 21.1 % (11.5-14.0); SEGMENTED NEUTROPHILS % (AUTO) 73.9 % (42-78); TOTAL CELLS COUNTED % (AUTO) 100 %
[2018-09-01 11:14] LABS: MEAN CORPUSCULAR VOLUME 88 fl (80-97)
[2018-09-01 11:21] LABS: ANION GAP 13 (5-19); BLOOD UREA NITROGEN 37 mg/dL (7-20); CALCIUM 8.2 mg/dL (8.4-10.2); CARBON DIOXIDE 29 mmol/L (22-30); CHLORIDE 101 mmol/L (98-107); GLUCOSE 95 mg/dL (75-110); POTASSIUM 4.6 mmol/L (3.6-5.0)
[2018-09-01 12:38] LABS: IRON(TIBC) 32.5 ug/dL (49-181)
== END ==
LOC: OD 10:11
PROVIDERS: ATTEND Internal Medicine Nephrology
DX: Z94.0 Kidney transplant status (principal); N18.3 Chronic kidney disease, stage 3 (moderate); D50.9 Iron deficiency anemia, unspecified; D64.9 Anemia, unspecified; F50.9 Eating disorder, unspecified
CPT/HCPCS: 36415; 80048; 80197; 82728; 83540; 83550; 85025

== ENCOUNTER → 2018-09-08 | Outpatient (CLI) | payer MEDICARE ==
--- NOTE | 2018-09-08 16:35 | RADIOLOGY REPORT (SQ) ---
EXAM DESCRIPTION: U/S EXTREMITY NONVASCULAR COMP COMPLETED DATE/TIME: 09/08/2018 3:30 pm REASON FOR STUDY: R22.31 LOCALIZED SWELLING, MASS AND LUMP, RIGHT UPPER LIMB R22.31 LOCALIZED SWELL ING, MASS AND LUMP, RIGHT UPPER LIMB L53.9 ERYTHEMATOUS CONDITION, UNSPECIFIED COMPARISON: None. TECHNIQUE: Static and real time beck scale ultrasound Doppler spectral analysis, and color Doppler a cquired in the right upper extremity LIMITATIONS: None. FINDINGS: Patient has an AV fistula in the antecubital fossa, with a profoundly distended outflow ve in, measuring up to 3 cm in diameter. Slow flow is identified in the venous outflow varix in the upp er arm. Formal right upper extremity venous Doppler is recommended to evaluate for central venous st enosis along the right axillary vein or subclavian vein regions. Throughout the right forearm, there is extensive subcutaneous edema and interstitial tissue fluid. N o discrete hematoma or abscess is identified. IMPRESSION: Profoundly distended outflow vein, right upper arm, related to a AV fistula in the antec ubital fossa. Slow flow is identified, formal venous Doppler is recommended to evaluate for right ax illary or subclavian vein stenosis. Diffuse right forearm subcutaneous edema and soft tissue fluid without well-circumscribed abscess or hematoma. TECHNICAL DOCUMENTATION: JOB ID: [id number] [employer]- All Rights Reserved Reading location - IP/workstation name: [email or web address]
--- NOTE | 2018-09-08 17:27 | RADIOLOGY REPORT (SQ) ---
EXAM DESCRIPTION: VENOUS UNILATERAL UPPER COMPLETED DATE/TIME: 09/08/2018 5:03 pm REASON FOR STUDY: RUE PAIN SWELLING R22.31 LOCALIZED SWELLING, MASS AND LUMP, RIGHT UPPER LIMB L53. 9 ERYTHEMATOUS CONDITION, UNSPECIFIED COMPARISON: Right upper extremity soft tissue ultrasound earlier today TECHNIQUE: Dynamic and static beck scale and color images acquired of the right arm venous system. S elected spectral images acquired with additional compression and augmentation maneuvers. Images stor ed on PACS. LIMITATIONS: None. FINDINGS: RIGHT INTERNAL JUGULAR VEIN: Normal phasicity, compression, augmentation. No visualized echogenic material on beck scale. No defects on color images. Comparison opposite side normal. SUBCLAVIAN VEIN: Normal compression, augmentation. No visualized echogenic material on beck scale. No defects on color images. AXILLARY VEIN: Normal compression, augmentation. No visualized echogenic material on beck scale. No d efects on color images. BRACHIAL VEIN: Normal compression, augmentation. No visualized echogenic material on beck scale. No d efects on color images. BASILIC VEIN: Normal compression, augmentation. No visualized echogenic material on bekc scale. No de fects on color images. CEPHALIC VEIN: In the antecubital fossa, a radial artery to cephalic vein AV fistula is present. Maria E stomosis is patent. There is diffuse dilatation of the right cephalic vein which measures up to 3 cm in diameter. Normal compression, augmentation. No visualized echogenic material on beck scale. No d efects on color images. OTHER: Subcutaneous edema throughout the forearm soft tissues. Normal arterial flow in the brachial artery proximal to the fistula, and normal arterial flow in the radial and ulnar arteries throughout the forearm. IMPRESSION: No evidence of right upper extremity venous outflow obstruction. In the antecubital fos sa, a radial artery to cephalic vein AV fistula is present, patent anastomosis. Diffuse forearm subcutaneous edema No right cephalic vein, axillary vein, subclavian vein or internal jugular vein thrombosis is identif ied TECHNICAL DOCUMENTATION: JOB ID: [id number] [employer]- All Rights Reserved Reading location - IP/workstation name: [email or web address]
== END ==
LOC: RAD 15:19
PROVIDERS: ATTEND Internal Medicine Nephrology
DX: R22.31 Localized swelling, mass and lump, right upper limb (principal); L53.9 Erythematous condition, unspecified
CPT/HCPCS: 76881; 93971

== ENCOUNTER → 2018-09-12 | Outpatient (CLI) | payer MEDICARE | LOC: OD 09:21 | PROVIDERS: ATTEND Internal Medicine Nephrology | DX: N18.3 Chronic kidney disease, stage 3 (moderate) (principal); Z94.0 Kidney transplant status | CPT/HCPCS: 36415; 80197 ==

== ENCOUNTER 2018-10-31 11:26 | Emergency (ER) | payer MEDICARE ==
[2018-10-31 13:12] LABS: APPEARANCE,URINE CLEAR; BILIRUBIN,URINE NEGATIVE (NEGATIVE); COLOR,URINE YELLOW; GLUCOSE, URINE NEGATIVE (NEGATIVE); KETONES,URINE NEGATIVE (NEGATIVE); LEUKOCYTE ESTERASE,URINE MODERATE (NEGATIVE); NITRITE,URINE NEGATIVE (NEGATIVE); PROTEIN,URINE NEGATIVE (NEGATIVE); URINE SPECIFIC GRAVITY 1.008; UROBILINOGEN,URINE NEGATIVE mg/dL (<2.0)
[2018-10-31 13:54] LABS: HEMATOCRIT 34.5 % (37.9-51.0); HEMOGLOBIN 10.8 g/dL (13.5-17.0); MEAN CORPUSCULAR HEMOGLOBIN 28.1 pg (27.0-33.4); MEAN CORPUSCULAR HGB CONC 31.2 g/dL (32.0-36.0); MEAN CORPUSCULAR VOLUME 90 fl (80-97); PLATELET COUNT 451 10^3/uL (150-450); RED BLOOD COUNT 3.83 10^6/uL (4.35-5.55); RED CELL DISTRIBUTION WIDTH 17.8 % (11.5-14.0); WHITE BLOOD COUNT 7.2 10^3/uL (4.0-10.5)
[2018-10-31 14:11] LABS: ALANINE AMINOTRANSFERASE 30 U/L (21-72); ALBUMIN 3.6 g/dL (3.5-5.0); ALKALINE PHOSPHATASE 154 U/L (38-126); ANION GAP 11 (5-19); ASPARTATE AMINO TRANSFERASE 34 U/L (17-59); BILIRUBIN,DIRECT 0.6 mg/dL (0.0-0.4); BILIRUBIN,TOTAL 0.6 mg/dL (0.2-1.3); BLOOD UREA NITROGEN 79 mg/dL (7-20); CALCIUM 8.6 mg/dL (8.4-10.2); CARBON DIOXIDE 27 mmol/L (22-30); CHLORIDE 102 mmol/L (98-107); GLUCOSE 149 mg/dL (75-110); POTASSIUM 4.5 mmol/L (3.6-5.0); SODIUM 139.9 mmol/L (137-145); TOTAL PROTEIN 6.9 g/dL (6.3-8.2)
[2018-10-31 14:22] LABS: ABSOLUTE LYMPHOCYTES# (MANUAL) 0.2 10^3/uL (0.5-4.7); ABSOLUTE MONOCYTES # (MANUAL) 0.2 10^3/uL (0.1-1.4); ABSOLUTE NEUTROPHILS# (MANUAL) 6.6 10^3/uL (1.7-8.2); BASOPHILS % (MANUAL) 0 % (0-2); EOSINOPHILS % (MANUAL) 2 % (0-6); LYMPHOCYTES % (MANUAL) 3 % (13-45); MONOCYTES % (MANUAL) 3 % (3-13); SEGMENTED NEUTROPHILS % (MAN) 92 % (42-78); TOTAL CELLS COUNTED 100; TOXIC GRANULATION SLIGHT
[2018-10-31 14:25] LABS: ANISOCYTOSIS 2+; OVALOCYTES SLIGHT; PLATELET COMMENT ADEQUATE; POIKILOCYTOSIS SLIGHT; POLYCHROMASIA SLIGHT; TOXIC VACUOLATION PRESENT
--- NOTE | 2018-10-31 14:25 | ER Document Report ---
ED GI/ - General Information source: Patient TRAVEL OUTSIDE OF THE U.S. IN LAST 30 DAYS: No <CLARENCE DUEÑAS - Last Filed: 10/31/18 14:19> <IRENA MO - Last Filed: 10/31/18 15:51> - General Chief Complaint: Urinary Problem Stated Complaint: BLOOD IN URINE Time Seen by Provider: 10/31/18 11:53 Notes: 73-year-old male who presents to the emergency department today with complaints of hematuria which she noticed this morning. Patient states his Rapp catheter was last changed on Wednesday. Patient had a kidney transplant in December 2010. Patient states he stopped smoking in 2007. (CLARENCE DUEÑAS) The patient was seen here on 08/04/2018 with a climbing creatinine that peaked at 2.90, it had fallen to 2.55 by the time he was transferred almost 2 days later. When he was discharged from [place] his creatinine was down to 1.19 with a BUN of 37. He has not had the lab work checked since then until today in the emergency room where his creatinine is up to 2.03 and BUN is 79. The patient did have a Rapp catheter placed while he was here in the emergency room prior to seeing his creatinine start coming down. He did have his catheter changed 6 days ago. This morning he noted blood in the urine and did bring a specimen in a cup. It is considerably more grossly bloody on visual exam than the urine that is coming out of his Rapp now. (IRENA OM) - Related Data Allergies/Adverse Reactions: aspirin [Aspirin] Allergy (Verified 10/31/18 11:37) iron [Iron] Allergy (Verified 10/31/18 11:37) Past Medical History - General Information source: Patient - Social History Smoking Status: Former Smoker Chew tobacco use (# tins/day): No Frequency of alcohol use: None Drug Abuse: None Lives with: Family Family History: Reviewed & Not Pertinent, CAD, Hypertension Patient has suicidal ideation: No Patient has homicidal ideation: No - Past Medical History Cardiac Medical History: Reports: Hx Atrial Fibrillation, Hx Congestive Heart Failure, Hx Coronary Artery Disease, Hx Heart Attack - x2, Hx Hypercholesterolemia, Hx Pulmonary Embolism Pulmonary Medical History: Reports: Hx Asthma, Hx Bronchitis, Hx COPD, Hx Pneumonia, Hx Sleep Apnea Renal/ Medical History: Reports: Hx Benign Prostatic Hyperplasia - With known urinary retention, Hx End Stage Renal Disease - Patient was previously on hemodialysis prior to kidney transplant., Hx Hemodialysis - No longer on d ialysis Malignancy Medical History: Reports Hx Skin Cancer Musculoskeletal Medical History: Reports Hx Arthritis Past Surgical History: Reports: Hx Cardiac Catheterization - triple bypass, Hx Cardiac Surgery - cabg, Hx Coronary Artery Bypass Graft - 3 vessels on 09/19/2008, Hx Coronary Stent - 10/15/1999, Hx Kidney (Renal Surgery) - kidney transplant, Hx Open Heart Surgery - x 3V, Other - Kidney transplant, cataract extraction, skin cancer excision - Immunizations Hx Diphtheria, Pertussis, Tetanus Vaccination: Yes Hx Pneumococcal Vaccination: 06/25/16 <CLARENCE DUEÑAS - Last Filed: 10/31/18 14:19> Review of Systems - Review of Systems Constitutional: No symptoms reported EENT: No symptoms reported Cardiovascular: No symptoms reported Respiratory: No symptoms reported Gastrointestinal: No symptoms reported Genitourinary: See HPI, Hematuria Male Genitourinary: No symptoms reported Musculoskeletal: No symptoms reported Skin: No symptoms reported Hematologic/Lymphatic: No symptoms reported Neurological/Psychological: No symptoms reported -: Yes All other systems reviewed and negative <CLARENCE DUEÑAS - Last Filed: 10/31/18 14:19> Physical Exam <CLARENCE DUEÑAS - Last Filed: 10/31/18 14:19> - Vital signs Vitals: Temp Pulse Resp Pulse Ox 97.7 F 92 18 98 10/31/18 11:37 10/31/18 11:37 10/31/18 11:37 10/31/18 11:37 - Notes Notes: Physical Exam: General: Alert, appears well. HEENT: Normocephalic. Atraumatic. PERRL. Extraocular movements intact. Oropharynx clear. Neck: Supple. Non-tender. Respiratory: No respiratory distress. Clear and equal breath sounds bilaterally. Cardiovascular: Regular rate and rhythm. Abdominal: Normal Inspection. Non-tender. No distension. Normal Bowel Sounds. Back: Non-tender. No deformity or step off. Extremities: Moves all four extremities. Upper extremities: Normal inspection. Normal ROM. Lower extremities: Normal inspection. No edema. Normal ROM. Neurological: Normal cognition. AAOx4. Normal speech. Psychological: Normal affect. Normal Mood. Skin: Bruising in various stages of healing to bilateral upper extremities. (CLARENCE DUEÑAS) Course - Laboratory Result Diagrams: 10/31/18 13:26 10/31/18 13:26 <CLARENCE DUEÑAS - Last Filed: 10/31/18 14:19> - Laboratory Result Diagrams: 10/31/18 13:26 10/31/18 13:26 - Consults Dr. Narayanan Time consulted: 15:00 Consulted provider: other - Recommend starting the patient on Cipro and getting a renal ultrasound. - Transfer of Care Care transferred to following provider: Dr. Fisher <IRENA MO - Last Filed: 10/31/18 15:51> - Vital Signs Vital signs: Temp Pulse Resp BP Pulse Ox 97.7 F 92 18 98 10/31/18 11:37 10/31/18 11:37 10/31/18 11:37 10/31/18 11:37 - Laboratory Laboratory results interpreted by me: 10/31/18 10/31/18 10/31/18 13:00 13:26 13:26 RBC 3.83 L Hgb 10.8 L Hct 34.5 L MCHC 31.2 L RDW 17.8 H Plt Count 451 H Seg Neuts % (Manual) 92 H Lymphocytes % (Manual) 3 L Abs Lymphs (Manual) 0.2 L BUN 79 H Creatinine 2.03 H Est GFR ( Amer) 39 L Est GFR (Non-Af Amer) 33 L Glucose 149 H Direct Bilirubin 0.6 H Alkaline Phosphatase 154 H Urine Blood LARGE H Ur Leukocyte Esterase MODERATE H - Transfer of Care Notes: 10/31/18 15:50 Patient is presently pending renal ultrasound. Results should be discussed with Dr. Narayanan after the ultrasound is read. If the patient is discharged home, Dr. Narayanan had recommended that he be on Cipro pending urine cultures. (IRENA MO) Discharge <CLARENCE DUEÑAS - Last Filed: 10/31/18 14:19> <IRENA MO - Last Filed: 10/31/18 15:51> - Discharge Clinical Impression: Renal transplant recipient, Chronic indwelling Rapp catheter, Elevated serum creatinine Hematuria Qualifiers: Hematuria type: gross Qualified Code(s): R31.0 - Gross hematuria Referrals: AMY POOL MD [Primary Care Provider] - Follow up as needed Scribe Attestation: 10/31/18 14:54 I personally performed the services described in the documentation, reviewed and edited the documentation which was dictated to the scribe in my presence, and it accurately records my words and actions. (IRENA MO) Scribe Documentation - Scribe Written by Scribe:: Tres Wagoner, 10/31/2018 1425 acting as scribe for :: Nora <CLARENCE DUEÑAS - Last Filed: 10/31/18 14:19>
[2018-10-31] MEDS ORDERED: CIPROFLOXACIN HCL 500 MG TABLET PO ONE ×2 (15:21→18:39)
--- NOTE | 2018-10-31 17:53 | RADIOLOGY REPORT (SQ) ---
EXAM DESCRIPTION: DUPLEX ART/ANABELLA FLOW COMPLETE COMPLETED DATE/TIME: 10/31/2018 5:35 pm REASON FOR STUDY: Kidney transplant, climbing creatinine and BUN COMPARISON: None. TECHNIQUE: Realtime and static grayscale images acquired. Selected color Doppler, velocities and spe ctral images recorded. LIMITATIONS: None. FINDINGS: Transplanted kidney: RENAL ARTERY VELOCITIES: 59 cm/sec. Segmental artery velocity 38 cm/sec. RENAL VEIN: Color doppler flow present, patent. VELOCITY RATIO: 0 with. Normal waveforms. KIDNEY: 9.2 cm. No perinephric fluid. IMPRESSION: No evidence of renal artery stenosis transplanted kidney. COMMENT: NORMAL RENAL ARTERY/AORTA VELOCITY RATIO IS LESS THAN OR EQUAL TO 3.5. TECHNICAL DOCUMENTATION: JOB ID: [id number] [employer]- All Rights Reserved Reading location - IP/workstation name: [email or web address]
[2018-10-31] MEDS ORDERED: NORMAL SALINE 1000 ML 1,000 ML IV ONE (18:32)
[2018-10-31 20:17] VITALS: BP 103/47
== END 2018-10-31 20:45 | disposition home or self-care (01) ==
LOC: ER 11:26
DX: T83.511D Infection and inflammatory reaction due to indwelling urethral catheter, subsequent encounter (principal); N39.0 Urinary tract infection, site not specified; R31.0 Gross hematuria; Z94.0 Kidney transplant status; R79.89 Other specified abnormal findings of blood chemistry; R31.9 Hematuria, unspecified; Z87.891 Personal history of nicotine dependence; I50.9 Heart failure, unspecified; I25.10 Atherosclerotic heart disease of native coronary artery without angina pectoris; I25.2 Old myocardial infarction; J44.9 Chronic obstructive pulmonary disease, unspecified
CPT/HCPCS: 99284; 96360; 36415; 87086; 85025; 87088; 80053; 81001; 87186; 93975; A9270; J7030

== ENCOUNTER → 2018-12-06 | Outpatient (CLI) | payer MEDICARE ==
[2018-12-06 10:07] LABS: ABSOLUTE BASOPHILS # (AUTO) 0.1 10^3/uL (0.0-0.2); ABSOLUTE EOSINOPHILS # (AUTO) 0.4 10^3/uL (0.0-0.6); ABSOLUTE LYMPHOCYTES (AUTO) 0.6 10^3/uL (0.5-4.7); ABSOLUTE MONOCYTES (AUTO) 0.8 10^3/uL (0.1-1.4); ABSOLUTE NEUT (AUTO) 6.3 10^3/uL (1.7-8.2); BASOPHILS % (AUTO) 0.6 % (0-2); EOSINOPHILS % (AUTO) 5.2 % (0-6); HEMATOCRIT 31.5 % (37.9-51.0); HEMOGLOBIN 10.1 g/dL (13.5-17.0); LYMPHOCYTES % (AUTO) 7.7 % (13-45); MEAN CORPUSCULAR HEMOGLOBIN 28.1 pg (27.0-33.4); MEAN CORPUSCULAR HGB CONC 32.2 g/dL (32.0-36.0); MEAN CORPUSCULAR VOLUME 87 fl (80-97); PLATELET COUNT 518 10^3/uL (150-450); RED CELL DISTRIBUTION WIDTH 16.6 % (11.5-14.0); SEGMENTED NEUTROPHILS % (AUTO) 76.5 % (42-78); TOTAL CELLS COUNTED % (AUTO) 100 %; WHITE BLOOD COUNT 8.2 10^3/uL (4.0-10.5)
[2018-12-06 10:29] LABS: AMORPHOUS SEDIMENT,URINE TRACE /HPF; APPEARANCE,URINE CLOUDY; BILIRUBIN,URINE NEGATIVE (NEGATIVE); COLOR,URINE YELLOW; GLUCOSE, URINE NEGATIVE (NEGATIVE); KETONES,URINE NEGATIVE (NEGATIVE); LEUKOCYTE ESTERASE,URINE LARGE (NEGATIVE); NITRITE,URINE POSITIVE (NEGATIVE); PROTEIN,URINE 30 mg/dL (NEGATIVE); URINE SPECIFIC GRAVITY 1.014; UROBILINOGEN,URINE NEGATIVE mg/dL (<2.0)
[2018-12-06 10:33] LABS: ALBUMIN 3.2 g/dL (3.5-5.0); ANION GAP 11 (5-19); BLOOD UREA NITROGEN 73 mg/dL (7-20); CALCIUM 8.5 mg/dL (8.4-10.2); CARBON DIOXIDE 31 mmol/L (22-30); CHLORIDE 99 mmol/L (98-107); GLUCOSE 105 mg/dL (75-110); IRON(TIBC) 61.1 ug/dL (49-181); PHOSPHORUS 3.7 mg/dL (2.5-4.5); POTASSIUM 4.7 mmol/L (3.6-5.0)
== END ==
LOC: OD 09:24
PROVIDERS: ATTEND Internal Medicine Nephrology
DX: N18.3 Chronic kidney disease, stage 3 (moderate) (principal); D64.9 Anemia, unspecified; Z94.0 Kidney transplant status
CPT/HCPCS: 36415; 80048; 80197; 81001; 82040; 82306; 82728; 83540; 83550; 83970; 84100; 85025

== ENCOUNTER 2019-01-13 13:34 | Emergency (ER) | payer MEDICARE ==
--- NOTE | 2019-01-13 14:31 | ER Document Report ---
ED General - General Chief Complaint: Pain All Over Stated Complaint: BODY ACHES Time Seen by Provider: 01/13/19 14:02 Primary Care Provider: PORSCHE SAPP MD [Primary Care Provider] - Follow up as needed TRAVEL OUTSIDE OF THE U.S. IN LAST 30 DAYS: No - HPI Notes: Patient is a 73-year-old male with a history of heart failure, chronic kidney disease status post kidney transplant in the past, chronic pain, bedbound who presents the emergency department with his power of hydrography teacher and family for an evaluation as he has had chronic pain for 3 weeks. Patient has been on hospice for the past 2-3 weeks as well and power of hydrography teacher states that he started having pain before he was placed on hospice. His car seat upholsterer is Dr. Owusu, Cardio Dr. Rae, and PCM Dr. Sapp. Patient is also a DNR/DNI. Power of hydrography teacher states that hospice was talking to him today and offered him to come to the hospital for an evaluation for "one more chance" to see if there is anything that we can do to help. Power of hydrography teacher states that they are going to be placed back on hospice if he goes home today. He is otherwise able to eat and drink, but does have decreased p.o. intake. He has chronic generalized weakness. Patient states that his swelling to his extremities are what is causing the most pain and discomfort. He does take morphine for pain management at home. He has a urinary catheter in place. He is having bowel movements still. Power of hydrography teacher states that he has otherwise been very alert and oriented. Pt has an occ cough, chronic with his CHF. Denies any headache, fever, neck pain, changes in vision/speech/mentation/hearing, URI, sore throat, chest pain, palpitations, syncope, shortness of breath, wheeze, dyspnea, abdominal pain, nausea/vomiting/diarrhea, urinary retention, dysuria, hematuria, or rash. - Related Data Allergies/Adverse Reactions: aspirin [Aspirin] Allergy (Verified 10/31/18 11:37) iron [Iron] Allergy (Verified 10/31/18 11:37) Past Medical History - Social History Smoking Status: Unknown if Ever Smoked Family History: Reviewed & Not Pertinent, CAD, Hypertension - Past Medical History Cardiac Medical History: Reports: Hx Atrial Fibrillation, Hx Congestive Heart Failure, Hx Coronary Artery Disease, Hx Heart Attack - x2, Hx Hypercholesterolemia, Hx Pulmonary Embolism Pulmonary Medical History: Reports: Hx Asthma, Hx Bronchitis, Hx COPD, Hx Pneumonia, Hx Sleep Apnea Renal/ Medical History: Reports: Hx Benign Prostatic Hyperplasia - With known urinary retention, Hx End Stage Renal Disease - Patient was previously on hemodialysis prior to kidney transplant., Hx Hemodialysis - No longer on dialysis. Denies: Hx Peritoneal Dialysis Malignancy Medical History: Reports Hx Skin Cancer Musculoskeletal Medical History: Reports Hx Arthritis Past Surgical History: Reports: Hx Cardiac Catheterization - triple bypass, Hx Cardiac Surgery - cabg, Hx Coronary Artery Bypass Graft - 3 vessels on 09/19/2008, Hx Coronary Stent - 10/15/1999, Hx Kidney (Renal Surgery) - kidney transplant, Hx Open Heart Surgery - x 3V, Other - Kidney transplant, cataract extraction, skin cancer excision - Immunizations Hx Diphtheria, Pertussis, Tetanus Vaccination: Yes Hx Pneumococcal Vaccination: 06/25/16 Review of Systems - Review of Systems -: Yes All other systems reviewed and negative Physical Exam - Vital signs Vitals: Temp Resp Pulse Ox 98 F 13 100 01/13/19 13:45 01/13/19 13:45 01/13/19 13:45 - Notes Notes: PHYSICAL EXAMINATION: GENERAL: Appears dusky, weak. Otherwise A&Ox3 and answers questions appropriately. HEAD: Atraumatic, normocephalic. EYES: Pupils equal round and reactive to light, extraocular movements intact, sclera mildly icteric, conjunctiva are normal. ENT: Nares patent and without discharge. oropharynx clear without exudates. No tonsilar hypertrophy or erythema. Moist mucous membranes. NECK: Normal range of motion, supple without lymphadenopathy LUNGS: Breath sounds clear to auscultation bilaterally and equal. No wheezes rales or rhonchi. HEART: Regular rate and rhythm without murmurs, rubs, gallops. ABDOMEN: Soft, nontender, nondistended abdomen. No guarding, no rebound. No masses appreciated. Normal bowel sounds present. No CVA tenderness bilaterally. Musculoskeletal: FROM to passive/active. Strength 4+/5. Extremities: generalized edema b/l primarily to UE's. Peripheral pulses 1+. Capillary refill less than 3 seconds. NEUROLOGICAL: Cranial nerves grossly intact. Normal speech. Normal sensory, motor exams PSYCH: flat SKIN: see above. + mild yellow color Course - Re-evaluation Re-evalutation: 01/13/19 This case has been reviewed with Dr. Reese who is in agreement with dispo/plan: Patient is an afebrile, well-hydrated, 73-year-old male who presents to the emergency department with an acute UTI and elevated bilirubin. Vitals are acceptable without significant tachycardia, tachypnea, or hypoxia. PE is otherwise unremarkable. CBC acceptable without leukocytosis. CMP is that generalized baseline with a creatinine clearance of 30. Lactic/Lipase negative. CXR negative. See urinalysis results. Urine culture is pending. From his last urine culture, he grew Klebsiella and culture/sensitivity was reviewed. According to up-to-date Rocephin was given IV. According to up-to-date creatinine clearance of 30 still allows for Cipro 500 mg twice daily. Patient has had blood pressure readings that were mildly low which were compensated with 2 L of fluid (now 101/69). This has otherwise been a more involved case as patient was taken off of hospice today for an evaluation, but is going to be placed back on hospice when he is discharged. He is still a DNR/DNI. I did thoroughly review with the POA that in the worst case scenario he could go home, get worse, and possibly . No encephalopathy present at this time. He has not had any CP, LEVINE, or SOB. Low suspicion/risk for meningitis, acute appendicitis, bowel obstruction, acute cholecystitis, acute cholangitis, perforated diverticulitis, incarcerated hernia, pancreatitis, perforated ulcer, peritonitis, sepsis, or other systemic emergent condition at this time. Patient is aware that his condition can change from initial presentation and he needs to monitor symptoms closely and seek medical attention if any acute changes. Conservative measures otherwise for symptoms. Recheck with PCM in 2-3 days. Return to the ED with any worsening/concerning symptoms otherwise as reviewed in discharge. Patient is in agreement. - Vital Signs Vital signs: Temp Pulse Resp BP Pulse Ox 98 F 26 H 97/49 L 100 01/13/19 13:45 01/13/19 16:30 01/13/19 16:30 01/13/19 16:30 - Laboratory Result Diagrams: 01/13/19 13:58 01/13/19 13:58 Laboratory results interpreted by me: 01/13/19 01/13/19 01/13/19 13:58 13:58 14:39 RBC 3.46 L Hgb 9.4 L Hct 30.0 L MCHC 31.4 L RDW 17.8 H Seg Neuts % (Manual) 86 H Lymphocytes % (Manual) 3 L Abs Lymphs (Manual) 0.3 L Sodium 133.4 L Chloride 94 L BUN 95 H Creatinine 2.18 H Est GFR ( Amer) 36 L Est GFR (Non-Af Amer) 30 L Calcium 8.3 L Total Bilirubin 1.7 H Direct Bilirubin 1.3 H AST 72 H Alkaline Phosphatase 277 H Albumin 3.1 L Urine Protein 30 H Urine Blood MODERATE H Urine Urobilinogen 4.0 H Ur Leukocyte Esterase MODERATE H Discharge - Discharge Clinical Impression: Acute UTI (urinary tract infection), Generalized pain Condition: Stable Disposition: HOME, SELF-CARE Instructions: Urinary Tract Infection ([facility]), Ciprofloxacin ([facility]) Additional Instructions: Maintain adequate fluid and food intake Wilmot diet (B.R.[employer].T.) Bananas, rice, apples, toast, etc Zofran as needed tylenol if needed Monitor for any worsening symptoms Recheck with your PCM in 2-3 days Return to the ED with any worsening symptoms and/or development of fever, headache, chest pain, palpitations, syncope, shortness of breath, trouble breathing, abdominal pain, n/v/d, blood in stool/urine, weakness, or other worsening symptoms that are concerning to you. Prescriptions: Ciprofloxacin HCl [Cipro 500 mg Tablet] 500 mg PO BID #14 tablet Referrals: PORSCHE SAPP MD [Primary Care Provider] - 01/16/19
[2019-01-13] MEDS: MORPHINE SULFATE 10 MG/ML INJ IV ONE ×2 (14:36→14:44)
[2019-01-13 14:42] LABS: ALANINE AMINOTRANSFERASE 34 U/L (21-72); ALBUMIN 3.1 g/dL (3.5-5.0); ALKALINE PHOSPHATASE 277 U/L (38-126); ANION GAP 12 (5-19); ASPARTATE AMINO TRANSFERASE 72 U/L (17-59); BILIRUBIN,DIRECT 1.3 mg/dL (0.0-0.4); BILIRUBIN,TOTAL 1.7 mg/dL (0.2-1.3); BLOOD UREA NITROGEN 95 mg/dL (7-20); CALCIUM 8.3 mg/dL (8.4-10.2); CARBON DIOXIDE 27 mmol/L (22-30); CHLORIDE 94 mmol/L (98-107); GLUCOSE 106 mg/dL (75-110); POTASSIUM 4.3 mmol/L (3.6-5.0); SODIUM 133.4 mmol/L (137-145); TOTAL PROTEIN 6.5 g/dL (6.3-8.2)
[2019-01-13] MEDS ORDERED: MORPHINE SULFATE 10 MG/ML INJ IV ONE (14:42)
[2019-01-13 14:43] LABS: HEMOGLOBIN 9.4 g/dL (13.5-17.0); MEAN CORPUSCULAR HEMOGLOBIN 27.2 pg (27.0-33.4); MEAN CORPUSCULAR HGB CONC 31.4 g/dL (32.0-36.0); MEAN CORPUSCULAR VOLUME 87 fl (80-97); RED BLOOD COUNT 3.46 10^6/uL (4.35-5.55); RED CELL DISTRIBUTION WIDTH 17.8 % (11.5-14.0); WHITE BLOOD COUNT 9.1 10^3/uL (4.0-10.5)
[2019-01-13 14:56] LABS: APPEARANCE,URINE TURBID; BILIRUBIN,URINE NEGATIVE (NEGATIVE); GLUCOSE, URINE NEGATIVE (NEGATIVE); KETONES,URINE NEGATIVE (NEGATIVE); LEUKOCYTE ESTERASE,URINE MODERATE (NEGATIVE); NITRITE,URINE NEGATIVE (NEGATIVE); PROTEIN,URINE 30 mg/dL (NEGATIVE); URINE SPECIFIC GRAVITY 1.014
[2019-01-13 14:58] LABS: COLOR,URINE DARK YELLOW
[2019-01-13] MEDS ORDERED: CEFTRIAXONE 1 GM/D5W RTU 1 GM/50 ML RTUPB IV ONE (15:00)
[2019-01-13 15:03] LABS: ABSOLUTE LYMPHOCYTES# (MANUAL) 0.3 10^3/uL (0.5-4.7); ABSOLUTE NEUTROPHILS# (MANUAL) 7.8 10^3/uL (1.7-8.2); BASOPHILS % (MANUAL) 0 % (0-2); EOSINOPHILS % (MANUAL) 0 % (0-6); LYMPHOCYTES % (MANUAL) 3 % (13-45); MONOCYTES % (MANUAL) 11 % (3-13); SEGMENTED NEUTROPHILS % (MAN) 86 % (42-78); TOTAL CELLS COUNTED 100
--- NOTE | 2019-01-13 15:05 | RADIOLOGY REPORT (SQ) ---
EXAM DESCRIPTION: CHEST SINGLE VIEW COMPLETED DATE/TIME: 01/13/2019 3:01 pm REASON FOR STUDY: cough COMPARISON: 07/25/2016 EXAM PARAMETERS: NUMBER OF VIEWS: One view. TECHNIQUE: Single frontal radiographic view of the chest acquired. RADIATION DOSE: NA LIMITATIONS: None. FINDINGS: LUNGS AND PLEURA: No opacities, masses or pneumothorax. No pleural effusion. MEDIASTINUM AND HILAR STRUCTURES: No masses. Contour normal. HEART AND VASCULAR STRUCTURES: Heart normal in size. Normal vasculature. BONES: No acute findings. HARDWARE: Sternotomy wires are in place. Clips overlie the left and right axilla. OTHER: No other significant finding. IMPRESSION: NO ACUTE RADIOGRAPHIC FINDING IN THE CHEST. TECHNICAL DOCUMENTATION: JOB ID: [id number] [employer]- All Rights Reserved Reading location - IP/workstation name: [email or web address]
[2019-01-13 15:06] LABS: ANISOCYTOSIS 1+; OVALOCYTES 1+; PLATELET COMMENT ADEQUATE; POIKILOCYTOSIS 1+; TOXIC VACUOLATION PRESENT
[2019-01-13 15:07] LABS: PLATELET COUNT 438 10^3/uL (150-450)
[2019-01-13 15:10] LABS: LIPASE 208.3 U/L (23-300)
[2019-01-13] MEDS: NORMAL SALINE 1000 ML 1,000 ML IV PRN ×2 (16:22→16:58)
--- NOTE | 2019-01-13 16:46 | RADIOLOGY REPORT (SQ) ---
EXAM DESCRIPTION: U/S ABDOMEN LIMITED W/O DOP COMPLETED DATE/TIME: 01/13/2019 4:19 pm REASON FOR STUDY: elevated bili COMPARISON: None. TECHNIQUE: Dynamic and static grayscale images acquired of the abdomen and recorded on PACS. Additio kyra selected color Doppler and spectral images recorded. LIMITATIONS: None. FINDINGS: PANCREAS: Nonvisualization LIVER: Normal size. 15.0 cm. Normal echotexture. No masses. LIVER VASCULATURE: Normal directional flow of the main portal vein and hepatic veins. GALLBLADDER: Hydropic. 13.9 x 6.5 x 5.1 cm. ULTRASOUND-DETECTED CORDOBA'S SIGN: Negative. INTRAHEPATIC DUCTS AND COMMON DUCT: CBD and intrahepatic ducts normal caliber. No filling defects. INFERIOR VENA CAVA: Normal flow. AORTA: Limited visualization RIGHT KIDNEY: The patient is status post transplant. [place] kidney measures 7.1 cm. Transplant kid romi 10.0 cm. No hydronephrosis, mass or other significant abnormality involving the transplanted ki dney. PERITONEAL AND RIGHT PLEURAL SPACE: No ascites or effusions. OTHER: No other significant findings. IMPRESSION: Marked dilatation or hydrops of the gallbladder that includes debris within the lumen. No gallstones or thickening of the wall. Transplanted kidney appears normal. Pancreas and aorta valencia boptimally visualized. TECHNICAL DOCUMENTATION: JOB ID: [id number] [employer]- All Rights Reserved Reading location - IP/workstation name: [email or web address]
[2019-01-13 23:14] VITALS: BP 110/58
== END 2019-01-13 20:30 | disposition home or self-care (01) ==
LOC: ER 13:34
DX: N39.0 Urinary tract infection, site not specified (principal); M79.10 Myalgia, unspecified site; M79.89 Other specified soft tissue disorders; N18.6 End stage renal disease; I50.9 Heart failure, unspecified; I48.91 Unspecified atrial fibrillation; I25.10 Atherosclerotic heart disease of native coronary artery without angina pectoris; E78.00 Pure hypercholesterolemia, unspecified; I25.2 Old myocardial infarction; Z86.711 Personal history of pulmonary embolism; Z66 Do not resuscitate; Z95.1 Presence of aortocoronary bypass graft; Z94.0 Kidney transplant status; Z74.01 Bed confinement status
CPT/HCPCS: 99284; 96361; 96375; 96365; 36415; 87086; 83605; 83690; 85025; 87088; 80053; 81001; 87186; 71045; 76705; J2270; J7030; J0696